=== PATIENT | female | born 1955 | race Caucasian/White ===

== ENCOUNTER 2021-11-14 16:40 | Outpatient (CLI) | payer MEDICARE, SELFPAY ==
[2021-11-14 11:46] LABS: Chloride* 104 mmol/L (96-114); Potassium* 4.2 mmol/L (3.6-5.1); Sodium* 141 mmol/L (135-149)
[2021-11-14 11:48] LABS: Creatinine* 0.9 mg/dL (0.5-1.5); Estimated Glomerular Filt Rate 70 ml/min
[2021-11-14 11:49] LABS: Blood Urea Nitrogen* 21 mg/dL (7-30); Calcium* 9.8 mg/dL (8.4-10.6); Carbon Dioxide* 29 mmol/L (20-32); Glucose* 97 mg/dL (60-115)
[2021-11-14 12:13] LABS: TSH With Reflex to FT4* 0.552 uIU/mL (0.270-4.200)
== END 2021-11-14 16:41 | disposition home or self-care (01) ==
PROVIDERS: PCP Internal Medicine; Visit Provider Internal Medicine
DX: Z01.419 Encounter for gynecological examination (general) (routine) without abnormal findings (principal); E03.9 Hypothyroidism, unspecified; I10 Essential (primary) hypertension
CPT/HCPCS: 80048; 84443

== ENCOUNTER 2021-12-07 14:09 | Emergency (ER) | payer MEDICARE, SELFPAY ==
[2021-12-07] VITALS (17 sets, daily range): BP systolic 118; BP diastolic 73; PULSE 78–97; RESP 18; TEMP 37.1; O2SAT 86–99; BMI 43.0
--- NOTE | 2021-12-07 15:13 | CRLHL7_ITS ---
For Patients: As a result of the Cures Act, medical imaging exams and procedure reports are released immediately into your electronic medical record. You may view this report before your referring provider. If you have questions, please contact your health care provider. Indication: Fever Comparison: None available. Technique: PA and lateral views of the chest Findings: There is hyperinflation and chronic interstitial change with basilar atelectasis versus scar. There is no dense consolidation, effusion or pneumothorax. The cardiomediastinal silhouette is within normal limits. The bony thorax is grossly intact. Impression: Hyperinflation and chronic interstitial change with basilar atelectasis versus scar. Dictated by Ziyad Yanes MD @ 12/07/2021 4:47:00 PM (Electronically Signed)
--- NOTE | 2021-12-07 15:21 | ED.SOB ---
HPI - SOB/Dyspnea General Chief Complaint: Shortness of Breath/Dyspnea Stated Complaint: Low oxygen Time Seen by Provider: 12/07/21 14:43 History of Present Illness HPI Narrative: 66-year-old woman presenting to the emergency department with concern of shortness of breath. Was seen in urgent care with oxygen saturations 82-84%, given DuoNeb and directed to the emergency department. She admits to feeling a little bit better with the DuoNeb. She arrives 87% on room air. Apparently has been having increasing shortness of breath over the last 2 weeks or so. Does smoke. She has underlying suspected diagnosis of COPD. Was directed for formal PFT testing but says has not received of phone call to schedule that appointment. She believes herself to be down in weight with poor appetite at this point. She is wondering if she may have a pneumonia as she is more short of breath and has increased cough when she lays down and this would be consistent with a prior diagnosis of pneumonia. She is also worried about RSV is that it has been going around. Has not had any fever. Does not have any chest pain. No abdominal pain. Cough is not productive. On the 20 of November was seen in primary care for wellness check and initiated on albuterol inhaler which she has been using every couple of hours she says admittedly too often she thinks. She had been using Primatene mist it sounds like prior to this albuterol inhaler. Reviewing records from her visit on the shows oxygen saturation had 93%. Active Problems?(Updated 11/20/21 @ 13:02 by Ciara Jon MD) Morbid obesity with body mass index (BMI) of 40.0 or higher (Acute) E66.01 Osteopenia (Acute) M85.80 by DEXA here 11/30Nicotine dependence (Acute 03/23/12) F17.200 Morbid obesity (Acute 03/23/12) E66.01 Hypothyroidism (Acute 03/23/12) E03.9 on levothyroxineEssential hypertension (Acute 03/23/12) I10 Dxed around 2009, on medication Surgical History?(Updated 11/19/21 @ 09:21 by Uma Galvan) History of tubal ligation (03/23/12) Related Data Previous Rx's Medication Instructions Recorded albuterol sulfate 90 mcg/actuation 2 inh inhalation Q6-8H PRN 11/20/21 aerosol inhaler (ProAir HFA) shortness of breath or wheezing #8.5 grams levothyroxine 150 mcg tablet 150 mcg PO DAILY #90 tabs 11/20/21 lisinopril 20 2 tab PO DAILY #180 tabs 11/20/21 mg-hydrochlorothiazide 25 mg tablet Allergies Allergy/AdvReac Type Severity Reaction Status Date / Time No Known Drug Allergies Allergy Verified 12/07/21 14:26 Review of Systems Status of ROS: Reports: 10 or more systems reviewed and unremarkable except as noted in History and below [facility] Surgical History (Updated 11/19/21 @ 09:21 by Uma Galvan) History of tubal ligation (03/23/12) Social History Smoking Status: Current every day smoker What tobacco products do you use: cigarettes Smoking packs per day: 1 Smoking cigarettes per day: 20.0 Do you use any of these nicotine containing products: None Second hand tobacco smoke exposure: No How often do you have a drink containing alcohol: never How often do you have six or more drinks on one occasion: Never AUDIT-C Alcohol total score: 0 Non-prescribed substance use: denies use Little interest or pleasure in doing things: not at all Feeling down, depressed, or hopeless: not at all Exam Narrative: Exam Narrative: Calm. Seated upright in bed appears to prefer not to lay down. Nasal cannula oxygen in place. At 2 L satting 94%. Cranial nerves 2-12 are intact. Oropharynx is moist with upper denture plate and lower retainer. No stridor. Neck is supple. There is no JVD appreciated. Lungs are with generally quite diminished air sounds. Trace end-expiratory wheezing. She is not particularly labored in breathing at this time. Not tachypneic. Abdomen is obese soft and nontender. Extremities are with mild dependent edema. Nonpitting. Well-perfused. Const: Vital Signs, click to edit/add: Vital Signs - 24 hr 12/07/21 14:21 12/07/21 14:36 12/07/21 15:01 Temperature 98.8 F Pulse Rate 96 84 Pulse Rate [Right Pulse Oximeter] 97 Respiratory Rate 18 Blood Pressure [Ri ght Upper Arm] 118/73 Pulse Oximetry 87 L 92 92 Oxygen Delivery Me thod Room Air Nasal Cannula Nasal Cannula Oxygen Flow Rate 2 2 12/07/21 15:30 12/07/21 15:36 12/07/21 16:06 Temperature Pulse Rate 80 83 96 Pulse Rate [Right Pulse Oximeter] Respiratory Rate Blood Pressure [Ri ght Upper Arm] Pulse Oximetry 93 93 90 Oxygen Delivery Me thod Nasal Cannula Nasal Cannula Nasal Cannula Oxygen Flow Rate 2 2 2 12/07/21 15:12 12/07/21 15:17 12/07/21 16:30 Temperature Pulse Rate 84 Pulse Rate [Right Pulse Oximeter] Respiratory Rate Blood Pressure [Ri ght Upper Arm] Pulse Oximetry 93 94 94 Oxygen Delivery Me thod Nasal Cannula Nasal Cannula Oxygen Flow Rate 2 2 12/07/21 17:00 12/07/21 17:30 12/07/21 18:00 Temperature Pulse Rate 87 82 84 Pulse Rate [Right Pulse Oximeter] Respiratory Rate Blood Pressure [Ri ght Upper Arm] Pulse Oximetry 91 92 90 Oxygen Delivery Me thod Nasal Cannula Nasal Cannula Oxygen Flow Rate 2 2 12/07/21 18:30 12/07/21 19:00 12/07/21 19:30 Temperature Pulse Rate 81 78 79 Pulse Rate [Right Pulse Oximeter] Respiratory Rate Blood Pressure [Ri ght Upper Arm] Pulse Oximetry 91 92 99 Oxygen Delivery Me thod Nasal Cannula Nasal Cannula Oxygen Flow Rate 2 2 12/07/21 19:45 12/07/21 20:00 Temperature Pulse Rate 92 95 Pulse Rate [Right Pulse Oximeter] Respiratory Rate Blood Pressure [Ri ght Upper Arm] Pulse Oximetry 86 L 87 L Oxygen Delivery Me thod Nasal Cannula Oxygen Flow Rate 2 Documenting provider has reviewed patient's vital signs: yes Course Course Hospital Course: We monitored on oximetry. Working to titrate oxygen given likely COPD status. Requested RT involvement. Labs and imaging pending. Albuterol neb at this time as well as Solu-Medrol Coughed more following albuterol nebulization she said. Later in course also received a DuoNeb. Kept for extended period of time in the emergency department looking for improvement and without beds for hospitalization here or elsewhere regionally. Re-evaluations over time continue to show rather low oxygen saturations but never otherwise in what appears to be respiratory distress, breathing easily and speaking in full sentences. Reauscultation does show improved movement of air still with trace end-expiratory wheezes. Still quite tight. She ultimately reports feeling better than she has felt in days Labs with mildly elevated white count and CRP. Venous blood gases with mild CO2 retention. Upon my review of two view chest x-ray I did have some concern of involving infiltrative process in the right lower lung though Radiology over-read suspects more atelectasis or scarring. While mildly elevated white count may be partially due to stress response, I think it prudent to initiate antibiotics in this case. Vital Signs Vital signs: Initial Vital Signs Temperature 98.8 F 12/07/21 14:21 Temperature Source Temporal Artery Scan 12/07/21 14:21 Pulse Rate 97 12/07/21 14:21 Respiratory Rate 18 12/07/21 14:21 Blood Pressure 118/73 12/07/21 14:21 Blood Pressure Mean 88 12/07/21 14:21 Blood Pressure Position Sitting 12/07/21 14:21 Pulse Oximetry 87 L 12/07/21 14:21 Oxygen Delivery Method 12/07/21 14:21 Vital Signs Temperature 98.8 F 12/07/21 14:21 Pulse Rate 97 12/07/21 14:21 Respiratory Rate 18 12/07/21 14:21 Blood Pressure 118/73 12/07/21 14:21 Pulse Oximetry 87 L 12/07/21 14:21 Oxygen Delivery Method 12/07/21 14:21 Temperature 98.8 F 12/07/21 14:21 Pulse Rate 95 12/07/21 20:00 Respiratory Rate 18 12/07/21 14:21 Blood Pressure 118/73 12/07/21 14:21 Pulse Oximetry 87 L 12/07/21 20:00 Oxygen Delivery Method 12/07/21 19:45 Oxygen Flow Rate 2 12/07/21 19:45 MDM - SOB/Dyspnea Medical Records Attestation: I reviewed the patient's medical records. Lab Data Attestation: I reviewed the patient's lab results. Labs: Lab Results 12/07/21 12/07/21 12/07/21 Range/Units 15:45 15:45 15:45 WBC (4.50-11.00) K/uL RBC (4.00-5.20) m/uL Hgb (12.0-16.0) gm/dL Hct (33.0-51.0) % MCV (80-100) fL MCH (26-34) pg MCHC (32-36) gm/dL RDW Coeff of Rick (11.5-15.5) % Plt Count (140-440) K/uL Neut % (Auto) (42.0-72.0) % Lymph % (Auto) (20-44) % Phillips % (Auto) (0.0-11.0) % Eos % (Auto) (0.0-7.0) % Baso % (Auto) (0.0-3.0) % Neut # (Auto) (1.7-7.0) K/uL Lymph # (Auto) (0.90-2.90) K/uL Phillips # (Auto) (0.00-0.90) K/UL Eos # (Auto) (0.00-0.50) K/uL Baso # (Auto) (0.00-0.30) K/uL Abs Immat Gran (auto) (0.00-0.30) K/uL D-Dimer Quant (PE/DVT) 0.48 (0.00-0.50) ug/ml VBG pH 7.392 (7.32-7.43) VBG pCO2 52 H (40-50) mmHG VBG pO2 47.4 H (25-47) mmHG VBG HCO3 32 H (21-28) mmol/L Sodium 139 (135-149) mmol/L Potassium 4.0 (3.6-5.1) mmol/L Chloride 99 (96-114) mmol/L Carbon Dioxide 30 (20-32) mmol/L BUN 24 (7-30) mg/dL Creatinine 1.1 (0.5-1.5) mg/dL Estimated Creat Clear 35.65 Estimated GFR 55 ml/min Glucose 106 (60-115) mg/dL Calcium 9.7 (8.4-10.6) mg/dL Magnesium 1.7 (1.5-2.6) mg/dL Troponin I < 0.01 L (0.01-0.04) ng/mL C-Reactive Protein 1.8 H (0.5-1.0) mg/dL NT-Pro-B Natriuret Pep 180 H (0-125) PG/mL SARS-CoV-2 (PCR) (Negative) Influenza Type A (PCR) (Negative) Influenza Type B (PCR) (Negative) RSV (PCR) (Negative) POC Troponin I (0.01-0.04) ng/ml 12/07/21 12/07/21 12/07/21 Range/Units 15:45 15:50 16:00 WBC 12.29 H (4.50-11.00) K/uL RBC 5.27 H (4.00-5.20) m/uL Hgb 15.3 (12.0-16.0) gm/dL Hct 48.0 (33.0-51.0) % MCV 91 (80-100) fL MCH 29 (26-34) pg MCHC 32 (32-36) gm/dL RDW Coeff of Rick 15.9 H (11.5-15.5) % Plt Count 308 (140-440) K/uL Neut % (Auto) 75.6 H (42.0-72.0) % Lymph % (Auto) 12.2 L (20-44) % Phillips % (Auto) 6.6 (0.0-11.0) % Eos % (Auto) 3.7 (0.0-7.0) % Baso % (Auto) 1.8 (0.0-3.0) % Neut # (Auto) 9.30 H (1.7-7.0) K/uL Lymph # (Auto) 1.50 (0.90-2.90) K/uL Phillips # (Auto) 0.80 (0.00-0.90) K/UL Eos # (Auto) 0.50 (0.00-0.50) K/uL Baso # (Auto) 0.20 (0.00-0.30) K/uL Abs Immat Gran (auto) 0.01 (0.00-0.30) K/uL D-Dimer Quant (PE/DVT) (0.00-0.50) ug/ml VBG pH (7.32-7.43) VBG pCO2 (40-50) mmHG VBG pO2 (25-47) mmHG VBG HCO3 (21-28) mmol/L Sodium (135-149) mmol/L Potassium (3.6-5.1) mmol/L Chloride (96-114) mmol/L Carbon Dioxide (20-32) mmol/L BUN (7-30) mg/dL Creatinine (0.5-1.5) mg/dL Estimated Creat Clear Estimated GFR ml/min Glucose (60-115) mg/dL Calcium (8.4-10.6) mg/dL Magnesium (1.5-2.6) mg/dL Troponin I (0.01-0.04) ng/mL C-Reactive Protein (0.5-1.0) mg/dL NT-Pro-B Natriuret Pep (0-125) PG/mL SARS-CoV-2 (PCR) Negative SARS-CoV-2 (Negative) Influenza Type A (PCR) Negative PCR FLU A (Negative) Influenza Type B (PCR) Negative PCR FLU B (Negative) RSV (PCR) Negative PCR RSV (Negative) POC Troponin I 0.00 L (0.01-0.04) ng/ml Discharge Plan Discharge Clinical Impression: COPD with exacerbation, Nicotine dependence, Hypoxia Patient Disposition: Home w/ Parent or Adult Condition: Stable Additional Instructions: Please do best to stop smoking. As you said you have not been able to smoke lately anyway. Might check with [employer] or [email or web address] for resources and/or follow-up with your doctor to discuss further. Do make appointment for follow-up in clinic in a week. Follow up also on that testing for your lung function. I suspect you will need other controller medication including different inhalers. Use your current inhaler (albuterol) with a spacer as demonstrated by [facility]piratory therapy [facility]aspreet. I would use your albuterol 4 times a day regardless of need for the next 4 days. Return for increasing and persistent shortness of breath, chest pain, lightheadedness, fever. Remember you have albuterol inhaler refills. Take the prednisone as 60 mg(3 tablets) tomorrow then 40 mg(2 tablets) daily for days 3 through 6, then 20 mg daily days 7 through 10. Start the doxycycline tonight. Prescriptions: No Action albuterol sulfate [ProAir HFA] 90 mcg/actuation HFA aerosol inhaler 2 inh inhalation Q6-8H PRN (Reason: shortness of breath or wheezing) Qty: 8.5 5RF levothyroxine 150 mcg tablet 150 mcg PO DAILY Qty: 90 3RF lisinopril-hydrochlorothiazide 20-25 mg tablet 2 tab PO DAILY Qty: 180 3RF Follow Up/Referrals: Ciara Jon MD [Primary Care Provider] - Stand Alone Forms: [employer] Info Instructions
[2021-12-07] MEDS: ALBUTEROL SULFATE 2.5 MG/3 ML VIAL.NEB NEB (15:37)
[2021-12-07 16:00] LABS: HCO3 VBG 32 mmol/L (21-28); PCO2 VBG 52 mmHG (40-50); PO2 VBG 47.4 mmHG (25-47); pH VBG 7.392 (7.32-7.43)
[2021-12-07 16:15] LABS: Chloride* 99 mmol/L (96-114); Sodium* 139 mmol/L (135-149)
[2021-12-07 16:18] LABS: Creatinine* 1.1 mg/dL (0.5-1.5); Est. Creatinine Clearance* 35.65; Estimated Glomerular Filt Rate 55 ml/min
[2021-12-07 16:19] LABS: Blood Urea Nitrogen* 24 mg/dL (7-30); Calcium* 9.7 mg/dL (8.4-10.6); Carbon Dioxide* 30 mmol/L (20-32); Glucose* 106 mg/dL (60-115); Magnesium* 1.7 mg/dL (1.5-2.6)
[2021-12-07 16:20] LABS: D Dimer Quantitative* 0.48 ug/ml (0.00-0.50)
[2021-12-07 16:22] LABS: C Reactive Protein* 1.8 mg/dL (0.5-1.0)
[2021-12-07 16:27] LABS: NT Pro B Type NatriureticPept* 180 PG/mL (0-125)
[2021-12-07 16:36] LABS: Basophils Percent Auto 1.8 % (0.0-3.0); Eosinophils Percent Auto 3.7 % (0.0-7.0); Hemoglobin* 15.3 gm/dL (12.0-16.0); Immature Granulocytes Abs Auto 0.01 K/uL (0.00-0.30); Lymphocytes Percent Auto 12.2 % (20-44); Mean Corpuscular HGB Conc 32 gm/dL (32-36); Mean Corpuscular Hemoglobin 29 pg (26-34); Mean Corpuscular Volume 91 fL (80-100); Monocytes Percent Auto 6.6 % (0.0-11.0); Neutrophils Percent Auto 75.6 % (42.0-72.0); Platelet Count* 308 K/uL (140-440); RDW Coefficient of Variation % 15.9 % (11.5-15.5); Red Blood Count 5.27 m/uL (4.00-5.20); Slide Review Reflex No; Troponin I* < 0.01 ng/mL (0.01-0.04); White Blood Count* 12.29 K/uL (4.50-11.00)
[2021-12-07] MEDS: METHYLPREDNISOLONE SOD SUCC 62.5 MG/ML (125) 93.75 MG IVP (16:37)
[2021-12-07 16:43] LABS: PCR FLU A Negative PCR FLU A (Negative); PCR FLU B Negative PCR FLU B (Negative); PCR RSV Negative PCR RSV (Negative)
[2021-12-07 16:51] LABS: SARS PCR* Negative SARS-CoV-2 (Negative)
--- NOTE | 2021-12-07 18:10 | ED.NURSE ---
took pt off O2 to trial sats. O2 dropped to 84% on RA. 2L O2 NC reapplied to pt.
--- NOTE | 2021-12-07 19:09 | ED.NURSE ---
Pt O2 weaned to 1L NC. Will continue to monitor.
[2021-12-07] MEDS: IPRAT-ALBUT 0.5-2.5 MG/3 ML NEB 1 NEB IH (19:20)
--- NOTE | 2021-12-07 19:42 | ED.NURSE ---
Pt weaned off O2 after Duoneb. Down to 84% on RA. 2L O2 NC reapplied to pt. notified.
== END 2021-12-07 20:35 | disposition home or self-care (01) ==
PROVIDERS: Emergency Provider Family Medicine; PCP Internal Medicine
DX: J44.1 Chronic obstructive pulmonary disease with (acute) exacerbation (principal); Z72.0 Tobacco use
CPT/HCPCS: 36415; 71046; 80048; 82803; 83735; 83880; 84484; 85025; 85379; 86140; 87502; 87634; 87635; 94640; 94761; 96374; 99284; 99285; J2930

== ENCOUNTER 2021-12-17 12:44 | Outpatient (CLI) | payer MEDICARE, SELFPAY ==
--- NOTE | 2021-12-17 13:00 | CRLHL7_ITS ---
For Patients: As a result of the Century Cures Act, medical imaging exams and procedure reports are released immediately into your electronic medical record. You may view this report before your referring provider. If you have questions, please contact your health care provider. DIGITAL SCREENING BILATERAL MAMMOGRAM USING TOMOSYNTHESIS AND COMPUTER-AIDED DETECTION INDICATION: 66-year-old asymptomatic female. Screening evaluation. TECHNIQUE: CC and MLO views were obtained. Digital breast tomosynthesis utilized. Computer-aided detection utilized. COMPARISON: 11/16/2020, 11/11/2019. FINDINGS: Breast Composition: The breasts are almost entirely fatty Within the upper outer RIGHT breast between the 9 and 10 o`clock position 11 cm from the nipple in the CC projection, image 27 of 78 of the CC imaging and image 33 of 82 of the MLO view is a 3-4 millimeter tiny slightly irregular nodules or densities which was not present previously. A spot compression view in the CC projection as well as a true ML view recommended as a first step. Breast ultrasound may be required. The LEFT breast is negative and unchanged. IMPRESSION: 1. New 3-4 millimeter nodule in the upper outer RIGHT breast between the 9 and 10 o`clock position approximately 11 cm from the RIGHT nipple. Additional imaging and ultrasound recommended. 2. Negative LEFT breast. BI-RADS Category 0: Incomplete: Need Additional Imaging Evaluation and/or Prior Mammograms for Comparison [facility] will contact the patient for follow-up. A lay language report of this examination will be provided to the patient. Dictated by: David Zamarripa MD @12/18/2021 8:26:12 AM j/Dictated by: David Zamarripa MD @ 12/18/2021 8:26:00 AM (Electronically Signed)
== END 2021-12-17 12:45 | disposition home or self-care (01) ==
LOC: MAMMO 12:44
PROVIDERS: PCP Internal Medicine; Visit Provider Internal Medicine
DX: Z12.31 Encounter for screening mammogram for malignant neoplasm of breast (principal); N63.10 Unspecified lump in the right breast, unspecified quadrant
CPT/HCPCS: 77063; 77067

== ENCOUNTER 2021-12-19 09:33 | Outpatient (CLI) | payer MEDICARE, SELFPAY ==
--- NOTE | 2021-12-19 09:45 | CRLHL7_ITS ---
For Patients: As a result of the Cures Act, medical imaging exams and procedure reports are released immediately into your electronic medical record. You may view this report before your referring provider. If you have questions, please contact your health care provider. RIGHT DIAGNOSTIC DIGITAL MAMMOGRAM WITH COMPUTER-AIDED DETECTION AND TOMOSYNTHESIS, 12/19/2021 INDICATION: Follow-up nodule in upper outer RIGHT breast. TECHNIQUE: Diagnostic RIGHT breast mammogram. A true mL view was performed. Spot compression views in the CC projection performed. Digital breast tomosynthesis and computer-aided detection utilized. COMPARISON: December 17, 2021. BREAST COMPOSITION: The breast is almost entirely fatty. FINDINGS: The previously suggested nodular density in the central outer upper outer RIGHT breast has dissipated on these additional views. Ultrasound is not recommended at this time. Annual mammography is recommended. These findings were discussed briefly with the patient. IMPRESSION: Negative additional views of the RIGHT breast. RECOMMENDATION: Annual mammography is recommended BI-RADS Category 1: Negative A lay language report of this examination will be provided to the patient. Dictated by: David Zamarripa MD @12/19/2021 10:50:36 AM [email or web address] RD/Dictated by: David Zamarripa MD @ 12/19/2021 10:50:00 AM (Electronically Signed)
== END 2021-12-19 09:34 | disposition home or self-care (01) ==
LOC: MAMMO 09:33
PROVIDERS: PCP Internal Medicine; Visit Provider Internal Medicine
DX: N63.10 Unspecified lump in the right breast, unspecified quadrant (principal); R92.8 Other abnormal and inconclusive findings on diagnostic imaging of breast
CPT/HCPCS: 77065; G0279

== ENCOUNTER 2021-12-29 11:36 | Emergency (ER) | payer MEDICARE, SELFPAY ==
[2021-12-29] VITALS (13 sets, daily range): BP systolic 92–130; BP diastolic 51–72; PULSE 81–107; TEMP 36.6; O2SAT 80–100; BMI 39.1
--- NOTE | 2021-12-29 12:07 | ED.NURSE ---
On arrival, pt at 80% on RA. Placed on 3L O2 NC, O2 up to ~92%.
--- NOTE | 2021-12-29 12:26 | ED.SOB ---
HPI - SOB/Dyspnea General Chief Complaint: Shortness of Breath/Dyspnea Stated Complaint: Trouble breathing Time Seen by Provider: 12/29/21 12:10 History of Present Illness HPI Narrative: This 66-year-old female comes in reporting shortness of breath. She was seen about 3 weeks ago for similar circumstances at which time she had x-ray and labs done. She received prescription for a steroid course along with a antibiotic. She has also been using an inhaler. She states that she has run out of her inhaler and called for refill on the pharmacy would not allow it for some reason. She states that she began to be more short of breath after finishing this steroid. She is not on any preventative inhaler medication. She is a smoker and is trying to quit but still is smoking a half pack a day. She does not report any fevers or signs of respiratory infection. She has an oximeter at home and noted that her oximetry at rest was at 80%. This was also seen upon arrival here. She was placed on 3 L nasal cannula and her oximetry normalized at around 92-95%. The patient states that while she was on albuterol and the steroid her oximetry was normal. Related Data Previous Rx's Medication Instructions Recorded albuterol sulfate 90 mcg/actuation 2 inh inhalation Q6-8H PRN 11/20/21 aerosol inhaler (ProAir HFA) shortness of breath or wheezing #8.5 grams levothyroxine 150 mcg tablet 150 mcg PO DAILY #90 tabs 11/20/21 lisinopril 20 2 tab PO DAILY #180 tabs 11/20/21 mg-hydrochlorothiazide 25 mg tablet albuterol sulfate 90 mcg/actuation 2 puff inhalation Q4-6H PRN 12/29/21 aerosol inhaler (Proventil HFA) shortness of breath or wheezing #8.5 grams fluticasone 100 mcg-salmeterol 50 1 inh inhalation BID #60 ea 12/29/21 mcg/dose blistr powdr for inhalation (Advair Diskus) methylprednisolone 4 mg tablets in See Rx Instructions PO .COMPLEX 12/29/21 a dose pack (Medrol (Renato)) #21 ea Allergies Allergy/AdvReac Type Severity Reaction Status Date / Time No Known Drug Allergies Allergy Verified 12/13/21 12:58 Review of Systems Status of ROS: Reports: 10 or more systems reviewed and unremarkable except as noted in History and below Narrative: Constitutional: No fevers, no weight gain or loss. Eyes: No discharge. No vision changes. HENT: No congestion, no sore throat, no ear pain. Cardiovascular: No chest pain, no palpitations. Respiratory: Shortness of breath as described above. Gastrointestinal: No abdominal pain, no vomiting, no diarrhea. Genitourinary: No dysuria, no hematuria. Musculoskeletal: Normal range of motion. Skin: No rashes, no pruritis. Neurological: No dizziness, weakness, sensory change, speech change. Endo/Heme/Allergies: No bruising or bleeding. No polydipsia. Pysch: no suicidality, no anxiety, no insomnia. All other systems reviewed and are negative. [facility] [place] [facility] History (Updated 11/19/21 @ 09:21 by Uma Galvan) History of tubal ligation (03/23/12) Social History Smoking Status: Current every day smoker What tobacco products do you use: cigarettes Smoking packs per day: 0.5 Smoking cigarettes per day: 10.0 Do you use any of these nicotine containing products: None Second hand tobacco smoke exposure: No How often do you have a drink containing alcohol: never How often do you have six or more drinks on one occasion: Never AUDIT-C Alcohol total score: 0 Non-prescribed substance use: denies use Little interest or pleasure in doing things: not at all Feeling down, depressed, or hopeless: not at all Exam Narrative: Exam Narrative: Constitutional: Well-developed, well-nourished, no acute distress. HEENT: Normocephalic, atraumatic. Neck: Normal range of motion. Nontender. Supple. Heart: Regular. No murmurs. Normal rate. Intact distal pulses. Lungs: Clear to auscultation. No chest discomfort. Decreased air movement but no use of accessory muscles. Oximetry is at 92% on 1.5 L nasal cannula oxygen. Abdomen: Normal bowel sounds. Nontender. No rebound tenderness. Genitalia: Deferred. Back: No midline tenderness. Normal range of motion. Extremities: Normal range of motion. No injury. Skin: Intact. No rash. Warm. No erythema or pallor. Neurologic: No altered sensation. No weakness. Alert and oriented. Psychiatric: No suicidality. No anxiety or depression. No insomnia. Nursing notes and vitals signs are reviewed. Const: Vital Signs, click to edit/add: Vital Signs - 24 hr 12/29/21 12:00 12/29/21 12:05 12/29/21 12:00 Temperature 97.8 F Pulse Rate 100 Pulse Rate [Left P ulse Oximeter] 107 H Blood Pressure Blood Pressure [Ri ght Upper Arm] 130/68 Pulse Oximetry 80 L 92 92 Oxygen Delivery Me thod Room Air Nasal Cannula Oxygen Flow Rate 3 12/29/21 12:02 12/29/21 12:08 12/29/21 12:03 Temperature Pulse Rate 100 103 H Pulse Rate [Left P ulse Oximeter] Blood Pressure 114/62 Blood Pressure [Ri ght Upper Arm] Pulse Oximetry 95 80 L 96 Oxygen Delivery Me thod Nasal Cannula Nasal Cannula Nasal Cannula Oxygen Flow Rate 3 2 3 12/29/21 12:30 12/29/21 12:32 12/29/21 13:00 Temperature Pulse Rate 93 95 87 Pulse Rate [Left P ulse Oximeter] Blood Pressure 97/51 L Blood Pressure [Ri ght Upper Arm] Pulse Oximetry 94 94 100 Oxygen Delivery Me thod Nasal Cannula Nasal Cannula Oxygen Flow Rate 1.5 1.5 4.5 12/29/21 13:02 12/29/21 13:03 12/29/21 13:18 Temperature Pulse Rate 86 81 Pulse Rate [Left P ulse Oximeter] Blood Pressure 92/53 L Blood Pressure [Ri ght Upper Arm] Pulse Oximetry 99 100 89 Oxygen Delivery Me thod Room Air Oxygen Flow Rate 4.5 4.5 Course Vital Signs Vital signs: Initial Vital Signs Temperature 97.8 F 12/29/21 12:00 Temperature Source Temporal Artery Scan 12/29/21 12:00 Pulse Rate 100 12/29/21 12:00 Blood Pressure 130/68 12/29/21 12:00 Blood Pressure Mean 88 12/29/21 12:00 Blood Pressure Position Sitting 12/29/21 12:00 Pulse Oximetry 80 L 12/29/21 12:00 Oxygen Delivery Method 12/29/21 12:00 Oxygen Flow Rate 3 12/29/21 12:00 Vital Signs Temperature 97.8 F 12/29/21 12:00 Pulse Rate 100 12/29/21 12:00 Blood Pressure 130/68 12/29/21 12:00 Pulse Oximetry 80 L 12/29/21 12:00 Oxygen Delivery Method 12/29/21 12:00 Oxygen Flow Rate 3 12/29/21 12:00 Temperature 97.8 F 12/29/21 12:00 Pulse Rate 81 12/29/21 13:03 Blood Pressure 92/53 L 12/29/21 13:02 Pulse Oximetry 89 12/29/21 13:18 Oxygen Delivery Method 12/29/21 13:18 Oxygen Flow Rate 4.5 12/29/21 13:03 MDM - SOB/Dyspnea MDM Narrative Medical decision making narrative: This patient comes in reporting shortness of breath. She has COPD and continues to smoke although she states that she has cut down in amount that she is smoking daily. She felt a lot better while on a steroid and now is not on any medications for breathing. She ran out of her albuterol and states that the pharmacy would not refill at because she used it quicker than was indicated in the prescription apparently. She arrives here with oximetry in the low 80s % on room air. She benefited from oxygen at 3 mL nasal cannula initially and this was weaned down to 1.5 mL. She was maintaining oximetry at 95-96% on this amount. She had a thorough workup a few weeks ago and in a process of shared decision making she declined any further studies this way today. She states that she is feeling normal other than shortness of breath. She did receive a DuoNeb and an oral dose of dexamethasone. She states that this helped her feel better. Her oxygen was removed and she had oximetry at 89% on room air. She wishes to return home. This is not far from her baseline oximetry. I strongly urged her to stop smoking as this is the most effective treatment of her current symptoms. She may need home oxygen if trans continue this way. Additionally she is not adequately treated with medications. She did receive an inhaler for albuterol through the [employer] machine here. I also prescribed an inhaler for albuterol from her pharmacy. Additionally she received prescription for Medrol Dosepak and Advair. I advised her to follow-up with her primary physician. She does have a pulmonology clinic appointment in a couple weeks. Lab Data Labs: Lab Results 12/29/21 Range/Units 11:43 SARS-CoV-2 (PCR) Negative SARS-CoV-2 (Negative) Influenza Type A (PCR) Negative PCR FLU A (Negative) Influenza Type B (PCR) Negative PCR FLU B (Negative) RSV (PCR) Negative PCR RSV (Negative) Discharge Plan Discharge Clinical Impression: Hypoxia, COPD (chronic obstructive pulmonary disease) Patient Disposition: Home, Self-Care Condition: Improved Additional Instructions: Take medications as prescribed. Follow up with MD or return if worsening symptoms happen. Smoking cessation is mandatory for improvement of symptoms. Prescriptions: New methylprednisolone [Medrol (Renato)] 4 mg tablets,dose pack See Rx Instructions .ROUTE .COMPLEX Qty: 21 0RF Rx Instructions: orally per package directions albuterol sulfate [Proventil HFA] 90 mcg/actuation HFA aerosol inhaler 2 puff inhalation Q4-6H PRN (Reason: shortness of breath or wheezing) Qty: 8.5 0RF fluticasone propion-salmeterol [Advair Diskus] 100-50 mcg/dose blister with device 1 inh inhalation BID Qty: 60 2RF No Action albuterol sulfate [ProAir HFA] 90 mcg/actuation HFA aerosol inhaler 2 inh inhalation Q6-8H PRN (Reason: shortness of breath or wheezing) Qty: 8.5 5RF levothyroxine 150 mcg tablet 150 mcg PO DAILY Qty: 90 3RF lisinopril-hydrochlorothiazide 20-25 mg tablet 2 tab PO DAILY Qty: 180 3RF Follow Up/Referrals: Ciara Jon MD [Primary Care Provider] - Stand Alone Forms: [facility] Info Instructions
[2021-12-29 12:39] LABS: PCR FLU A Negative PCR FLU A (Negative); PCR FLU B Negative PCR FLU B (Negative); PCR RSV Negative PCR RSV (Negative)
[2021-12-29 12:42] LABS: SARS PCR* Negative SARS-CoV-2 (Negative)
[2021-12-29] MEDS: dexAMETHasone 10 MG/ML inj PO (12:52)
[2021-12-29] MEDS: IPRAT-ALBUT 0.5-2.5 MG/3 ML NEB 1 NEB IH (12:52)
== END 2021-12-29 14:11 | disposition home or self-care (01) ==
PROVIDERS: Emergency Provider Emergency Medicine Emergency Medical Services; PCP Internal Medicine
DX: J44.9 Chronic obstructive pulmonary disease, unspecified (principal); R09.02 Hypoxemia
CPT/HCPCS: 87502; 87634; 87635; 94640; 94761; 99284; 99285; J1100

== ENCOUNTER 2022-02-19 11:12 | Observation (INO) | payer MEDICARE, SELFPAY ==
[2022-02-19] VITALS (30 sets, daily range): BP systolic 92–153; BP diastolic 58–87; PULSE 76–106; RESP 18–20; TEMP 36.2–36.9; O2SAT 84–100; BMI 39.1; BMI 43.4
--- NOTE | 2022-02-19 11:28 | ED.NURSE ---
Pt 84% on RA on arrival. Placed on 4L O2 NC, brought pt up to 90%. Titrated down to 2L O2, now satting at 94% on 2L.
--- NOTE | 2022-02-19 11:30 | ED.GENADULT ---
HPI - General Adult General Time Seen by Provider: 11:30 Date Seen: 02/19/22 Chief complaint: Shortness of Breath/Dyspnea Stated complaint: Shortness of breath Time Seen by Provider: 02/19/22 11:30 Source: patient and RN notes reviewed Mode of arrival: ambulatory Limitations: no limitations History of Present Illness HPI narrative: Patient coming in with shortness of breath. Has probable underlying copd, continues to use few cigarettes daily. Has not noted fevers, no evidence of upper respiratory infection that she is aware of. No stomach symptoms such as nausea/vomiting. No chest pain, no increased lower extremity edema. No travel, no ill contacts. She really started having increased symptoms since this weekend, probably Friday. She is checked her oxygen some this weekend, some today and has been in the 80s. She does not have home oxygen. She has been cutting down her smoking since this fall. She has not formally been to a rn clinical documentation, do not think she has had formal PFT testing done yet. She has been in the ER few times, did have a follow-up with Dr. Jon at the end of January. Related Data Home Medications Medication Instructions Recorded Confirmed lisinopril 20 2 tab PO HS 02/19/22 02/19/22 mg-hydrochlorothiazide 25 mg tablet Previous Rx's Medication Instructions Recorded levothyroxine 150 mcg tablet 150 mcg PO DAILY #90 tabs 11/20/21 albuterol sulfate 2.5 mg/3 mL 2.5 mg (3 mL) inhalation Q6H PRN 02/07/22 (0.083 %) solution for nebulization bronchospasm #75 mL albuterol sulfate 90 mcg/actuation 2 - 4 puff inhalation Q2-4H PRN 02/07/22 aerosol inhaler (Proventil HFA) shortness of breath or wheezing #8.5 grams fluticasone 250 mcg-salmeterol 50 1 inh inhalation BID #60 ea 02/07/22 mcg/dose blistr powdr for inhalation (Advair Diskus) Allergies Allergy/AdvReac Type Severity Reaction Status Date / Time No Known Drug Allergies Allergy Verified 02/07/22 10:27 Review of Systems Status of ROS: Reports: 10 or more systems reviewed and unremarkable except as noted in History and below [facility] Medical History (Updated 02/19/22 @ 16:25 by Wilda Cruz MD) Abnormal mini-mental status exam Essential hypertension (03/23/12) Hypothyroidism (03/23/12) Morbid obesity with body mass index (BMI) of 40.0 or higher Nicotine dependence (03/23/12) Osteopenia Surgical History History of tubal ligation (03/23/12) Family History (Updated 02/19/22 @ 16:07 by Genoveva Vargas MD) Son Healthy adult Daughter Healthy adult Social History (Updated 02/19/22 @ 16:08 by Genoveva Vargas MD) Narrative: Does not know family history because she was adopted. Living on the main level in a home with her daughter. Has been cutting down smoking over the past two months, now down to 1/2 ppd. Rarely drinks alcohol. Occassional use of marajuana gummies at night. No other recreational drugs. FULL CODE Smoking Status: Current every day smoker What tobacco products do you use: cigarettes Smoking packs per day: 0.5 Smoking cigarettes per day: 10.0 Do you use any of these nicotine containing products: None Second hand tobacco smoke exposure: No How often do you have a drink containing alcohol: never How often do you have six or more drinks on one occasion: Never AUDIT-C Alcohol total score: 0 Non-prescribed substance use: denies use Little interest or pleasure in doing things: not at all Feeling down, depressed, or hopeless: not at all Exam Const: Vital Signs, click to edit/add: Vital Signs - 24 hr 02/19/22 11:26 02/19/22 11:29 02/19/22 12:01 Temperature 97.1 F L Pulse Rate Pulse Rate [Pulse Oximeter] 106 H Respiratory Rate Blood Pressure Blood Pressure [Ri ght Upper Arm] 153/81 H Pulse Oximetry 84 L 94 92 Oxygen Delivery Me thod Room Air Nasal Cannula Oxygen Flow Rate 2 02/19/22 11:25 02/19/22 11:26 02/19/22 11:30 Temperature Pulse Rate 99 98 91 Pulse Rate [Pulse Oximeter] Respiratory Rate Blood Pressure 106/65 Blood Pressure [Ri ght Upper Arm] Pulse Oximetry 91 93 94 Oxygen Delivery Me thod Nasal Cannula Nasal Cannula Nasal Cannula Oxygen Flow Rate 2 2 2 02/19/22 11:31 02/19/22 11:45 02/19/22 12:00 Temperature Pulse Rate 96 88 87 Pulse Rate [Pulse Oximeter] Respiratory Rate Blood Pressure 94/66 Blood Pressure [Ri ght Upper Arm] Pulse Oximetry 94 91 91 Oxygen Delivery Me thod Nasal Cannula Nasal Cannula Nasal Cannula Oxygen Flow Rate 2 2 2 02/19/22 12:01 02/19/22 12:41 02/19/22 12:02 Temperature Pulse Rate 90 89 Pulse Rate [Pulse Oximeter] Respiratory Rate 20 Blood Pressure 105/66 Blood Pressure [Ri ght Upper Arm] Pulse Oximetry 92 94 92 Oxygen Delivery Me thod Nasal Cannula Nasal Cannula Nasal Cannula Oxygen Flow Rate 2 2 2 02/19/22 12:15 02/19/22 12:30 02/19/22 12:31 Temperature Pulse Rate 85 90 97 Pulse Rate [Pulse Oximeter] Respiratory Rate Blood Pressure 103/79 Blood Pressure [Ri ght Upper Arm] Pulse Oximetry 100 87 L 87 L Oxygen Delivery Me thod Aerosol Mask Nasal Cannula Nasal Cannula Oxygen Flow Rate 10 1 1 02/19/22 12:45 02/19/22 13:00 02/19/22 13:01 Temperature Pulse Rate 90 91 90 Pulse Rate [Pulse Oximeter] Respiratory Rate Blood Pressure 106/65 Blood Pressure [Ri ght Upper Arm] Pulse Oximetry 87 L 86 L 87 L Oxygen Delivery Me thod Nasal Cannula Nasal Cannula Nasal Cannula Oxygen Flow Rate 1 1 1 02/19/22 13:02 02/19/22 13:15 02/19/22 13:30 Temperature Pulse Rate 88 83 83 Pulse Rate [Pulse Oximeter] Respiratory Rate Blood Pressure Blood Pressure [Ri ght Upper Arm] Pulse Oximetry 87 L 91 86 L Oxygen Delivery Me thod Nasal Cannula Nasal Cannula Nasal Cannula Oxygen Flow Rate 1 2 2 02/19/22 13:31 02/19/22 13:45 02/19/22 14:00 Temperature Pulse Rate 82 89 82 Pulse Rate [Pulse Oximeter] Respiratory Rate Blood Pressure 92/58 L Blood Pressure [Ri ght Upper Arm] Pulse Oximetry 86 L 90 89 Oxygen Delivery Me thod Nasal Cannula Nasal Cannula Nasal Cannula Oxygen Flow Rate 2 2 2 02/19/22 14:01 02/19/22 14:15 Temperature Pulse Rate 80 87 Pulse Rate [Pulse Oximeter] Respiratory Rate Blood Pressure 92/61 Blood Pressure [Ri ght Upper Arm] Pulse Oximetry 89 89 Oxygen Delivery Me thod Nasal Cannula Nasal Cannula Oxygen Flow Rate 2 2 Documenting provider has reviewed patient's vital signs: yes Common normals: no apparent distress, oriented x3, no limitations, healthy appearing and alert Nutritional appearance: obese Other: Sitting up on the bed. HENMT: Common normals: normocephalic, head/scalp atraumatic, hearing grossly normal bilaterally and external nose normal Head and scalp: normocephalic and atraumatic Nose: external nose normal Eye: Common normals: PERRL, EOMs intact bilaterally, conjunctivae normal and no scleral icterus Conjunctiva: conjunctiva(e) normal Pupil: PERRL Neck & C-Spine: Common normals: full ROM (Neck is thick, difficult to assess any JVD), no lymphadenopathy, supple, no meningeal signs and thyroid normal Thyroid: thyroid normal Chest: Common normals: inspection of chest normal and palpation of chest normal Resp: Common normals: normal respiratory effort, no retractions and no use of accessory muscles Other: Has a squeak on the left side with diminished breath sounds. Has definite expiratory wheezing heard on the right but overall decreased airflow throughout. Cardio: Common normals: regular rate, regular rhythm, S1 normal heart sound, S2 normal heart sound, no gallops, no clicks, no murmurs and no rub Rate: regular rate Rhythm: regular rhythm Heart sounds: S1 normal and S2 normal GI: Common normals: Normal to inspection, nondistended, normoactive bowel sounds present, soft to palpation and non-tender Palpation: soft Extremity: Other: No lower extremity edema. Neuro: Common normals: oriented x3 Sensorium/orientation: alert Meningeal signs: no meningeal signs Course Course Hospital Course: Will have her on cardiac monitoring pulse oximetry and supplemental oxygen as she was hypoxic when she came in. She will get a portable chest x-ray, rule out any of the viruses on the triple swab. Will obtain a full complement of labs. This is certainly a COPD exacerbation, will start with a DuoNeb. Will give her oral steroids, rule out any need for antibiotics. Will consider cardiac causes for hypoxia as well as thromboembolic. Have reviewed with patient that it is very likely she will need hospitalization. Consultations Consultation #1: Spoke with hospitalist Dr. Vargas regarding patient. She agrees acceptance of this patient. Time: 13:50 Vital Signs Vital signs: Initial Vital Signs Pulse Rate 99 02/19/22 11:25 Blood Pressure 106/65 02/19/22 11:25 Blood Pressure Mean 78 02/19/22 11:25 Pulse Oximetry 91 02/19/22 11:25 Oxygen Delivery Method 02/19/22 11:25 Oxygen Flow Rate 2 02/19/22 11:25 Vital Signs Pulse Rate 99 02/19/22 11:25 Blood Pressure 106/65 02/19/22 11:25 Pulse Oximetry 91 02/19/22 11:25 Oxygen Delivery Method 02/19/22 11:25 Oxygen Flow Rate 2 02/19/22 11:25 Temperature 97.2 F L 02/19/22 14:52 Pulse Rate 80 02/19/22 14:52 Respiratory Rate 20 02/19/22 14:52 Blood Pressure 125/87 02/19/22 14:52 Pulse Oximetry 90 02/19/22 14:52 Oxygen Delivery Method 02/19/22 14:52 Oxygen Flow Rate 2 02/19/22 14:52 Medical Decision Making Lab Data Lab results reviewed: Yes I reviewed the patient's lab results Labs: Lab Results 02/19/22 02/19/22 02/19/22 Range/Units 11:20 12:02 12:20 WBC 10.23 (4.50-11.00) K/uL RBC 5.18 (4.00-5.20) m/uL Hgb 14.8 (12.0-16.0) gm/dL Hct 46.3 (33.0-51.0) % MCV 89 (80-100) fL MCH 29 (26-34) pg MCHC 32 (32-36) gm/dL RDW Coeff of Rick 16.0 H (11.5-15.5) % Plt Count 332 (140-440) K/uL Neut % (Auto) 69.9 (42.0-72.0) % Lymph % (Auto) 16.5 L (20-44) % King % (Auto) 6.1 (0.0-11.0) % Eos % (Auto) 6.9 (0.0-7.0) % Baso % (Auto) 0.5 (0.0-3.0) % Neut # (Auto) 7.15 H (1.7-7.0) K/uL Lymph # (Auto) 1.70 (0.90-2.90) K/uL King # (Auto) 0.60 (0.00-0.90) K/UL Eos # (Auto) 0.71 H (0.00-0.50) K/uL Baso # (Auto) 0.05 (0.00-0.30) K/uL D-Dimer Quant (PE/DVT) (0.00-0.50) ug/ml VBG pH (7.32-7.43) VBG pCO2 (40-50) mmHG VBG pO2 (25-47) mmHG VBG HCO3 (21-28) mmol/L Sodium (135-149) mmol/L Potassium (3.6-5.1) mmol/L Chloride (96-114) mmol/L Carbon Dioxide (20-32) mmol/L BUN (7-30) mg/dL Creatinine (0.5-1.5) mg/dL Estimated Creat Clear Estimated GFR ml/min Glucose (60-115) mg/dL Lactate (0.5-1.9) mmol/L Calcium (8.4-10.6) mg/dL Total Bilirubin (0.1-1.5) mg/dL AST (12-35) U/L ALT (4-35) U/L Alkaline Phosphatase (40-150) U/L C-Reactive Protein (0.5-1.0) mg/dL NT-Pro-B Natriuret Pep pg/mL Total Protein (6.0-8.3) g/dL Albumin (3.3-5.0) g/dL SARS-CoV-2 (PCR) Negative SARS-CoV-2 (Negative) Influenza Type A (PCR) Negative PCR FLU A (Negative) Influenza Type B (PCR) Negative PCR FLU B (Negative) RSV (PCR) Negative PCR RSV (Negative) POC Troponin I 0.00 L (0.01-0.04) ng/ml 02/19/22 02/19/22 02/19/22 Range/Units 12:20 12:20 12:20 WBC (4.50-11.00) K/uL RBC (4.00-5.20) m/uL Hgb (12.0-16.0) gm/dL Hct (33.0-51.0) % MCV (80-100) fL MCH (26-34) pg MCHC (32-36) gm/dL RDW Coeff of Rick (11.5-15.5) % Plt Count (140-440) K/uL Neut % (Auto) (42.0-72.0) % Lymph % (Auto) (20-44) % King % (Auto) (0.0-11.0) % Eos % (Auto) (0.0-7.0) % Baso % (Auto) (0.0-3.0) % Neut # (Auto) (1.7-7.0) K/uL Lymph # (Auto) (0.90-2.90) K/uL King # (Auto) (0.00-0.90) K/UL Eos # (Auto) (0.00-0.50) K/uL Baso # (Auto) (0.00-0.30) K/uL D-Dimer Quant (PE/DVT) 0.50 (0.00-0.50) ug/ml VBG pH (7.32-7.43) VBG pCO2 (40-50) mmHG VBG pO2 (25-47) mmHG VBG HCO3 (21-28) mmol/L Sodium 140 (135-149) mmol/L Potassium 4.5 (3.6-5.1) mmol/L Chloride 104 (96-114) mmol/L Carbon Dioxide 28 (20-32) mmol/L BUN 29 (7-30) mg/dL Creatinine 1.1 (0.5-1.5) mg/dL Estimated Creat Clear 35.65 Estimated GFR 55 ml/min Glucose 125 H (60-115) mg/dL Lactate (0.5-1.9) mmol/L Calcium 9.8 (8.4-10.6) mg/dL Total Bilirubin 0.5 (0.1-1.5) mg/dL AST 20 (12-35) U/L ALT 19 (4-35) U/L Alkaline Phosphatase 59 (40-150) U/L C-Reactive Protein 1.0 (0.5-1.0) mg/dL NT-Pro-B Natriuret Pep 263 pg/mL Total Protein 7.6 (6.0-8.3) g/dL Albumin 4.3 (3.3-5.0) g/dL SARS-CoV-2 (PCR) (Negative) Influenza Type A (PCR) (Negative) Influenza Type B (PCR) (Negative) RSV (PCR) (Negative) POC Troponin I (0.01-0.04) ng/ml 02/19/22 Range/Units 12:20 WBC (4.50-11.00) K/uL RBC (4.00-5.20) m/uL Hgb (12.0-16.0) gm/dL Hct (33.0-51.0) % MCV (80-100) fL MCH (26-34) pg MCHC (32-36) gm/dL RDW Coeff of Rick (11.5-15.5) % Plt Count (140-440) K/uL Neut % (Auto) (42.0-72.0) % Lymph % (Auto) (20-44) % King % (Auto) (0.0-11.0) % Eos % (Auto) (0.0-7.0) % Baso % (Auto) (0.0-3.0) % Neut # (Auto) (1.7-7.0) K/uL Lymph # (Auto) (0.90-2.90) K/uL King # (Auto) (0.00-0.90) K/UL Eos # (Auto) (0.00-0.50) K/uL Baso # (Auto) (0.00-0.30) K/uL D-Dimer Quant (PE/DVT) (0.00-0.50) ug/ml VBG pH 7.403 (7.32-7.43) VBG pCO2 48 (40-50) mmHG VBG pO2 41.6 (25-47) mmHG VBG HCO3 30 H (21-28) mmol/L Sodium (135-149) mmol/L Potassium (3.6-5.1) mmol/L Chloride (96-114) mmol/L Carbon Dioxide (20-32) mmol/L BUN (7-30) mg/dL Creatinine (0.5-1.5) mg/dL Estimated Creat Clear Estimated GFR ml/min Glucose (60-115) mg/dL Lactate 1.0 (0.5-1.9) mmol/L Calcium (8.4-10.6) mg/dL Total Bilirubin (0.1-1.5) mg/dL AST (12-35) U/L ALT (4-35) U/L Alkaline Phosphatase (40-150) U/L C-Reactive Protein (0.5-1.0) mg/dL NT-Pro-B Natriuret Pep pg/mL Total Protein (6.0-8.3) g/dL Albumin (3.3-5.0) g/dL SARS-CoV-2 (PCR) (Negative) Influenza Type A (PCR) (Negative) Influenza Type B (PCR) (Negative) RSV (PCR) (Negative) POC Troponin I (0.01-0.04) ng/ml Imaging Data Chest x-ray: Attestation: I have reviewed the pertinent imaging results. My impression: No acute cardiopulmonary pathology on my preliminary review. Radiologist's impression: Patient: KADE STRICKLAND Facility:?[facility] Patient ID:?[id number] Site Patient ID:?[id number]. Site :?[id number] Study:?XRay Chest PORTABLE-02/19/2022 12:50:05 PM Ordering Physician:?Nancy Astudillo Final Report: INDICATION: Shortness of breath, hypoxia TECHNIQUE: Chest radiograph 1 view COMPARISON: 12/07/2021 FINDINGS: The sensitivity and specificity of the exam are severely limited by the patient`s body habitus. Mediastinum: The mediastinum is normal in appearance. The heart silhouette is normal in size and morphology. Lung: Both lungs are unremarkable in appearance. No sign of pleural effusion seen. No pneumothorax is identified. Bone and Soft tissue: Unremarkable for age. IMPRESSION: 1. No acute cardiopulmonary disease is seen. Dictated by: Fito Borrego MD @ 02/19/2022 13:24:31 (Electronic Signature) ECG Data Attestation: I personally reviewed and interpreted this ECG as follows: (Sinus rhythm, 86 beats per minute. No acute ischemia. QT corrected 464 milliseconds.) Prior ECG tracings: not available for review Critical Care Time Critical Care Time Critical Care Time: No Discharge Plan Discharge Clinical Impression: Hypoxia, Acute exacerbation of chronic obstructive pulmonary disease Patient Disposition: Admitted As Inpatient
--- NOTE | 2022-02-19 12:01 | CRLHL7_ITS ---
For Patients: As a result of the Cures Act, medical imaging exams and procedure reports are released immediately into your electronic medical record. You may view this report before your referring provider. If you have questions, please contact your health care provider. INDICATION: Shortness of breath, hypoxia TECHNIQUE: Chest radiograph 1 view COMPARISON: 12/07/2021 FINDINGS: The sensitivity and specificity of the exam are severely limited by the patient`s body habitus. Mediastinum: The mediastinum is normal in appearance. The heart silhouette is normal in size and morphology. Lung: Both lungs are unremarkable in appearance. No sign of pleural effusion seen. No pneumothorax is identified. Bone and Soft tissue: Unremarkable for age. IMPRESSION: 1. No acute cardiopulmonary disease is seen. Dictated by: Fito Borrego MD @ 02/19/2022 13:24:31 (Electronically Signed)
[2022-02-19 12:04] LABS: PCR FLU A Negative PCR FLU A (Negative); PCR FLU B Negative PCR FLU B (Negative); PCR RSV Negative PCR RSV (Negative)
[2022-02-19 12:07] LABS: SARS PCR* Negative SARS-CoV-2 (Negative)
[2022-02-19] MEDS: IPRAT-ALBUT 0.5-2.5 MG/3 ML NEB 1 NEB IH ×3 (12:15→22:01)
--- NOTE | 2022-02-19 12:20 | ED.NURSE ---
O2 titrated down to 1L by RT.
[2022-02-19 12:27] LABS: HCO3 VBG 30 mmol/L (21-28); PCO2 VBG 48 mmHG (40-50); PO2 VBG 41.6 mmHG (25-47); pH VBG 7.403 (7.32-7.43)
[2022-02-19 12:30] LABS: Basophils Absolute Auto 0.05 K/uL (0.00-0.30); Basophils Percent Auto 0.5 % (0.0-3.0); Eosinophils Absolute Auto 0.71 K/uL (0.00-0.50); Eosinophils Percent Auto 6.9 % (0.0-7.0); Hematocrit 46.3 % (33.0-51.0); Hemoglobin* 14.8 gm/dL (12.0-16.0); Immature Granulocytes Abs Auto 0.01 K/uL (0.00-0.30); Immature Granulocytes Pct Auto 0.1 %; Lymphocytes Percent Auto 16.5 % (20-44); Mean Corpuscular HGB Conc 32 gm/dL (32-36); Mean Corpuscular Hemoglobin 29 pg (26-34); Mean Corpuscular Volume 89 fL (80-100); Monocytes Percent Auto 6.1 % (0.0-11.0); Neutrophils Absolute Auto 7.15 K/uL (1.7-7.0); Neutrophils Percent Auto 69.9 % (42.0-72.0); Platelet Count* 332 K/uL (140-440); Red Blood Count 5.18 m/uL (4.00-5.20); White Blood Count* 10.23 K/uL (4.50-11.00)
[2022-02-19 12:33] LABS: Slide Review Reflex No
--- NOTE | 2022-02-19 12:43 | RESP.RT ---
Patient arrived ED SOB, SaO2 84%, was placed on Nasal Cannula 2 Lpm, SaO2 94%. Respiratory rate 20/minute, breathing regular/shallow. Bilateral Breath sounds diminished with slight expiratory wheeze noted. DuoNeb given with small volume Nebulizer, mouthpiece, and Oxygen flow meter at 8 Lpm. Used well, post treatment, BBS increased, wheeze has increased with greater air movement. Patient able to take larger breathe. Nasal Cannula decreased to 1 Lpm, SaO2 91%.
[2022-02-19 12:44] LABS: Albumin* 4.3 g/dL (3.3-5.0); Chloride* 104 mmol/L (96-114); Sodium* 140 mmol/L (135-149)
[2022-02-19 12:45] LABS: Potassium* 4.5 mmol/L (3.6-5.1)
[2022-02-19 12:47] LABS: Carbon Dioxide* 28 mmol/L (20-32); Creatinine* 1.1 mg/dL (0.5-1.5); Est. Creatinine Clearance* 35.65; Estimated Glomerular Filt Rate 55 ml/min
[2022-02-19 12:48] LABS: Alanine Aminotransferase* 19 U/L (4-35); Alkaline Phosphatase* 59 U/L (40-150); Aspartate Amino Transferase* 20 U/L (12-35); Bilirubin Total* 0.5 mg/dL (0.1-1.5); Blood Urea Nitrogen* 29 mg/dL (7-30); Glucose* 125 mg/dL (60-115); Total Protein* 7.6 g/dL (6.0-8.3)
[2022-02-19 12:49] LABS: Calcium* 9.8 mg/dL (8.4-10.6)
[2022-02-19 12:59] LABS: NT Pro B Type NatriureticPept* 263 pg/mL
--- NOTE | 2022-02-19 13:08 | ED.NURSE ---
Titrated back up to 2L O2.
--- NOTE | 2022-02-19 14:20 | ED.NURSE ---
Report called to M/S RN.
--- NOTE | 2022-02-19 15:26 | PM.IMHP1 ---
Hospitalist- H&P: HPI History of Present Illness Time Seen by Provider: 15:20 Date Seen: 02/19/22 Chief complaint: Shortness of breath Narrative: Erika Mccoy is a 66 year old female who felt sudden onset of SOB 2-3 months ago. She saw her PCP who suspects COPD and has had her on inhalers and referred her to pulmonology, thinking she will also need home O2. Has had to cancel several appointments with [facility] due to weather, so hasn't seen that person. yet. She has been in and out of the ER in the last few months for these symptoms. She denies taking any oral steroids. In the last 4 days, she has been much more SOB and can't even walk to the bathroom 10 feet away without severe SOB. Home oxygen monitor has read low-mid 80's at rest. Review of Systems Status of ROS: Reports: 10 or more systems reviewed and unremarkable except as noted in History and below [facility] Medical History (Updated 02/19/22 @ 16:14 by Genoveva Vargas MD) Abnormal mini-mental status exam Essential hypertension (03/23/12) Hypothyroidism (03/23/12) Morbid obesity with body mass index (BMI) of 40.0 or higher Nicotine dependence (03/23/12) Osteopenia Surgical History History of tubal ligation (03/23/12) Family History (Updated 02/19/22 @ 16:07 by Genoveva Vargas MD) Son Healthy adult Daughter Healthy adult Social History (Updated 02/19/22 @ 16:08 by Genoveva Vargas MD) Narrative: Does not know family history because she was adopted. Living on the main level in a home with her daughter. Has been cutting down smoking over the past two months, now down to 1/2 ppd. Rarely drinks alcohol. Occassional use of marajuana gummies at night. No other recreational drugs. FULL CODE Smoking Status: Current every day smoker What tobacco products do you use: cigarettes Smoking packs per day: 0.5 Smoking cigarettes per day: 10.0 Do you use any of these nicotine containing products: None Second hand tobacco smoke exposure: No How often do you have a drink containing alcohol: never How often do you have six or more drinks on one occasion: Never AUDIT-C Alcohol total score: 0 Non-prescribed substance use: denies use Little interest or pleasure in doing things: not at all Feeling down, depressed, or hopeless: not at all Meds Home Medications and Allergies Home Medications Medication Instructions Recorded Confirmed Type lisinopril 20 2 tab PO HS 02/19/22 02/19/22 History mg-hydrochlorothiazide 25 mg tablet Allergies Allergy/AdvReac Type Severity Reaction Status Date / Time No Known Drug Allergies Allergy Verified 02/07/22 10:27 Exam Narrative: Exam Narrative: General: No acute distress. Awake alert oriented x3. Affect withdrawn and depressed. Fidgeting with wires during our conversation. Denies anxiety. Obese. HEENT: Normocephalic atraumatic, pupils equally round and reactive to light and accommodation. Oropharynx clear. Upper denture plate. Poor dentition on lower mouth. Mucous membranes are moist. No cervical lymphadenopathy, thyromegaly or carotid bruits. No JVD. Cardiovascular: Regular rate and rhythm. No murmurs, gallops, or rubs. Chest: No increased work of breathing. Tight, poor air movement, extra jaclyn wheezes throughout with a high-pitched musical wheeze on the right. Abdomen: Bowel sounds present. Soft, nondistended, nontender. No hepatosplenomegaly or masses. Extremities: No edema, no cyanosis or clubbing. Skin: No jaundice, no pallor, no rashes. Neuro: Grossly intact. No focal deficits. Const: Vital Signs, click to edit/add: Vital Signs - 24 hr 02/19/22 11:26 02/19/22 11:29 02/19/22 12:01 Temperature 97.1 F L Pulse Rate Pulse Rate [Left P ulse Oximeter] Pulse Rate [Pulse Oximeter] 106 H Respiratory Rate Blood Pressure Blood Pressure [Le ft Arm] Blood Pressure [Ri ght Upper Arm] 153/81 H Pulse Oximetry 84 L 94 92 Oxygen Delivery Me thod Room Air Nasal Cannula Oxygen Flow Rate 2 02/19/22 11:25 02/19/22 11:26 02/19/22 11:30 Temperature Pulse Rate 99 98 91 Pulse Rate [Left P ulse Oximeter] Pulse Rate [Pulse Oximeter] Respiratory Rate Blood Pressure 106/65 Blood Pressure [Le ft Arm] Blood Pressure [Ri ght Upper Arm] Pulse Oximetry 91 93 94 Oxygen Delivery Me thod Nasal Cannula Nasal Cannula Nasal Cannula Oxygen Flow Rate 2 2 2 02/19/22 11:31 02/19/22 11:45 02/19/22 12:00 Temperature Pulse Rate 96 88 87 Pulse Rate [Left P ulse Oximeter] Pulse Rate [Pulse Oximeter] Respiratory Rate Blood Pressure 94/66 Blood Pressure [Le ft Arm] Blood Pressure [Ri ght Upper Arm] Pulse Oximetry 94 91 91 Oxygen Delivery Me thod Nasal Cannula Nasal Cannula Nasal Cannula Oxygen Flow Rate 2 2 2 02/19/22 12:01 02/19/22 12:41 02/19/22 12:02 Temperature Pulse Rate 90 89 Pulse Rate [Left P ulse Oximeter] Pulse Rate [Pulse Oximeter] Respiratory Rate 20 Blood Pressure 105/66 Blood Pressure [Le ft Arm] Blood Pressure [Ri ght Upper Arm] Pulse Oximetry 92 94 92 Oxygen Delivery Me thod Nasal Cannula Nasal Cannula Nasal Cannula Oxygen Flow Rate 2 2 2 02/19/22 12:15 02/19/22 12:30 02/19/22 12:31 Temperature Pulse Rate 85 90 97 Pulse Rate [Left P ulse Oximeter] Pulse Rate [Pulse Oximeter] Respiratory Rate Blood Pressure 103/79 Blood Pressure [Le ft Arm] Blood Pressure [Ri ght Upper Arm] Pulse Oximetry 100 87 L 87 L Oxygen Delivery Me thod Aerosol Mask Nasal Cannula Nasal Cannula Oxygen Flow Rate 10 1 1 02/19/22 12:45 02/19/22 13:00 02/19/22 13:01 Temperature Pulse Rate 90 91 90 Pulse Rate [Left P ulse Oximeter] Pulse Rate [Pulse Oximeter] Respiratory Rate Blood Pressure 106/65 Blood Pressure [Le ft Arm] Blood Pressure [Ri ght Upper Arm] Pulse Oximetry 87 L 86 L 87 L Oxygen Delivery Me thod Nasal Cannula Nasal Cannula Nasal Cannula Oxygen Flow Rate 1 1 1 02/19/22 13:02 02/19/22 13:15 02/19/22 13:30 Temperature Pulse Rate 88 83 83 Pulse Rate [Left P ulse Oximeter] Pulse Rate [Pulse Oximeter] Respiratory Rate Blood Pressure Blood Pressure [Le ft Arm] Blood Pressure [Ri ght Upper Arm] Pulse Oximetry 87 L 91 86 L Oxygen Delivery Me thod Nasal Cannula Nasal Cannula Nasal Cannula Oxygen Flow Rate 1 2 2 02/19/22 13:31 02/19/22 13:45 02/19/22 14:00 Temperature Pulse Rate 82 89 82 Pulse Rate [Left P ulse Oximeter] Pulse Rate [Pulse Oximeter] Respiratory Rate Blood Pressure 92/58 L Blood Pressure [Le ft Arm] Blood Pressure [Ri ght Upper Arm] Pulse Oximetry 86 L 90 89 Oxygen Delivery Me thod Nasal Cannula Nasal Cannula Nasal Cannula Oxygen Flow Rate 2 2 2 02/19/22 14:01 02/19/22 14:15 02/19/22 14:30 Temperature Pulse Rate 80 87 83 Pulse Rate [Left P ulse Oximeter] Pulse Rate [Pulse Oximeter] Respiratory Rate Blood Pressure 92/61 Blood Pressure [Le ft Arm] Blood Pressure [Ri ght Upper Arm] Pulse Oximetry 89 89 90 Oxygen Delivery Me thod Nasal Cannula Nasal Cannula Nasal Cannula Oxygen Flow Rate 2 2 2 02/19/22 14:31 02/19/22 14:52 Temperature 97.2 F L Pulse Rate 85 Pulse Rate [Left P ulse Oximeter] 80 Pulse Rate [Pulse Oximeter] Respiratory Rate 20 Blood Pressure 100/70 Blood Pressure [Le ft Arm] 125/87 Blood Pressure [Ri ght Upper Arm] Pulse Oximetry 90 90 Oxygen Delivery Me thod Nasal Cannula Nasal Cannula Oxygen Flow Rate 2 2 Documenting provider has reviewed patient's vital signs: yes Hospitalist - H&P: Result Labs Labs: Short CBC 02/19/22 Range/Units 12:20 WBC 10.23 (4.50-11.00) K/uL Hgb 14.8 (12.0-16.0) gm/dL Hct 46.3 (33.0-51.0) % Plt Count 332 (140-440) K/uL BMP 02/19/22 12:20 Sodium 140 Potassium 4.5 Chloride 104 Carbon Dioxide 28 BUN 29 Creatinine 1.1 Glucose 125 H Calcium 9.8 Liver Function 02/19/22 Range/Units 12:20 Total Bilirubin 0.5 (0.1-1.5) mg/dL AST 20 (12-35) U/L ALT 19 (4-35) U/L Alkaline Phosphatase 59 (40-150) U/L Albumin 4.3 (3.3-5.0) g/dL Imaging Chest x-ray: Attestation: I have reviewed the pertinent imaging results. Radiologist's impression: Ordering Physician: Wilda Cruz M.D. Date of Service: 02/19/22 Procedure(s): XR chest 1V portable Accession Number(s): [id number] cc: Ciara Jon M.D.; Wilda Cruz M.D.~ For Patients: As a result of the Cures Act, medical imaging exams and procedure reports are released immediately into your electronic medical record. You may view this report before your referring provider. If you have questions, please contact your health care provider. INDICATION: Shortness of breath, hypoxia TECHNIQUE: Chest radiograph 1 view COMPARISON: 12/07/2021 FINDINGS: The sensitivity and specificity of the exam are severely limited by the patient`s body habitus. Mediastinum: The mediastinum is normal in appearance. The heart silhouette is normal in size and morphology. Lung: Both lungs are unremarkable in appearance. No sign of pleural effusion seen. No pneumothorax is identified. Bone and Soft tissue: Unremarkable for age. IMPRESSION: 1. No acute cardiopulmonary disease is seen. Dictated by: Fito Borrego MD @ 02/19/2022 13:24:31 (Electronically Signed) Assessment and Plan Assessment and plan (1) COPD (chronic obstructive pulmonary disease): Problem comment: not officially diagnosed, PFTs set up for 02/27/22 - 02/19/2022 acute on chronic COPD exacerbation Status: Acute Assessment and Plan: Start prednisone burst, DuoNebs scheduled, p.r.n. albuterol nebs, RT consult. I expect she will likely only need to be here 1 night. Will likely need chronic home oxygen, which we can assess tomorrow if she is doing better. (2) Essential hypertension: Problem comment: Dxed around 2009, on medication Status: Chronic Assessment and Plan: Continue home medication. (3) Hypothyroidism: Problem comment: on levothyroxine Status: Chronic Assessment and Plan: Continue home medication. (4) Nicotine dependence: Problem comment: Cutting down without nicotine replacement or other medication. I encouraged complete cessation. Status: Chronic
[2022-02-19] MEDS: predniSONE 20 MG TABLET 60 MG PO (17:12)
--- NOTE | 2022-02-19 18:26 | PC.NURSE ---
Shift [id number]- Patient is sitting in bed this afternoon. She denies pain or SOB. She remains on 2L O2 via NC.
[2022-02-19] MEDS: hydroCHLOROthiazide 25 MG TABLET 50 MG PO (20:13)
[2022-02-19] MEDS: lisinopriL 20 MG TABLET 40 MG PO (20:13)
[2022-02-19] MEDS: SODIUM CHLORIDE 0.9 % (FLUSH) 10 ML SYRINGE 5 ML IVF (20:15)
[2022-02-20 02:00] VITALS: RESP 18; O2SAT 92
[2022-02-20] MEDS: IPRAT-ALBUT 0.5-2.5 MG/3 ML NEB 1 NEB IH ×2 (03:47→10:39)
[2022-02-20 03:49] VITALS: BP 121/63; PULSE 73; RESP 20; TEMP 36.2; O2SAT 90
[2022-02-20] MEDS: LEVOTHYROXINE 75 MCG TABLET 150 MCG PO (05:37)
--- NOTE | 2022-02-20 07:38 | PC.NURSE ---
Status [id number] Pt alert and oriented. Denies pain. BP stable. Requiring 2L of supplemental oxygen overnight. Receiving scheduled duonebs. Up independently. Intermittent resting throughout night.
[2022-02-20 08:14] VITALS: BP 115/83; PULSE 80; RESP 16; TEMP 36.2; O2SAT 89
[2022-02-20] MEDS: predniSONE 20 MG TABLET 60 MG PO (09:10)
[2022-02-20] MEDS: SODIUM CHLORIDE 0.9 % (FLUSH) 10 ML SYRINGE 5 ML IVF (09:11)
[2022-02-20 10:03] VITALS: O2SAT 89
--- NOTE | 2022-02-20 10:32 | RESP.RT ---
COPD education provided. Pt not very motivated. Started aerobiks, needed a lot of encouragement. Oxygen qualification completed. Pt needs OP PFT's and follow up with pulmonology or PC. She reports she has a pulmonology appointment in [place]. She would be a candidate for pulmonary rehab.
[2022-02-20 10:35] VITALS: O2SAT 79; O2SAT 84; O2SAT 90
[2022-02-20 11:12] VITALS: BP 105/76; PULSE 93; RESP 16; TEMP 36.9; O2SAT 90
--- NOTE | 2022-02-20 11:58 | PM.DS1 ---
DS: Providers Provider Time Seen by Provider: 09:45 Date Seen: 02/20/22 Date of admission: 02/19/22 14:21 Primary care physician: Ciara Jon MD Admitting Clinician: Genoveva Vargas MD Consults: 02/19/22 15:59 Consult to Respiratory Therapy [CONS] Routine Comment: Reason(s) for RT Consult:: New COPD/Asthma Diag Attending Physician on discharge: Genoveva Vargas MD Date of Discharge: 02/20/22 DS: Diagnosis Discharge Diagnosis (1) Hypoxia: Status: Acute (2) Acute exacerbation of chronic obstructive pulmonary disease: Status: Acute (3) Essential hypertension: Status: Chronic Problem details: Dxed around 2009, on medication (4) Hypothyroidism: Status: Chronic Problem details: on levothyroxine (5) Nicotine dependence: Status: Chronic Problem details: Cutting down without nicotine replacement or other medication. I encouraged complete cessation. (6) COPD (chronic obstructive pulmonary disease): Status: Acute Problem details: PFTs set up for 02/27/22 - 02/19/2022 acute on chronic COPD exacerbation, treated with prednisone, nebs, oxygen DS: Summary Hospital Course Hospital Course: This is a 66-year-old female with history of COPD who has been getting more short of breath at rest and with exertion over the last few months. In the last few days she has become so short of breath that she cannot walk 10 ft get to the bathroom. She was hypoxic upon presentation. Chest x-ray was unremarkable. She was admitted for observation, started on steroids, oxygen, nebulizers. She did well overnight and has improved enough for discharge home today. I will keep her on a short burst of high-dose prednisone for home going, have done a home oxygen evaluation, and determined that she needs 3 L per minute via nasal cannula continuously and I will have her follow-up with her primary care provider as well as keep her scheduled appointment for PFTs on 02/27/2022. I have asked her to abstain from smoking while on oxygen and quit altogether if possible. I offered help with this and she wished to try nicotine patches. Time spent discussing smoking cessation with patient: 3 to 10 minutes Time Spent with Patient Time attestation: Total time spent providing and/or coordinating discharge services: Exam Narrative: Exam Narrative: General: No acute distress. Awake alert oriented x3. Cardiovascular: Regular rate and rhythm. No murmurs, gallops, or rubs. Chest: No increased work of breathing. Tight, air movement better than yesterday, expiratory wheezes have resolved on the left, improving on the right. Abdomen: Bowel sounds present. Soft, nondistended, nontender. No hepatosplenomegaly or masses. Const: Vital Signs, click to edit/add: Vital Signs - 24 hr 02/19/22 12:01 02/19/22 12:00 02/19/22 12:01 Temperature Pulse Rate 87 90 Pulse Rate [Left P ulse Oximeter] Respiratory Rate Blood Pressure 105/66 Blood Pressure [Le ft Arm] Blood Pressure [Ri ght Arm] Pulse Oximetry 92 91 92 Oxygen Delivery Me thod Nasal Cannula Nasal Cannula Oxygen Flow Rate 2 2 02/19/22 12:41 02/19/22 12:02 02/19/22 12:15 Temperature Pulse Rate 89 85 Pulse Rate [Left P ulse Oximeter] Respiratory Rate 20 Blood Pressure Blood Pressure [Le ft Arm] Blood Pressure [Ri ght Arm] Pulse Oximetry 94 92 100 Oxygen Delivery Me thod Nasal Cannula Nasal Cannula Aerosol Mask Oxygen Flow Rate 2 2 10 02/19/22 12:30 02/19/22 12:31 02/19/22 12:45 Temperature Pulse Rate 90 97 90 Pulse Rate [Left P ulse Oximeter] Respiratory Rate Blood Pressure 103/79 Blood Pressure [Le ft Arm] Blood Pressure [Ri ght Arm] Pulse Oximetry 87 L 87 L 87 L Oxygen Delivery Me thod Nasal Cannula Nasal Cannula Nasal Cannula Oxygen Flow Rate 1 1 1 02/19/22 13:00 02/19/22 13:01 02/19/22 13:02 Temperature Pulse Rate 91 90 88 Pulse Rate [Left P ulse Oximeter] Respiratory Rate Blood Pressure 106/65 Blood Pressure [Le ft Arm] Blood Pressure [Ri ght Arm] Pulse Oximetry 86 L 87 L 87 L Oxygen Delivery Me thod Nasal Cannula Nasal Cannula Nasal Cannula Oxygen Flow Rate 1 1 1 02/19/22 13:15 02/19/22 13:30 02/19/22 13:31 Temperature Pulse Rate 83 83 82 Pulse Rate [Left P ulse Oximeter] Respiratory Rate Blood Pressure 92/58 L Blood Pressure [Le ft Arm] Blood Pressure [Ri ght Arm] Pulse Oximetry 91 86 L 86 L Oxygen Delivery Me thod Nasal Cannula Nasal Cannula Nasal Cannula Oxygen Flow Rate 2 2 2 02/19/22 13:45 02/19/22 14:00 02/19/22 14:01 Temperature Pulse Rate 89 82 80 Pulse Rate [Left P ulse Oximeter] Respiratory Rate Blood Pressure 92/61 Blood Pressure [Le ft Arm] Blood Pressure [Ri ght Arm] Pulse Oximetry 90 89 89 Oxygen Delivery Me thod Nasal Cannula Nasal Cannula Nasal Cannula Oxygen Flow Rate 2 2 2 02/19/22 14:15 02/19/22 14:30 02/19/22 14:31 Temperature Pulse Rate 87 83 85 Pulse Rate [Left P ulse Oximeter] Respiratory Rate Blood Pressure 100/70 Blood Pressure [Le ft Arm] Blood Pressure [Ri ght Arm] Pulse Oximetry 89 90 90 Oxygen Delivery Me thod Nasal Cannula Nasal Cannula Nasal Cannula Oxygen Flow Rate 2 2 2 02/19/22 14:52 02/19/22 17:15 02/19/22 20:13 Temperature 97.2 F L 98.4 F Pulse Rate Pulse Rate [Left P ulse Oximeter] 80 76 Respiratory Rate 20 20 Blood Pressure Blood Pressure [Le ft Arm] 125/87 Blood Pressure [Ri ght Arm] 124/63 Pulse Oximetry 90 91 91 Oxygen Delivery Me thod Nasal Cannula Nasal Cannula Nasal Cannula Oxygen Flow Rate 2 2 2 02/20/22 02:00 02/19/22 23:00 02/19/22 23:00 Temperature Pulse Rate Pulse Rate [Left P ulse Oximeter] 76 Respiratory Rate 18 18 18 Blood Pressure Blood Pressure [Le ft Arm] Blood Pressure [Ri ght Arm] Pulse Oximetry 92 92 Oxygen Delivery Me thod Nasal Cannula Nasal Cannula Oxygen Flow Rate 2 2 02/20/22 03:49 02/20/22 08:14 02/20/22 10:03 Temperature 97.2 F L 97.2 F L Pulse Rate Pulse Rate [Left P ulse Oximeter] 73 80 Respiratory Rate 20 16 Blood Pressure Blood Pressure [Le ft Arm] Blood Pressure [Ri ght Arm] 121/63 115/83 Pulse Oximetry 90 89 89 Oxygen Delivery Me thod Nasal Cannula Nasal Cannula Nasal Cannula Oxygen Flow Rate 2 1 2 02/20/22 11:12 Temperature 98.4 F Pulse Rate Pulse Rate [Left P ulse Oximeter] 93 Respiratory Rate 16 Blood Pressure Blood Pressure [Le ft Arm] Blood Pressure [Ri ght Arm] 105/76 Pulse Oximetry 90 Oxygen Delivery Me thod Nasal Cannula Oxygen Flow Rate 3 Documenting provider has reviewed patient's vital signs: yes DS: Data Data Completed and Pending Completed studies during hospitalization: Ordering Physician: Wilda Cruz M.D. Date of Service: 02/19/22 Procedure(s): XR chest 1V portable Accession Number(s): [id number] cc: Ciara Jon M.D.; Wilda Cruz M.D.~ For Patients: As a result of the Century Cures Act, medical imaging exams and procedure reports are released immediately into your electronic medical record. You may view this report before your referring provider. If you have questions, please contact your health care provider. INDICATION: Shortness of breath, hypoxia TECHNIQUE: Chest radiograph 1 view COMPARISON: 12/07/2021 FINDINGS: The sensitivity and specificity of the exam are severely limited by the patient`s body habitus. Mediastinum: The mediastinum is normal in appearance. The heart silhouette is normal in size and morphology. Lung: Both lungs are unremarkable in appearance. No sign of pleural effusion seen. No pneumothorax is identified. Bone and Soft tissue: Unremarkable for age. IMPRESSION: 1. No acute cardiopulmonary disease is seen. Dictated by: Fito Borrego MD @ 02/19/2022 13:24:31 (Electronically Signed) Labs on day of discharge: Labs from last 24 hours 02/19/22 02/19/22 02/19/22 12:20 12:20 12:20 WBC RBC Hgb Hct MCV MCH MCHC RDW Coeff of Rick Plt Count Neut % (Auto) Lymph % (Auto) [place] % (Auto) Eos % (Auto) Baso % (Auto) Neut # (Auto) Lymph # (Auto) [place] # (Auto) Eos # (Auto) Baso # (Auto) D-Dimer Quant (PE/DVT) 0.50 VBG pH 7.403 VBG pCO2 48 VBG pO2 41.6 VBG HCO3 30 H Sodium Potassium Chloride Carbon Dioxide BUN Creatinine Estimated Creat Clear Estimated GFR Glucose Lactate 1.0 Calcium Total Bilirubin AST ALT Alkaline Phosphatase C-Reactive Protein NT-Pro-B Natriuret Pep 263 Total Protein Albumin SARS-CoV-2 (PCR) Influenza Type A (PCR) Influenza Type B (PCR) RSV (PCR) POC Troponin I 02/19/22 02/19/22 02/19/22 12:20 12:20 12:02 WBC 10.23 RBC 5.18 Hgb 14.8 Hct 46.3 MCV 89 MCH 29 MCHC 32 RDW Coeff of Rick 16.0 H Plt Count 332 Neut % (Auto) 69.9 Lymph % (Auto) 16.5 L [place] % (Auto) 6.1 Eos % (Auto) 6.9 Baso % (Auto) 0.5 Neut # (Auto) 7.15 H Lymph # (Auto) 1.70 [place] # (Auto) 0.60 Eos # (Auto) 0.71 H Baso # (Auto) 0.05 D-Dimer Quant (PE/DVT) VBG pH VBG pCO2 VBG pO2 VBG HCO3 Sodium 140 Potassium 4.5 Chloride 104 Carbon Dioxide 28 BUN 29 Creatinine 1.1 Estimated Creat Clear 35.65 Estimated GFR 55 Glucose 125 H Lactate Calcium 9.8 Total Bilirubin 0.5 AST 20 ALT 19 Alkaline Phosphatase 59 C-Reactive Protein 1.0 NT-Pro-B Natriuret Pep Total Protein 7.6 Albumin 4.3 SARS-CoV-2 (PCR) Influenza Type A (PCR) Influenza Type B (PCR) RSV (PCR) POC Troponin I 0.00 L 02/19/22 11:20 WBC RBC Hgb Hct MCV MCH MCHC RDW Coeff of Rick Plt Count Neut % (Auto) Lymph % (Auto) [place] % (Auto) Eos % (Auto) Baso % (Auto) Neut # (Auto) Lymph # (Auto) [place] # (Auto) Eos # (Auto) Baso # (Auto) D-Dimer Quant (PE/DVT) VBG pH VBG pCO2 VBG pO2 VBG HCO3 Sodium Potassium Chloride Carbon Dioxide BUN Creatinine Estimated Creat Clear Estimated GFR Glucose Lactate Calcium Total Bilirubin AST ALT Alkaline Phosphatase C-Reactive Protein NT-Pro-B Natriuret Pep Total Protein Albumin SARS-CoV-2 (PCR) Negative SARS-CoV-2 Influenza Type A (PCR) Negative PCR FLU A Influenza Type B (PCR) Negative PCR FLU B RSV (PCR) Negative PCR RSV POC Troponin I Discharge Plan Discharge Disposition: Home, Self-Care Date of Admission: 02/19/22 14:21 Attending Provider on Discharge: Genoveva Vargas Primary Care Provider: Ciara Jon Condition: Improved Anticipated Discharge Date/Time: 02/20/22 12:05 Discharge Medications: New ipratropium-albuterol 0.5 mg-3 mg(2.5 mg base)/3 mL Solution For Nebulization 3 ml inhalation QID PRNQty: 90 0RF prednisone 20 mg Tablet 60 mg PO DAILYWM 3 Days Qty: 9 0RF Continued albuterol sulfate [Proventil HFA] 90 mcg/actuation HFA aerosol inhaler 2 - 4 puff inhalation Q2-4H PRN (Reason: shortness of breath or wheezing) Qty: 8.5 11RF albuterol sulfate 2.5 mg /3 mL (0.083 %) solution for nebulization 2.5 mg inhalation Q6H PRN (Reason: bronchospasm) Qty: 75 5RF fluticasone propion-salmeterol [Advair Diskus] 250-50 mcg/dose blister with device 1 inh inhalation BID Qty: 60 11RF levothyroxine 150 mcg tablet 150 mcg PO DAILY Qty: 90 3RF lisinopril-hydrochlorothiazide 20-25 mg tablet 2 tab PO HS Discharge Orders: Discharge Order (Routine); Ordered 02/20/22 Ordered By: Genoveva Vargas Patient Education: COPD (Chronic Obstructive Pulmonary Disease) (DC) Additional Instructions: Home oxygen via NC 3LPM continuous. Activity Level: No Restrictions Discharge Diet: Regular Follow Up Appointments: Ciara Jon MD [Primary Care Provider] - (early next week) Forms: [employer] Info Instructions
--- NOTE | 2022-02-20 12:09 | W.PM.HOT ---
Acute Home Oxygen Therapy Acute Home Oxygen Therapy Diagnosis for Oxygen Therapy (1) COPD (chronic obstructive pulmonary disease): Comment: PFTs set up for 02/27/22 - 02/19/2022 acute on chronic COPD exacerbation, treated with prednisone, nebs, oxygen Code(s): J44.9 - Chronic obstructive pulmonary disease, unspecified Provider Note Provider Note: Patient was admitted on 02/19/22 at 14:21 and will be discharging on 02/20/2022 Patient is desaturating with SATs of 84% on room air at rest and 79% with activity due to COPD. Alternative therapies have been attempted and have not been successful in maintaining the patient's saturation level above 88%. Supplemental O2 is required. This patient is mobile within the home and requires portability.
--- NOTE | 2022-02-20 13:42 | PC.NURSE ---
Patient was discharged home with daughter. PIV taken out and catheter intact. Vital signs within normal limits. Oxygen saturation has been 90-92% on 3L. Home O2 was set up with respiratory. Was sent out on one of our home O2 concentrators. Has follow up appointment with Dr Jon on Friday and Pulmonology a week from today. Prescriptions were sent into pharmacy including nicotine patches to refrain from smoking especially since she has oxygen now. Tolerating a regular diet. Voiding without difficulty. Passing flatus. Denies pain. Ambulates independently in room. All questions answered and left via wheelchair escort.
== END 2022-02-20 14:00 | disposition home or self-care (01) ==
LOC: ED 12:29 → MEDSURG 14:21
PROVIDERS: Admitting Provider Family Medicine; Emergency Provider Family Medicine; PCP Internal Medicine; Visit Provider Family Medicine
DX: J44.9 Chronic obstructive pulmonary disease, unspecified (principal); R09.02 Hypoxemia; I10 Essential (primary) hypertension; I49.8 Other specified cardiac arrhythmias; E03.9 Hypothyroidism, unspecified; F17.210 Nicotine dependence, cigarettes, uncomplicated; R06.02 Shortness of breath; Z98.51 Tubal ligation status
CPT/HCPCS: 36415; 71045; 80053; 82803; 83605; 83880; 84484; 85025; 85379; 86140; 87502; 87634; 87635; 93005; 94640; 94664; 94761; 99284; 99285; A9270; G0378; G0379; J7512

== ENCOUNTER 2022-08-11 11:21 | Emergency (ER) | payer MEDICARE, SELFPAY ==
[2022-08-11 11:27] VITALS: BP 149/70; PULSE 105; RESP 20; O2SAT 92; BMI 43.0
--- NOTE | 2022-08-11 11:38 | CRLHL7_ITS ---
For Patients: As a result of the Century Cures Act, medical imaging exams and procedure reports are released immediately into your electronic medical record. You may view this report before your referring provider. If you have questions, please contact your health care provider. Indication: Injury Comparison: None available. Technique: AP, Lateral, and Oblique views left ankle were obtained Findings: There is an oblique lucency through the distal fibula seen best on the lateral projection which may represent sequela of prior trauma. The ankle mortise is symmetrical. The talar dome is smooth and intact. The joint spaces are otherwise grossly preserved. There is marked malleolar soft tissue swelling. Impression: Marked malleolar soft tissue swelling with demonstration of oblique lucency on the lateral projection to the fibula which may represent sequela of prior trauma. No evidence of acute appearing displaced fracture. Dictated by Ziyad Yanes MD @ 08/11/2022 1:29:01 PM (Electronically Signed)
--- NOTE | 2022-08-11 11:38 | CRLHL7_ITS ---
For Patients: As a result of the Cures Act, medical imaging exams and procedure reports are released immediately into your electronic medical record. You may view this report before your referring provider. If you have questions, please contact your health care provider. Indication: Injury and pain Technique: Left foot 3 views. Comparison: None Findings: Mild degenerative changes and bunion. No acute fracture or dislocation. Impression: No sign of acute injury. Dictated by Mark August MD @ 08/11/2022 1:24:43 PM (Electronically Signed)
--- NOTE | 2022-08-11 11:43 | ED_ITS ---
HPI - General Adult General Time Seen by Provider: 11:43 Date Seen: 08/11/22 Chief complaint: Extremity Pain/Injury, Lower Stated complaint: L foot injury Time Seen by Provider: 08/11/22 11:30 Source: patient Mode of arrival: wheelchair History of Present Illness HPI narrative: Patient is a 59 year white female tripped in her yd and sprained her ankle on the left yesterday. Has pain in her lateral ankle on the left. She reports she had some pain higher than her ankle laterally but that is improved somewhat. She has been able to walk with a gel cast on. Notices a little bit of swelling over the lateral aspect of the ankle. Patient denies any proximal leg tenderness, denies any open wounds. She has had a history of severe COPD and elevated BMI and osteopenia. Related Data Home Medications Medication Instructions Recorded Confirmed lisinopril 20 2 tab PO HS 02/19/22 03/07/22 mg-hydrochlorothiazide 25 mg tablet Previous Rx's Medication Instructions Recorded levothyroxine 150 mcg tablet 150 mcg PO DAILY #90 tabs 11/20/21 albuterol sulfate 2.5 mg/3 mL 2.5 mg (3 mL) inhalation Q6H PRN 02/07/22 (0.083 %) solution for nebulization bronchospasm #75 mL albuterol sulfate 90 mcg/actuation 2 - 4 puff inhalation Q2-4H PRN 02/07/22 aerosol inhaler (Proventil HFA) shortness of breath or wheezing #8.5 grams fluticasone 250 mcg-salmeterol 50 1 inh inhalation BID #60 ea 02/07/22 mcg/dose blistr powdr for inhalation (Advair Diskus) nicotine 14 mg/24 hr daily 1 patch transdermal DAILY #14 ea 02/20/22 transdermal patch prednisone 20 mg tablet 10 - 40 mg (0.5 - 2 x 20 mg) PO 03/07/22 DAILY #36 tabs ipratropium 0.5 mg-albuterol 3 mg 3 ml inhalation QID PRN for 07/31/22 (2.5 mg base)/3 mL nebulization dyspnea #360 mL soln Allergies Allergy/AdvReac Type Severity Reaction Status Date / Time No Known Drug Allergies Allergy Verified 03/07/22 14:36 Review of Systems Status of ROS: Reports: 6 or more systems reviewed and unremarkable except as noted in History and below [facility] Medical History COPD (chronic obstructive pulmonary disease) ?J44.9 - Chronic obstructive pulmonary disease, unspecified (ICD-10) Nicotine dependence (03/23/12) ?F17.200 - Nicotine dependence, unspecified, uncomplicated (ICD-10) Hypothyroidism (03/23/12) ?E03.9 - Hypothyroidism, unspecified (ICD-10) Essential hypertension (03/23/12) ?I10 - Essential (primary) hypertension (ICD-10) Surgical History History of tubal ligation (03/23/12) ?Z98.51 - Tubal ligation status (ICD-10) Family History Son Healthy adult Daughter Healthy adult Social History Narrative: Does not know family history because she was adopted. Living on the main level in a home with her daughter. Has been cutting down smoking over the past two months, now down to 1/2 ppd. Rarely drinks alcohol. Occassional use of marajuana gummies at night. No other recreational drugs. FULL CODE Smoking Status: Current every day smoker What tobacco products do you use: cigarettes Smoking packs per day: 0.5 Smoking cigarettes per day: 10.0 Years smoked: 50 Smoking pack-years: 25.00 Do you use any of these nicotine containing products: None Second hand tobacco smoke exposure: Yes How often do you have a drink containing alcohol: never How often do you have six or more drinks on one occasion: Never AUDIT-C Alcohol total score: 0 Non-prescribed substance use: marijuana (any form) Little interest or pleasure in doing things: not at all Feeling down, depressed, or hopeless: not at all service: No Exam Narrative: Exam Narrative: Objective: Patient is alert or x3, no marked distress Vital signs are unremarkable and slightly elevated systolic pressure and pulse Left lower extremity shows no proximal fibular tenderness no bruising or ecchymoses Achilles is intact with plantar flexion with calf compression Mild tenderness over her lateral leg no bruising or ecchymosis noted no proximal 5th meta tarsal tenderness She is tender over lateral anterior talofibular ligament area, no open wounds, no marked swelling or ecchymoses, distal CMS intact Const: Vital Signs, click to edit/add: Vital Signs - 24 hr 08/11/22 11:27 Pulse Rate [Pulse Oximeter] 105 H Respiratory Rate 20 Blood Pressure [Ri ght Forearm] 149/70 H Pulse Oximetry 92 Oxygen Delivery Me thod Room Air Course Vital Signs Vital signs: Initial Vital Signs Temperature Source Temporal Artery Scan 08/11/22 11:27 Pulse Rate 105 H 08/11/22 11:27 Pulse Rhythm Regular 08/11/22 11:27 Respiratory Rate 20 08/11/22 11:27 Blood Pressure 149/70 H 08/11/22 11:27 Blood Pressure Mean 96 08/11/22 11:27 Blood Pressure Position Sitting 08/11/22 11:27 Pulse Oximetry 92 08/11/22 11:27 Oxygen Delivery Method Room Air 08/11/22 11:27 Vital Signs Pulse Rate 105 H 08/11/22 11:27 Respiratory Rate 20 08/11/22 11:27 Blood Pressure 149/70 H 08/11/22 11:27 Pulse Oximetry 92 08/11/22 11:27 Oxygen Delivery Method Room Air 08/11/22 11:27 Pulse Rate 105 H 08/11/22 11:27 Respiratory Rate 20 08/11/22 11:27 Blood Pressure 149/70 H 08/11/22 11:27 Pulse Oximetry 92 08/11/22 11:27 Oxygen Delivery Method Room Air 08/11/22 11:27 Medical Decision Making MDM Narrative Medical decision making narrative: [age] year white female with history of left ankle sprain inversion type. Rule out fracture. Patient has been walking adequately with a gel splint. Will check a x-ray if this is negative then gel splint elevation limited weight- bearing icing anti-inflammatory as needed such as ibuprofen. Recommend follow- up with primary care in 2-3 days certainly sooner change concerns worsening return to ED. again would limit weight-bearing Addendum: 12 noon: The patient has no evidence on x-ray by my read of significant fracture in the foot or ankle. Will review radiology read when returns, recommend gel splint, limited weight-bearing, ibuprofen as needed Tylenol as needed, icing on aggressive basis preps 5-10 minutes 5 times a day for the next several days. Follow up with primary care in the next 2-3 days : return to ED sooner problems or concerns. Discharge Plan Discharge Clinical Impression: Left ankle sprain Patient Disposition: Home w/ Parent or Adult Condition: Stable Additional Instructions: Limit weight-bearing, recheck with primary care in 2-3 days. air splint. Ice 5-10 minutes to the ankle area 5 times a day for the next 3 days. May use some ibuprofen as needed for swelling and discomfort. May also use Tylenol. Return if problems or concerns Activity Level: Light activity Discharge Diet: Heart Healthy (2 gm sodium, low fat) Prescriptions: No Action albuterol sulfate [Proventil HFA] 90 mcg/actuation HFA aerosol inhaler 2 - 4 puff inhalation Q2-4H PRN (Reason: shortness of breath or wheezing) Qty: 8.5 11RF albuterol sulfate 2.5 mg /3 mL (0.083 %) solution for nebulization 2.5 mg inhalation Q6H PRN (Reason: bronchospasm) Qty: 75 5RF fluticasone propion-salmeterol [Advair Diskus] 250-50 mcg/dose blister with device 1 inh inhalation BID Qty: 60 11RF prednisone 20 mg tablet 10 - 40 mg PO DAILY Qty: 36 4RF Rx Instructions: 40 MG PO DAILY FOR 5 DAYS, THEN 20 MG PO DAILY FOR 5 DAYS, THEN 10 MG PO DAILY FOR 5 DAYS. levothyroxine 150 mcg tablet 150 mcg PO DAILY Qty: 90 3RF lisinopril-hydrochlorothiazide 20-25 mg tablet 2 tab PO HS nicotine 14 mg/24 hr patch 24 hour 1 patch transdermal DAILY Qty: 14 0RF ipratropium-albuterol 0.5 mg-3 mg(2.5 mg base)/3 mL solution for nebulization 3 ml inhalation QID PRN (Reason: for dyspnea) Qty: 360 5RF Rx Instructions: 3 mL inhaled four times daily PRN Follow Up/Referrals: Ciara Jon MD [Primary Care Provider] - Stand Alone Forms: [facility] Info Instructions
== END 2022-08-11 12:37 | disposition home or self-care (01) ==
LOC: ED 12:00
PROVIDERS: Emergency Provider Family Medicine; PCP Internal Medicine
DX: S93.402A Sprain of unspecified ligament of left ankle, initial encounter (principal); W01.0XXA Fall on same level from slipping, tripping and stumbling without subsequent striking against object, initial encounter
CPT/HCPCS: 29515; 73610; 73630; 99283; 99284

== ENCOUNTER 2022-12-15 14:05 | Inpatient (IN) | payer MEDICARE, SELFPAY ==
[2022-12-15] VITALS (44 sets, daily range): BP systolic 67–141; BP diastolic 34–108; PULSE 90–125; RESP 20–24; TEMP 35.8–37.3; O2SAT 87–98; BMI 39.1; BMI 46.7
--- NOTE | 2022-12-15 14:34 | CRLHL7_ITS ---
For Patients: As a result of the Century Cures Act, medical imaging exams and procedure reports are released immediately into your electronic medical record. You may view this report before your referring provider. If you have questions, please contact your health care provider. INDICATION: TROUBLE BREATHING HISTORY: Difficulty in breathing. COMPARISON: 02/19/2022. TECHNIQUE: Chest, 2 views. FINDINGS: Extensive right upper lobe pulmonary opacities, new from 02/19/2022. Heart size and pulmonary vasculature are within normal limits. Subtle interstitial type opacities in the left lung are also new. No sizable pleural effusion. Central airway is normal. Degenerative disc disease throughout the thoracic spine. IMPRESSION: 1. Asymmetric, mixed interstitial/alveolar opacities, most confluent in the right upper lobe. 2. Pneumonia is suspected. Imaging followup is advised to document resolution. Dictated by Wu Mcguire MD @ 12/15/2022 3:06:47 PM Dictated by: Wu Mcguire MD @ 12/15/2022 15:06:55 (Electronically Signed)
[2022-12-15 14:46] LABS: Basophils Percent Auto 0.1 % (0.0-3.0); Hematocrit 40.3 % (33.0-51.0); Immature Granulocytes Pct Auto 0.9 %; Lymphocytes Percent Auto 4.8 % (20-44); Mean Corpuscular HGB Conc 32 gm/dL (32-36); Mean Corpuscular Hemoglobin 28 pg (26-34); Mean Corpuscular Volume 87 fL (80-100); Monocytes Percent Auto 4.9 % (0.0-11.0); Neutrophils Percent Auto 89.3 % (42.0-72.0); Platelet Count* 435 K/uL (140-440); RDW Coefficient of Variation % 15.2 % (11.5-15.5); Red Blood Count 4.64 m/uL (4.00-5.20)
[2022-12-15 15:01] LABS: Albumin* 3.3 g/dL (3.3-5.0); Chloride* 99 mmol/L (96-114); Potassium* 3.7 mmol/L (3.6-5.1); Slide Review Reflex Yes; Sodium* 133 mmol/L (135-149); White Blood Count* 28.38 K/uL (4.50-11.00)
[2022-12-15 15:03] LABS: Bilirubin Total* 0.8 mg/dL (0.1-1.5); Creatinine* 1.5 mg/dL (0.5-1.5); Est. Creatinine Clearance* 25.78; Estimated Glomerular Filt Rate 38 ml/min
[2022-12-15 15:04] LABS: Alanine Aminotransferase* 45 U/L (4-35); Alkaline Phosphatase* 96 U/L (40-150); Anion Gap 8 mEq/L (7-15); Aspartate Amino Transferase* 47 U/L (12-35); Blood Urea Nitrogen* 39 mg/dL (7-30); Calcium* 9.4 mg/dL (8.4-10.6); Carbon Dioxide* 26 mmol/L (20-32); Glucose* 136 mg/dL (60-115); Magnesium* 1.7 mg/dL (1.5-2.6); Total Protein* 6.9 g/dL (6.0-8.3)
[2022-12-15] MEDS: ALBUTEROL SULFATE 2.5 MG/3 ML VIAL.NEB 5 MG NEB (15:10)
[2022-12-15 15:16] LABS: Troponin I* 0.02 ng/mL (0.01-0.04)
[2022-12-15 15:17] LABS: NT Pro B Type NatriureticPept* 2280 pg/mL
[2022-12-15 15:23] LABS: PCR FLU A Negative PCR FLU A (Negative); PCR FLU B Negative PCR FLU B (Negative)
[2022-12-15 15:25] LABS: SARS PCR* Negative SARS-CoV-2 (Negative)
[2022-12-15 15:35] LABS: D Dimer Quantitative* 5.55 ug/ml (0.00-0.50)
[2022-12-15] MEDS: cefTRIAXone 1 GM in 0.9 % SODIUM CHLORIDE Mini-bag 100 ML IVPB (15:36)
[2022-12-15] MEDS: AZITHROMYCIN 500 MG in 0.9 % SODIUM CHLORIDE 250 ml 250 ML 255 MG IVPB (15:37)
[2022-12-15 15:50] LABS: Slide Review Acceptable Review (Acceptable)
--- NOTE | 2022-12-15 16:11 | CRLHL7_ITS ---
For Patients: As a result of the Century Cures Act, medical imaging exams and procedure reports are released immediately into your electronic medical record. You may view this report before your referring provider. If you have questions, please contact your health care provider. INDICATION: Shortness of breath TECHNIQUE: CT chest pulmonary angiogram acquired with IV contrast. 95 mL Isovue 370 COMPARISON: None FINDINGS: Cardiovascular structures/mediastinum: Normal caliber thoracic aorta. Main pulmonary artery appears enlarged which be seen with pulmonary arterial hypertension. Heart size normal. Pulmonary emboli in the distal left main pulmonary artery ,left lower lobe lobar pulmonary arteries. Left upper lobe and right lower lobe lobar pulmonary arteries. No findings for right heart strain. Lungs: Right upper lobe bulla. There is patchy dense consolidation in the right upper lobe. There is fullness in the right hilum which may represent mass or adenopathy. 1.3 x 1.7 centimeter bilobed nodule left upper lobe 5/65. 7 millimeter nodule left lower lobe on 06/10 25. Pleura and pericardium: No effusions. Chest wall and axilla: No mass or adenopathy. Bones: Left lateral subacute or older rib fracture. Upper abdomen: Unremarkable. IMPRESSION: 1. Pulmonary emboli in the left distal main pulmonary artery, left upper left lower lobe right lower lobe lobar pulmonary arteries. No findings for right heart strain. 2. Right upper lobe patchy consolidation. Right hilar soft tissue fullness may be related to adenopathy or possible mass. Irregular left upper lobe 1.3 x 1.7 centimeter bilobed nodule. 7 millimeter left lower lobe nodules. Findings could represent infectious etiologies however findings are worrisome for malignancy. Pulmonary consultation recommended. Results called to Dr. Alfaro on 12/15/22 at 5:50pm. Please note that all CT scans at this facility use dose modulation, iterative reconstruction, and/or weight-based dosing when appropriate to reduce radiation dose to as low as reasonably achievable. Dictated by Alysia Hartmann MD @ 12/15/2022 5:53:44 PM (Electronically Signed)
[2022-12-15 16:25] LABS: Appearance Urine Clear (Clear); Bilirubin Urine 2+ (Negative); Blood Urine Trace-intact (Negative); Color Urine Dark yellow (Yellow); Glucose Urine Negative (Negative); Ketones Urine 1+ (Negative); Leukocyte Esterase Urine Negative (Negative); Nitrite Urine Positive (Negative); Protein Urine 3+ (Negative); Specific Gravity Urine >= 1.030 (1.000-1.030); pH Urine 5.5 (5.0-8.5)
[2022-12-15 16:55] LABS: Bacteria Urine Moderate; Squamous Epithelial Cell Urine Few (None-Few)
--- NOTE | 2022-12-15 18:07 | ED.SOB ---
HPI - SOB/Dyspnea General Date Seen: 12/15/22 Chief Complaint: Shortness of Breath/Dyspnea Stated Complaint: Trouble breathing Time Seen by Provider: 12/15/22 14:25 Source: patient and family Mode of arrival: ambulatory Limitations: no limitations History of Present Illness HPI Narrative: Patient is a 67-year-old female presenting to the emergency department for shortness of breath. She does have been a chronic issue but they have been green worth of the past few days. She is here with her daughter. She states now after a few steps she gets very short of breath and has a normal for her. She has been using her inhalers at home without improvement in her symptoms. Denies fevers, chills, weakness, numbness, headache, vision changes. Related Data Previous Rx's Medication Instructions Recorded levothyroxine 150 mcg tablet 150 mcg PO DAILY #90 tabs 11/20/21 albuterol sulfate 2.5 mg/3 mL 2.5 mg (3 mL) inhalation Q6H PRN 02/07/22 (0.083 %) solution for nebulization bronchospasm #75 mL albuterol sulfate 90 mcg/actuation 2 - 4 puff inhalation Q2-4H PRN 02/07/22 aerosol inhaler (Proventil HFA) shortness of breath or wheezing #8.5 grams ipratropium 0.5 mg-albuterol 3 mg 3 ml inhalation QID PRN for 07/31/22 (2.5 mg base)/3 mL nebulization dyspnea #360 mL soln fluticasone 250 mcg-salmeterol 50 1 inh inhalation BID #60 ea 11/21/22 mcg/dose blistr powdr for inhalation (Advair Diskus) lisinopril 20 2 tab PO HS #180 tabs 11/21/22 mg-hydrochlorothiazide 25 mg tablet prednisone 20 mg tablet 40 mg (2 x 20 mg) PO DIRECTED 11/21/22 #36 tabs tiotropium bromide 18 mcg capsule 1 cap inhalation QDAY #90 11/21/22 with inhalation device (Spiriva inhalations with HandiHaler) Allergies Allergy/AdvReac Type Severity Reaction Status Date / Time No Known Drug Allergies Allergy Verified 12/15/22 17:13 PFSH PFS Surgical History History of tubal ligation (03/23/12) ?Z98.51 - Tubal ligation status (ICD-10) Family History Son Healthy adult Daughter Healthy adult Social History (Updated 11/21/22 @ 15:50 by Eloise Foy ~ [facility]) Narrative: Does not know family history because she was adopted. Living on the main level in a home with her daughter. Has been cutting down smoking over the past two months, now down to 1/2 ppd. Rarely drinks alcohol. Occassional use of marajuana gummies at night. No other recreational drugs. FULL CODE What is your current living situation?: I presently have a place to live Problems where you live: no known problems In the past 12 months, utilities in danger of being shut off: no In past 12 months, lack of transportation kept you from medical appts, meetings, work, or getting things needed for daily living: no In the past 12 mos, have been you worried that your food would run out before you had money to buy more?: never true In the past 12 mos, the food you bought just didn't last and you didn't have money to buy more?: never true Smoking Status: Current every day smoker What tobacco products do you use: cigarettes Smoking packs per day: 0.5 Smoking cigarettes per day: 10.0 Years smoked: 50 Smoking pack-years: 25.00 Do you use any of these nicotine containing products: None Second hand tobacco smoke exposure: Yes How often do you have a drink containing alcohol: never How often do you have six or more drinks on one occasion: Never AUDIT-C Alcohol total score: 0 Non-prescribed substance use: marijuana (any form) How often does anyone, including family, friends and others, physically hurt you: never How often does anyone, including family, friends and others, insult or talk down to you: never How often does anyone, including family, friends and others, threaten you with harm: never How often does anyone, including family, friends and others, scream or curse at you: never Little interest or pleasure in doing things: not at all Feeling down, depressed, or hopeless: not at all service: No Exam Const: Vital Signs, click to edit/add: Vital Signs - 24 hr 12/15/22 14:19 12/15/22 14:26 12/15/22 14:29 Temperature 97.3 F L Pulse Rate 119 H Pulse Rate [Pulse Oximeter] 125 H Respiratory Rate 22 Blood Pressure Blood Pressure [Ri ght Upper Arm] 141/108 H Pulse Oximetry 87 L 87 L 92 Oxygen Delivery Me thod Room Air Room Air Nasal Cannula Oxygen Flow Rate 2 12/15/22 14:30 12/15/22 14:31 12/15/22 14:32 Temperature Pulse Rate 110 H 119 H 110 H Pulse Rate [Pulse Oximeter] Respiratory Rate Blood Pressure 98/60 Blood Pressure [Ri ght Upper Arm] Pulse Oximetry 94 94 93 Oxygen Delivery Me thod Nasal Cannula Nasal Cannula Nasal Cannula Oxygen Flow Rate 2 2 2 12/15/22 14:57 12/15/22 15:00 12/15/22 15:01 Temperature Pulse Rate 115 H 113 H 114 H Pulse Rate [Pulse Oximeter] Respiratory Rate Blood Pressure 89/65 L Blood Pressure [Ri ght Upper Arm] Pulse Oximetry 93 93 93 Oxygen Delivery Me thod Nasal Cannula Nasal Cannula Nasal Cannula Oxygen Flow Rate 2 2 2 12/15/22 15:05 12/15/22 15:06 12/15/22 15:07 Temperature Pulse Rate 112 H 113 H 112 H Pulse Rate [Pulse Oximeter] Respiratory Rate Blood Pressure 106/53 L 87/62 L Blood Pressure [Ri ght Upper Arm] Pulse Oximetry 94 95 94 Oxygen Delivery Me thod Nasal Cannula Nasal Cannula Nasal Cannula Oxygen Flow Rate 2 2 2 12/15/22 15:16 12/15/22 15:30 12/15/22 15:33 Temperature Pulse Rate 114 H 113 H 113 H Pulse Rate [Pulse Oximeter] Respiratory Rate Blood Pressure 98/58 L Blood Pressure [Ri ght Upper Arm] Pulse Oximetry 93 92 91 Oxygen Delivery Me thod Nasal Cannula Nasal Cannula Nasal Cannula Oxygen Flow Rate 2 2 2 12/15/22 15:45 12/15/22 16:00 12/15/22 16:01 Temperature Pulse Rate 111 H 111 H 111 H Pulse Rate [Pulse Oximeter] Respiratory Rate Blood Pressure 107/66 Blood Pressure [Ri ght Upper Arm] Pulse Oximetry 93 94 95 Oxygen Delivery Me thod Nasal Cannula Nasal Cannula Nasal Cannula Oxygen Flow Rate 2 2 2 12/15/22 16:19 12/15/22 16:30 12/15/22 16:32 Temperature Pulse Rate 115 H 110 H 108 H Pulse Rate [Pulse Oximeter] Respiratory Rate Blood Pressure 98/50 L Blood Pressure [Ri ght Upper Arm] Pulse Oximetry 91 96 94 Oxygen Delivery Me thod Nasal Cannula Nasal Cannula Nasal Cannula Oxygen Flow Rate 2 2 2 12/15/22 16:45 Temperature Pulse Rate 104 H Pulse Rate [Pulse Oximeter] Respiratory Rate Blood Pressure Blood Pressure [Ri ght Upper Arm] Pulse Oximetry 95 Oxygen Delivery Me thod Nasal Cannula Oxygen Flow Rate 2 Course Vital Signs Vital signs: Initial Vital Signs Temperature 97.3 F L 12/15/22 14:19 Temperature Source Temporal Artery Scan 12/15/22 14:19 Pulse Rate 125 H 12/15/22 14:19 Pulse Rhythm Regular 12/15/22 14:19 Respiratory Rate 22 12/15/22 14:19 Blood Pressure 141/108 H 12/15/22 14:19 Blood Pressure Mean 119 H 12/15/22 14:19 Blood Pressure Position Sitting 12/15/22 14:19 Pulse Oximetry 87 L 12/15/22 14:19 Oxygen Delivery Method Room Air 12/15/22 14:19 Vital Signs Temperature 97.3 F L 12/15/22 14:19 Pulse Rate 125 H 12/15/22 14:19 Respiratory Rate 22 12/15/22 14:19 Blood Pressure 141/108 H 12/15/22 14:19 Pulse Oximetry 87 L 12/15/22 14:19 Oxygen Delivery Method Room Air 12/15/22 14:19 Temperature 97.3 F L 12/15/22 14:19 Pulse Rate 104 H 12/15/22 16:45 Respiratory Rate 22 12/15/22 14:19 Blood Pressure 98/50 L 12/15/22 16:32 Pulse Oximetry 95 12/15/22 16:45 Oxygen Delivery Method Nasal Cannula 12/15/22 16:45 Oxygen Flow Rate 2 12/15/22 16:45 MDM - SOB/Dyspnea MDM Narrative Medical decision making narrative: Patient is a 61 year female presents emergency department for shortness of breath. She is mildly tachypneic and tachycardic at this time. She had decreased lung sounds throughout but not hear any obvious wheezing. We will try a an albuterol breathing treatment. With a history will order a COVID/flu, be [employer] PILOT, urinalysis, D-dimer, CMP, magnesium, EKG. EKG shows sinus tachycardia. Lab work returned with a weight: 28.38. She currently meets SIRS criteria lactic was ordered. She was given fluids per sepsis protocol. This was at the 30 milliliters/kilogram. She is given a total 2800 mL of fluid. Chest x-ray showed signs of pneumonia. Those results came back at 15:06. Lactate was ordered and came back with a mildly elevated 2.0. Considering everything was expecting this to be higher. BNP is elevated at 2200. I still 514 to give her fluids at this time considering she is also hypotensive. After she received the fluids her blood pressure improved along with her heart rate. Maps are currently stable above 65. D-dimer was elevated so a CTA was ordered. A returned showing multiple pulmonary emboli but no right heart strain. Pelvis again shows pneumonia in area of the could be a cancerous. Cannot do family safe this lung cancer at this time. Since she is stable on 2 L nasal cannula and says she is feeling well as never had by has a dizziness I spoke to the hospitalist in accepted her to for admission in [place]. Heparin was ordered for the blood clots. Rocephin and azithromycin was given for pneumonia Lab Data Labs: Lab Results 12/15/22 12/15/22 12/15/22 Range/Units 14:30 14:40 15:16 WBC 28.38 H* (4.50-11.00) K/uL RBC 4.64 (4.00-5.20) m/uL Hgb 13.0 (12.0-16.0) gm/dL Hct 40.3 (33.0-51.0) % MCV 87 (80-100) fL MCH 28 (26-34) pg MCHC 32 (32-36) gm/dL RDW Coeff of Rick 15.2 (11.5-15.5) % Plt Count 435 (140-440) K/uL Neut % (Auto) 89.3 H (42.0-72.0) % Lymph % (Auto) 4.8 L (20-44) % [place] % (Auto) 4.9 (0.0-11.0) % Eos % (Auto) 0.0 (0.0-7.0) % Baso % (Auto) 0.1 (0.0-3.0) % Neut # (Auto) 25.30 H (1.7-7.0) K/uL Lymph # (Auto) 1.40 (0.90-2.90) K/uL [place] # (Auto) 1.40 H (0.00-0.90) K/UL Eos # (Auto) 0.00 (0.00-0.50) K/uL Baso # (Auto) 0.00 (0.00-0.30) K/uL Abs Immat Gran (auto) 0.30 (0.00-0.30) K/uL Imm/Tot Granulo (auto) 0.9 % Diff Slide Review Acceptable Review (Acceptable) D-Dimer Quant (PE/DVT) 5.55 H (0.00-0.50) ug/ml Sodium 133 L (135-149) mmol/L Potassium 3.7 (3.6-5.1) mmol/L Chloride 99 (96-114) mmol/L Carbon Dioxide 26 (20-32) mmol/L Anion Gap 8 (7-15) mEq/L BUN 39 H (7-30) mg/dL Creatinine 1.5 (0.5-1.5) mg/dL Estimated Creat Clear 25.78 Estimated GFR 38 ml/min Glucose 136 H (60-115) mg/dL Lactate 2.0 H (0.5-1.9) mmol/L Calcium 9.4 (8.4-10.6) mg/dL Magnesium 1.7 (1.5-2.6) mg/dL Total Bilirubin 0.8 (0.1-1.5) mg/dL AST 47 H (12-35) U/L ALT 45 H (4-35) U/L Alkaline Phosphatase 96 (40-150) U/L Troponin I 0.02 (0.01-0.04) ng/mL NT-Pro-B Natriuret Pep 2280 pg/mL Total Protein 6.9 (6.0-8.3) g/dL Albumin 3.3 (3.3-5.0) g/dL Urine Color (Yellow) Urine Appearance (Clear) Urine pH (5.0-8.5) Ur Specific [place] (1.000-1.030) Urine Protein (Negative) Urine Glucose (UA) (Negative) Urine Ketones (Negative) Urine Blood (Negative) Urine Nitrite (Negative) Urine Bilirubin (Negative) Urine Urobilinogen (0.2-1.0) Ur Leukocyte Esterase (Negative) Urine RBC (0-2) Urine WBC (0-5) Ur Squamous Epith Cells (None-Few) Urine Bacteria (None) SARS-CoV-2 (PCR) Negative SARS-CoV-2 (Negative) Influenza Type A (PCR) Negative PCR FLU A (Negative) Influenza Type B (PCR) Negative PCR FLU B (Negative) Lab Acknowledgement Test Added 12/15/22 Range/Units 16:05 WBC (4.50-11.00) K/uL RBC (4.00-5.20) m/uL Hgb (12.0-16.0) gm/dL Hct (33.0-51.0) % MCV (80-100) fL MCH (26-34) pg MCHC (32-36) gm/dL RDW Coeff of Rick (11.5-15.5) % Plt Count (140-440) K/uL Neut % (Auto) (42.0-72.0) % Lymph % (Auto) (20-44) % [place] % (Auto) (0.0-11.0) % Eos % (Auto) (0.0-7.0) % Baso % (Auto) (0.0-3.0) % Neut # (Auto) (1.7-7.0) K/uL Lymph # (Auto) (0.90-2.90) K/uL [place] # (Auto) (0.00-0.90) K/UL Eos # (Auto) (0.00-0.50) K/uL Baso # (Auto) (0.00-0.30) K/uL Abs Immat Gran (auto) (0.00-0.30) K/uL Imm/Tot Granulo (auto) % Diff Slide Review (Acceptable) D-Dimer Quant (PE/DVT) (0.00-0.50) ug/ml Sodium (135-149) mmol/L Potassium (3.6-5.1) mmol/L Chloride (96-114) mmol/L Carbon Dioxide (20-32) mmol/L Anion Gap (7-15) mEq/L BUN (7-30) mg/dL Creatinine (0.5-1.5) mg/dL Estimated Creat Clear Estimated GFR ml/min Glucose (60-115) mg/dL Lactate (0.5-1.9) mmol/L Calcium (8.4-10.6) mg/dL Magnesium (1.5-2.6) mg/dL Total Bilirubin (0.1-1.5) mg/dL AST (12-35) U/L ALT (4-35) U/L Alkaline Phosphatase (40-150) U/L Troponin I (0.01-0.04) ng/mL NT-Pro-B Natriuret Pep pg/mL Total Protein (6.0-8.3) g/dL Albumin (3.3-5.0) g/dL Urine Color Dark yellow (Yellow) Urine Appearance Clear (Clear) Urine pH 5.5 (5.0-8.5) Ur Specific [place] >= 1.030 (1.000-1.030) Urine Protein 3+ A (Negative) Urine Glucose (UA) Negative (Negative) Urine Ketones 1+ A (Negative) Urine Blood Trace-intact A (Negative) Urine Nitrite Positive A (Negative) Urine Bilirubin 2+ A (Negative) Urine Urobilinogen 1.0 (0.2-1.0) Ur Leukocyte Esterase Negative (Negative) Urine RBC 2-5 A (0-2) Urine WBC 10-25 A (0-5) Ur Squamous Epith Cells Few (None-Few) Urine Bacteria Moderate A (None) SARS-CoV-2 (PCR) (Negative) Influenza Type A (PCR) (Negative) Influenza Type B (PCR) (Negative) Lab Acknowledgement Imaging Data Chest x-ray: Radiologist's impression: 1. Asymmetric, mixed interstitial/alveolar opacities, most confluent in the right upper lobe. 2. Pneumonia is suspected. Imaging followup is advised to document resolution. Dictated by Wu Mcguire MD @ 12/15/2022 3:06:47 PM CTA chest: Radiologist's impression: 1. Pulmonary emboli in the left distal main pulmonary artery, left upper left lower lobe right lower lobe lobar pulmonary arteries. No findings for right heart strain. 2. Right upper lobe patchy consolidation. Right hilar soft tissue fullness may be related to adenopathy or possible mass. Irregular left upper lobe 1.3 x 1.7 centimeter bilobed nodule. 7 millimeter left lower lobe nodules. Findings could represent infectious etiologies however findings are worrisome for malignancy. Pulmonary consultation recommended. Results called to Dr. Alfaro on 12/15/22 at 5:50pm. Please note that all CT scans at this facility use dose modulation, iterative reconstruction, and/or weight-based dosing when appropriate to reduce radiation dose to as low as reasonably achievable. Dictated by Alysia Hartmann MD @ 12/15/2022 5:53:44 PM ECG Data Attestation: I personally reviewed and interpreted this ECG as follows: Prior ECG tracings: available for review Interpretation: EKG shows sinus tachycardia rate of 121 beats per minute, normal intervals, left axis, no ST or T-wave abnormalities. Appears he may previous EKG on file Critical Care Time Critical Care Time Critical Care Time: Yes Attestation: The patient required my highest level preparedness to intervene emergently and I personally spent this critical care time directly and personally managing the patient. This critical care time included: Obtaining a history; Examining the patient; Pulse oximetry; Ordering and reviewing of studies; Arranging urgent treatment with development of a management plan; Evaluation of patients response to treatment; Frequent reassessment discussions with other providers. This critical care time was performed to assess and manage the high probability of imminent life-threatening deterioration that could result in multiorgan failure. It was exclusive of separate billable procedures and treating other patients and teaching time. Total Critical Care Time in Minutes: 65 Discharge Plan Discharge Clinical Impression: Pulmonary embolism Qualifiers: Pulmonary embolism type: unspecified Chronicity: acute Acute cor pulmonale presence: unspecified Qualified Code(s): I26.99 - Other pulmonary embolism without acute cor pulmonale Pneumonia Qualifiers: Pneumonia type: due to unspecified organism Laterality: bilateral Lung location: unspecified part of lung Qualified Code(s): J18.9 - Pneumonia, unspecified organism Patient Disposition: Admitted As Observation Discharge Location: [facility] Condition: Improved
[2022-12-15] MEDS: HEPARIN 5,000 UNIT/0.5 ML INJ 7300 UNIT IVP (18:46)
[2022-12-15] MEDS: HEPARIN 25,000 UNIT/500 ML BAG 30 UNIT IV (18:49)
[2022-12-15 18:50] LABS: Hematocrit 38.6 % (33.0-51.0); Hemoglobin* 12.5 gm/dL (12.0-16.0); Mean Corpuscular HGB Conc 32 gm/dL (32-36); Mean Corpuscular Hemoglobin 29 pg (26-34); Mean Corpuscular Volume 88 fL (80-100); Platelet Count* 368 K/uL (140-440); Red Blood Count 4.38 m/uL (4.00-5.20)
[2022-12-15 18:52] LABS: Slide Review Reflex Yes; White Blood Count* 25.04 K/uL (4.50-11.00)
[2022-12-15 19:04] LABS: INR 1.21 (0.91-1.10); Prothrombin Time 16.1 Seconds
[2022-12-15 19:05] LABS: Partial Thromboplastin Time* 31 Seconds (23-33)
[2022-12-15 19:14] LABS: Slide Review Acceptable Review (Acceptable)
--- NOTE | 2022-12-15 20:46 | PM.IMHP1 ---
Hospitalist- H&P: HPI History of Present Illness Date Seen: 12/15/22 Chief complaint: Shortness of breath Narrative: Erika Mccoy is a 67 year old woman presents with increasing shortness of breath for the last few days. Has tried her bronchodilators at home with minimal help. Her daughter finally convinced her to come in for assessment today. Describes dyspnea at rest that worsens with talking, eating, any exertion. Has a chronic cough which is worse now than it has been previously. Cough intermittently productive of clear sputum. Denies hemoptysis. Denies chest pain, pressure, tightness, or aching. Has not had syncope or near-syncope. Has not had nausea or vomiting. Denies fevers, rigors, diaphoresis. Denies night sweats or weight loss. Has not had exposure to anyone sick that she is aware of. Has not had COVID-19 or influenza in the recent past that she is aware of. For the most part has quit smoking. Historically has smoked most of her life. Over the last couple weeks she has only been sneaking a cigarette in here in there. States has little interest in smoking at this time. Review of Systems Status of ROS: Reports: 10 or more systems reviewed and unremarkable except as noted in History and below Narrative: Patient requests DNR DNI resuscitation status in the event of cardiopulmonary demise. She designates her daughter 1st and her son 2nd as points of contact should the patient be unable to speak on her own behalf and/or not be able to make her own medical decisions. [facility] Surgical History History of tubal ligation (03/23/12) ?Z98.51 - Tubal ligation status (ICD-10) Family History Son Healthy adult Daughter Healthy adult Social History (Updated 11/21/22 @ 15:50 by Eloise Foy ~ PAULINO) Narrative: Does not know family history because she was adopted. Living on the main level in a home with her daughter. Has been cutting down smoking over the past two months, now down to 1/2 ppd. Rarely drinks alcohol. Occassional use of marajuana gummies at night. No other recreational drugs. FULL CODE What is your current living situation?: I presently have a place to live Problems where you live: no known problems Problems where you live details: none In the past 12 months, utilities in danger of being shut off: no In past 12 months, lack of transportation kept you from medical appts, meetings, work, or getting things needed for daily living: no In the past 12 mos, have been you worried that your food would run out before you had money to buy more?: never true In the past 12 mos, the food you bought just didn't last and you didn't have money to buy more?: never true Smoking Status: Former smoker What tobacco products do you use: cigarettes Smoking packs per day: 0.5 Smoking cigarettes per day: 10.0 Years smoked: 50 Smoking pack-years: 25.00 Smoking quit date/years: <= 15 years ago Do you use any of these nicotine containing products: None Second hand tobacco smoke exposure: Yes How often do you have a drink containing alcohol: monthly or less Alcohol type: hard liquor Alcohol type details: will have the occasional drink with dinner sometimes How often do you have six or more drinks on one occasion: Never AUDIT-C Alcohol total score: 1 Non-prescribed substance use: denies use Caffeine: Yes (coffee, soda, energy drinks) How often does anyone, including family, friends and others, physically hurt you: never How often does anyone, including family, friends and others, insult or talk down to you: never How often does anyone, including family, friends and others, threaten you with harm: never How often does anyone, including family, friends and others, scream or curse at you: never Little interest or pleasure in doing things: not at all Feeling down, depressed, or hopeless: not at all service: No Meds Home Medications and Allergies Home Medication Comments: 1. Levothyroxine 150 mcg once daily 2. Albuterol 2.5 mg nebulized q.6 hours p.r.n. 3. albuterol inhaler 2-4 inhalations Q 2-4 hours p.r.n. 4. Ipratropium with albuterol DuoNeb q.i.d. p.r.n. 5. Fluticasone 250 mcg with some meter all 50 mcg (Advair Diskus) 1 inhalation twice daily 6. Lisinopril with hydrochlorothiazide 20/252 tabs p.o. at bedtime 7. Takes prednisone fairly regularly at least half the month. Completed a course of prednisone a few days ago. 8. Tiotropium bromide 18 mcg inhaled once daily (Spiriva HandiHaler) Allergies Allergy/AdvReac Type Severity Reaction Status Date / Time No Known Drug Allergies Allergy Verified 12/15/22 17:13 Exam Narrative: Exam Narrative: Examined the patient emergency department. Appears tired but not toxic. Obese. Vision and hearing are grossly normal. Alert and oriented to self, place, time, situation. Articulate and cooperative. Oxygen administered via nasal cannula. External auditory canals are clear. Nasal septum is deviated. Dry buccal mucosa. No oropharyngeal lesions. Midline trachea. Neck supple. No JVD or hepatojugular reflux. Lungs with scattered wheezing and rhonchi bilaterally with rales on the right side. Chest wall excursions are full. Abdomen with active bowel sounds, soft, nontender. Extremities without edema. No focal motor neurologic deficits. No icterus, conjunctival injection, rashes, petechiae, jaundice, or cyanosis. Const: Vital Signs, click to edit/add: Vital Signs - 24 hr 12/15/22 14:19 12/15/22 14:26 12/15/22 14:29 Temperature 97.3 F L Pulse Rate 119 H Pulse Rate [Pulse Oximeter] 125 H Respiratory Rate 22 Blood Pressure Blood Pressure [Le ft Arm] Blood Pressure [Ri ght Upper Arm] 141/108 H Pulse Oximetry 87 L 87 L 92 Oxygen Delivery Me thod Room Air Room Air Nasal Cannula Oxygen Flow Rate 2 12/15/22 14:30 12/15/22 14:31 12/15/22 14:32 Temperature Pulse Rate 110 H 119 H 110 H Pulse Rate [Pulse Oximeter] Respiratory Rate Blood Pressure 98/60 Blood Pressure [Le ft Arm] Blood Pressure [Ri ght Upper Arm] Pulse Oximetry 94 94 93 Oxygen Delivery Me thod Nasal Cannula Nasal Cannula Nasal Cannula Oxygen Flow Rate 2 2 2 12/15/22 14:57 12/15/22 15:00 12/15/22 15:01 Temperature Pulse Rate 115 H 113 H 114 H Pulse Rate [Pulse Oximeter] Respiratory Rate Blood Pressure 89/65 L Blood Pressure [Le ft Arm] Blood Pressure [Ri ght Upper Arm] Pulse Oximetry 93 93 93 Oxygen Delivery Me thod Nasal Cannula Nasal Cannula Nasal Cannula Oxygen Flow Rate 2 2 2 12/15/22 15:05 12/15/22 15:06 12/15/22 15:07 Temperature Pulse Rate 112 H 113 H 112 H Pulse Rate [Pulse Oximeter] Respiratory Rate Blood Pressure 106/53 L 87/62 L Blood Pressure [Le ft Arm] Blood Pressure [Ri ght Upper Arm] Pulse Oximetry 94 95 94 Oxygen Delivery Me thod Nasal Cannula Nasal Cannula Nasal Cannula Oxygen Flow Rate 2 2 2 12/15/22 15:16 12/15/22 15:30 12/15/22 15:33 Temperature Pulse Rate 114 H 113 H 113 H Pulse Rate [Pulse Oximeter] Respiratory Rate Blood Pressure 98/58 L Blood Pressure [Le ft Arm] Blood Pressure [Ri ght Upper Arm] Pulse Oximetry 93 92 91 Oxygen Delivery Me thod Nasal Cannula Nasal Cannula Nasal Cannula Oxygen Flow Rate 2 2 2 12/15/22 15:45 12/15/22 16:00 12/15/22 16:01 Temperature Pulse Rate 111 H 111 H 111 H Pulse Rate [Pulse Oximeter] Respiratory Rate Blood Pressure 107/66 Blood Pressure [Le ft Arm] Blood Pressure [Ri ght Upper Arm] Pulse Oximetry 93 94 95 Oxygen Delivery Me thod Nasal Cannula Nasal Cannula Nasal Cannula Oxygen Flow Rate 2 2 2 12/15/22 16:19 12/15/22 16:30 12/15/22 16:32 Temperature Pulse Rate 115 H 110 H 108 H Pulse Rate [Pulse Oximeter] Respiratory Rate Blood Pressure 98/50 L Blood Pressure [Le ft Arm] Blood Pressure [Ri ght Upper Arm] Pulse Oximetry 91 96 94 Oxygen Delivery Me thod Nasal Cannula Nasal Cannula Nasal Cannula Oxygen Flow Rate 2 2 2 12/15/22 16:45 12/15/22 17:06 12/15/22 17:10 Temperature Pulse Rate 104 H 104 H 103 H Pulse Rate [Pulse Oximeter] Respiratory Rate Blood Pressure 67/34 L Blood Pressure [Le ft Arm] Blood Pressure [Ri ght Upper Arm] Pulse Oximetry 95 94 94 Oxygen Delivery Me thod Nasal Cannula Nasal Cannula Nasal Cannula Oxygen Flow Rate 2 2 2 12/15/22 17:15 12/15/22 17:18 12/15/22 17:27 Temperature Pulse Rate 104 H 103 H 101 H Pulse Rate [Pulse Oximeter] Respiratory Rate Blood Pressure 83/49 L 96/43 L Blood Pressure [Le ft Arm] Blood Pressure [Ri ght Upper Arm] Pulse Oximetry 94 95 95 Oxygen Delivery Me thod Nasal Cannula Nasal Cannula Nasal Cannula Oxygen Flow Rate 2 2 2 12/15/22 17:30 12/15/22 17:32 12/15/22 17:45 Temperature Pulse Rate 98 100 98 Pulse Rate [Pulse Oximeter] Respiratory Rate Blood Pressure 101/52 L Blood Pressure [Le ft Arm] Blood Pressure [Ri ght Upper Arm] Pulse Oximetry 95 96 97 Oxygen Delivery Me thod Nasal Cannula Nasal Cannula Nasal Cannula Oxygen Flow Rate 2 2 2 12/15/22 17:46 12/15/22 18:00 12/15/22 18:01 Temperature Pulse Rate 98 98 98 Pulse Rate [Pulse Oximeter] Respiratory Rate Blood Pressure 84/51 L 102/77 Blood Pressure [Le ft Arm] Blood Pressure [Ri ght Upper Arm] Pulse Oximetry 97 95 96 Oxygen Delivery Me thod Nasal Cannula Nasal Cannula Nasal Cannula Oxygen Flow Rate 2 2 2 12/15/22 18:15 12/15/22 18:16 12/15/22 18:30 Temperature Pulse Rate 97 99 99 Pulse Rate [Pulse Oximeter] Respiratory Rate Blood Pressure 103/44 L Blood Pressure [Le ft Arm] Blood Pressure [Ri ght Upper Arm] Pulse Oximetry 98 96 95 Oxygen Delivery Me thod Nasal Cannula Nasal Cannula Nasal Cannula Oxygen Flow Rate 2 2 2 12/15/22 18:31 12/15/22 18:45 12/15/22 18:46 Temperature Pulse Rate 100 101 H 102 H Pulse Rate [Pulse Oximeter] Respiratory Rate Blood Pressure 103/52 L 116/59 L Blood Pressure [Le ft Arm] Blood Pressure [Ri ght Upper Arm] Pulse Oximetry 94 95 95 Oxygen Delivery Me thod Nasal Cannula Nasal Cannula Nasal Cannula Oxygen Flow Rate 2 2 2 12/15/22 19:00 12/15/22 19:20 12/15/22 19:20 Temperature 99.2 F Pulse Rate 100 Pulse Rate [Pulse Oximeter] 97 Respiratory Rate 24 24 Blood Pressure Blood Pressure [Le ft Arm] 116/48 L Blood Pressure [Ri ght Upper Arm] Pulse Oximetry 95 93 92 Oxygen Delivery Me thod Nasal Cannula Nasal Cannula Nasal Cannula Oxygen Flow Rate 2 2 2 Hospitalist - H&P: Result Labs Labs: Short CBC 12/15/22 12/15/22 Range/Units 14:30 18:35 WBC 28.38 H* 25.04 H* (4.50-11.00) K/uL Hgb 13.0 12.5 (12.0-16.0) gm/dL Hct 40.3 38.6 (33.0-51.0) % Plt Count 435 368 (140-440) K/uL BMP 12/15/22 14:30 Sodium 133 L Potassium 3.7 Chloride 99 Carbon Dioxide 26 BUN 39 H Creatinine 1.5 Glucose 136 H Calcium 9.4 Cardiac Enzymes 12/15/22 Range/Units 14:30 Troponin I 0.02 (0.01-0.04) ng/mL Liver Function 12/15/22 Range/Units 14:30 Total Bilirubin 0.8 (0.1-1.5) mg/dL AST 47 H (12-35) U/L ALT 45 H (4-35) U/L Alkaline Phosphatase 96 (40-150) U/L Albumin 3.3 (3.3-5.0) g/dL Urine 12/15/22 Range/Units 16:05 Urine Color Dark yellow (Yellow) Urine Appearance Clear (Clear) Urine pH 5.5 (5.0-8.5) Ur Specific [place] >= 1.030 (1.000-1.030) Urine Protein 3+ A (Negative) Urine Glucose (UA) Negative (Negative) Imaging Chest x-ray: Attestation: I have reviewed the pertinent imaging results. Radiologist's impression: 12/15/2022 IMPRESSION: 1. Asymmetric, mixed interstitial/alveolar opacities, most confluent in the right upper lobe. 2. Pneumonia is suspected. Imaging followup is advised to document resolution. CT angiogram of chest: Attestation: I have reviewed the pertinent imaging results. Radiologist's impression: 12/15/2022 IMPRESSION: 1. Pulmonary emboli in the left distal main pulmonary artery, left upper left lower lobe right lower lobe lobar pulmonary arteries. No findings for right heart strain. 2. Right upper lobe patchy consolidation. Right hilar soft tissue fullness may be related to adenopathy or possible mass. Irregular left upper lobe 1.3 x 1.7 centimeter bilobed nodule. 7 millimeter left lower lobe nodules. Findings could represent infectious etiologies however findings are worrisome for malignancy. Pulmonary consultation recommended. Assessment and Plan Assessment and plan (1) Community acquired pneumonia: Problem comment: - CT angiogram 12/15/2022: Right upper lobe patchy consolidation. Right hilar soft tissue fullness may be related to adenopathy or possible mass. Irregular left upper lobe 1.3 x 1.7 centimeter bilobed nodule. 7 millimeter left lower lobe nodules. Findings could represent infectious etiologies however findings are worrisome for malignancy. Pulmonary consultation recommended. - emergency department was given IV ceftriaxone 1 g and IV azithromycin 500 mg. - on admission started on IV ceftriaxone 1 g Q 24 hours and change to p.o. azithromycin 500 mg once daily. Status: Acute (2) Acute on chronic respiratory failure with hypoxemia: Problem comment: - room air oxygen saturation at rest on admission was 70%. - oxygen at 2 liters/minute via nasal cannula maintaining saturations around 90% on admission to the hospital. Status: Acute (3) Pulmonary embolism: Problem comment: - CT angiogram 12/15/2022: Pulmonary emboli in the left distal main pulmonary artery, left upper left lower lobe right lower lobe lobar pulmonary arteries. No findings for right heart strain. - initially started on heparin drip in the emergency department. - on admission to the floor I stopped the heparin drip and switch to enoxaparin 110 mg once daily based on weight and decreased renal function. - consider switching to apixaban prior to discharge home. Status: Acute (4) Severe chronic obstructive pulmonary disease: Problem comment: - Dxed officially with moderate to severe COPD by PFTs at [facility] 02/27/22, with multiple exacerbations through Winter 2021-2023, Spiriva started 12/02. - uses prednisone roughly 1 week every month. Completed a course prior to admission to the hospital. Will start methylprednisolone in the hospital IV and will need to switch to oral prior to discharge. Status: Acute (5) Pulmonary nodules: Problem comment: - CT angiogram, 12/15/2022: Right upper lobe patchy consolidation. Right hilar soft tissue fullness may be related to adenopathy or possible mass. Irregular left upper lobe 1.3 x 1.7 centimeter bilobed nodule. 7 millimeter left lower lobe nodules. Findings could represent infectious etiologies however findings are worrisome for malignancy. Pulmonary consultation recommended. - recommend pulmonary consultation be set up after discharge from the hospital. Status: Acute (6) Morbid obesity with body mass index (BMI) of 40.0 or higher: Status: Acute (7) Essential hypertension: Problem comment: - Dxed around 2009, on medication lisinopril 20 mg with hydrochlorothiazide 25 mg, 2 tabs at at bedtime. - hold her medications due to relative hypotension on presentation to the hospital. Status: Acute (8) Hypothyroidism: Problem comment: - on levothyroxine Status: Acute (9) Hypovolemia due to dehydration: Problem comment: - relative hypotension in the emergency department resolved with IV fluid administration - normal saline 125 mL/hour IV times 1 L then saline lock Status: Acute (10) Acute kidney injury superimposed on chronic kidney disease: Problem comment: - baseline creatinine 1.1. Creatinine on admission 1.5. - IV fluids and monitor creatinine. Status: Acute (11) Tobacco dependence with current use: Problem comment: - lifelong smoker. - discussed importance of eliminating further exposure to tobacco for multiple reasons including exacerbation of her COPD. - declines any nicotine replacement in the hospital at this time. Status: Acute Plan 1. Reviewed impression and plans with patient. 2. Answered patient's questions are satisfaction. 3. Patient agreeable with above stated plans and recommendations.
[2022-12-15] MEDS: IPRAT-ALBUT 0.5-2.5 MG/3 ML NEB 1 NEB IH (20:48)
[2022-12-15] MEDS: ENOXAPARIN 120 MG/0.8 ML INJ 110 MG SUBCUT (20:48)
[2022-12-15] MEDS: METHYLPREDNISOLONE SOD SUCC 62.5 MG/ML (125) 125 MG IVP (20:48)
[2022-12-15] MEDS: SODIUM CHLORIDE 0.9 % (FLUSH) 10 ML SYRINGE 5 ML IVF (20:49)
[2022-12-15] MEDS: 0.9 % SODIUM CHLORIDE 500 ML 500 ML IV (22:03)
[2022-12-15] MEDS: 0.9 % SODIUM CHLORIDE 1000 ml 1,000 ML 125 ML IV (23:48)
[2022-12-16] VITALS (7 sets, daily range): BP systolic 112–121; BP diastolic 47–76; PULSE 73–90; RESP 16–22; TEMP 36.4–36.8; O2SAT 91–94
[2022-12-16] MEDS: IPRAT-ALBUT 0.5-2.5 MG/3 ML NEB 1 NEB IH ×3 (05:29→18:57)
[2022-12-16] MEDS: LEVOTHYROXINE 75 MCG TABLET 150 MCG PO (05:48)
[2022-12-16 06:20] LABS: HCO3 VBG 23 mmol/L (21-28); Lactate* 1.5 mmol/L (0.5-1.9); PCO2 VBG 35 mmHG (40-50); PO2 VBG 51.2 mmHG (25-47); pH VBG 7.418 (7.32-7.43)
[2022-12-16 06:28] LABS: Hematocrit 36.5 % (33.0-51.0); Hemoglobin* 11.7 gm/dL (12.0-16.0); Immature Granulocytes Pct Auto 0.9 %; Lymphocytes Percent Auto 2.1 % (20-44); Mean Corpuscular HGB Conc 32 gm/dL (32-36); Mean Corpuscular Hemoglobin 28 pg (26-34); Mean Corpuscular Volume 88 fL (80-100); Monocytes Percent Auto 1.4 % (0.0-11.0); Neutrophils Percent Auto 95.6 % (42.0-72.0); Platelet Count* 384 K/uL (140-440); RDW Coefficient of Variation % 15.1 % (11.5-15.5); Red Blood Count 4.13 m/uL (4.00-5.20); White Blood Count* 24.01 K/uL (4.50-11.00)
[2022-12-16 06:31] LABS: Slide Review Reflex No
[2022-12-16 06:39] LABS: Chloride* 108 mmol/L (96-114); Potassium* 4.1 mmol/L (3.6-5.1); Sodium* 137 mmol/L (135-149)
[2022-12-16 06:42] LABS: Creatinine* 1.2 mg/dL (0.5-1.5); Est. Creatinine Clearance* 32.23; Estimated Glomerular Filt Rate 49 ml/min
[2022-12-16 06:43] LABS: Anion Gap 7 mEq/L (7-15); Blood Urea Nitrogen* 37 mg/dL (7-30); Calcium* 8.4 mg/dL (8.4-10.6); Carbon Dioxide* 22 mmol/L (20-32); Glucose* 174 mg/dL (60-115); Phosphorus* 4.3 mg/dL (2.5-4.5)
[2022-12-16 06:53] LABS: INR 1.25 (0.91-1.10); Prothrombin Time 16.5 Seconds; Troponin I* 0.01 ng/mL (0.01-0.04)
--- NOTE | 2022-12-16 07:11 | PC.NURSE ---
end of shift [id number]- Pt oriented and cooperative. Appeared to be fatigued, with pt stating she ?hadn?t gotten much sleep? in the last 24 hours. Pt denies pain, nausea, dizziness at rest and with exertion. Tolerating O2 via nasal cannula at 1.5L and maintaining O2 saturation between 90-93%. Pt reports experiencing weakness and informed nurse that she ?wouldn?t be able get to the bathroom on her own?. Pt able to ambulate to bathroom with standby assist, but did report feeling increased weakness and SOB. Continent of bowel and bladder. Pt had 2 voids during shift, urine observed to have red coloration and strong odor. Redness noted under bilateral breasts, MD notified. Observed to sleep and appeared to be resting comfortably at end of shift.
[2022-12-16 07:39] LABS: C Reactive Protein* 39.4 mg/dL (0.5-1.0)
[2022-12-16] MEDS: SODIUM CHLORIDE 0.9 % (FLUSH) 10 ML SYRINGE 5 ML IVF ×2 (08:54→20:39)
--- NOTE | 2022-12-16 09:31 | PM.IMPN1 ---
Progress Note: A&P Assessment and plan (1) Acute on chronic respiratory failure with hypoxemia: Problem details: - in setting of acute CAP, COPD, PE, possible lung mass versus adenopathy, query heart failure - room air oxygen saturation at rest on admission was 70%. VBG pH 7.41, pCO2 35 - oxygen dependent at home, normally 2 L at bedtime, now using as needed throughout the day, typically exertional - currently requiring 1-1.5 L, continue to wean as able, maintaining saturations 88-92% - previous echocardiogram 2007 shows overall systolic function normal, EF 60% - echocardiogram ordered. BNP 2280 Status: Acute (2) Community acquired pneumonia: Problem details: - CT angiogram 12/15/2022: Right upper lobe patchy consolidation. Right hilar soft tissue fullness may be related to adenopathy or possible mass. Irregular left upper lobe 1.3 x 1.7 centimeter bilobed nodule. 7 millimeter left lower lobe nodules. Findings could represent infectious etiologies however findings are worrisome for malignancy. Pulmonary consultation recommended. - significant leukocytosis, continue to trend, procalcitonin 1.7, lactate trended down, BC x2 pending - emergency department was given IV ceftriaxone 1 g and IV azithromycin 500 mg. - on admission started on IV ceftriaxone 1 g Q 24 hours and changed to p.o. azithromycin 500 mg once daily. - Mucinex b.i.d., nebulizers, incentive spirometry - strep pneumo, Legionella, sputum culture, MRSA ordered Status: Acute (3) Pulmonary embolism: Problem details: - CT angiogram 12/15/2022: Pulmonary emboli in the left distal main pulmonary artery, left upper left lower lobe right lower lobe lobar pulmonary arteries. No findings for right heart strain. - initially started on heparin drip in the emergency department. - on admission to the floor switched from heparin drip to enoxaparin - enoxaparin 1.5 milligrams/kilogram, creatinine clearance 32, = 150 mg Q 24 hours - will transition to apixaban prior to discharge home Status: Acute (4) Severe chronic obstructive pulmonary disease: Problem details: - Dxed officially with moderate to severe COPD by PFTs at [facility] 02/27/22, with multiple exacerbations through Winter 2021-2023, Spiriva started 12/02. No formal Pulmonology consult - uses prednisone roughly 1 week every month. Completed a course prior to admission to the hospital. Will start methylprednisolone in the hospital IV and will need to switch to oral prior to discharge to complete 5 day course. 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 - DuoNebs q.i.d., albuterol nebs p.r.n., incentive spirometry - RT for pulmonary support Status: Acute (5) Pulmonary nodules: Problem details: - CT angiogram, 12/15/2022: Right upper lobe patchy consolidation. Right hilar soft tissue fullness may be related to adenopathy or possible mass. Irregular left upper lobe 1.3 x 1.7 centimeter bilobed nodule. 7 millimeter left lower lobe nodules. Findings could represent infectious etiologies however findings are worrisome for malignancy. Pulmonary consultation recommended. - assist in scheduling outpatient follow-up with [facility] Status: Acute (6) Acute kidney injury superimposed on chronic kidney disease: Problem details: - baseline creatinine 1.1. Creatinine on admission 1.5. Improved to 1.2 - IV fluids -completed- and monitor creatinine. Status: Acute (7) Hypovolemia due to dehydration: Problem details: - relative hypotension in the emergency department resolved with IV fluid administration - normal saline 125 mL/hour IV times 1 L then saline lock -completed Status: Acute (8) Essential hypertension: Problem details: - Dxed around 2009, on medication lisinopril 20 mg with hydrochlorothiazide 25 mg, 2 tabs at at bedtime. - hold her medications due to relative hypotension on presentation to the hospital - some improvement with blood pressure but will continue to monitor prior to resuming home doses Status: Acute (9) Hypothyroidism: Problem details: - on levothyroxine Status: Acute (10) Abnormal urinalysis: Problem details: - UC pending, continue ceftriaxone Status: Acute Time Spent With Patient Total time spent: Total time spent caring for the patient today was 45 minutes. This includes time spent for the visit reviewing the chart, time spent during the visit, time spent after the visit and documentation and planning in coordination of care. Subjective Date Seen: 12/16/22 Interval history: Patient is feeling a little better but nowhere near baseline. Remains afebrile. Continues to require oxygen at rest, currently 1-1.5 L per N/C. Tolerating orals. Tells me she uses 2 L oxygen at bedtime and more frequently now throughout the day. Become short of breath with minimal exertion. When she checks her saturations at home, if she is 90 or below will use oxygen intermittently. Continues to smoke casually when out with friends. Had her routine physical just recently and was told by her PCP she would likely need to see Pulmonology for her poorly controlled COPD. Exam Narrative: Exam Narrative: PHYSICAL EXAM General: Sitting up in bed, appropriately conversant, NAD HEENT: Normocephalic, atraumatic, sclera white, EOMI, oral mucosa moist Cardiovascular: RRR, S1S2. Mild swelling without pitting edema Pulmonary: Diffusely diminished without rhonchi or expiratory wheezes. Mild dyspnea Neurological: Alert, answering questions appropriately, cranial nerves intact, no focal findings Extremities: No gross joint deformity or swelling. AROMI. Neurovascularly intact Skin: Warm, dry. Const: Vital Signs, click to edit/add: Vital Signs - 24 hr 12/15/22 14:19 12/15/22 14:26 12/15/22 14:29 Temperature 97.3 F L Pulse Rate 119 H Pulse Rate [Pulse Oximeter] 125 H Respiratory Rate 22 Blood Pressure Blood Pressure [Le ft Arm] Blood Pressure [Ri ght Upper Arm] 141/108 H Pulse Oximetry 87 L 87 L 92 Oxygen Delivery Me thod Room Air Room Air Nasal Cannula Oxygen Flow Rate 2 12/15/22 14:30 12/15/22 14:31 12/15/22 14:32 Temperature Pulse Rate 110 H 119 H 110 H Pulse Rate [Pulse Oximeter] Respiratory Rate Blood Pressure 98/60 Blood Pressure [Le ft Arm] Blood Pressure [Ri ght Upper Arm] Pulse Oximetry 94 94 93 Oxygen Delivery Me thod Nasal Cannula Nasal Cannula Nasal Cannula Oxygen Flow Rate 2 2 2 12/15/22 14:57 12/15/22 15:00 12/15/22 15:01 Temperature Pulse Rate 115 H 113 H 114 H Pulse Rate [Pulse Oximeter] Respiratory Rate Blood Pressure 89/65 L Blood Pressure [Le ft Arm] Blood Pressure [Ri ght Upper Arm] Pulse Oximetry 93 93 93 Oxygen Delivery Me thod Nasal Cannula Nasal Cannula Nasal Cannula Oxygen Flow Rate 2 2 2 12/15/22 15:05 12/15/22 15:06 12/15/22 15:07 Temperature Pulse Rate 112 H 113 H 112 H Pulse Rate [Pulse Oximeter] Respiratory Rate Blood Pressure 106/53 L 87/62 L Blood Pressure [Le ft Arm] Blood Pressure [Ri ght Upper Arm] Pulse Oximetry 94 95 94 Oxygen Delivery Me thod Nasal Cannula Nasal Cannula Nasal Cannula Oxygen Flow Rate 2 2 2 12/15/22 15:16 12/15/22 15:30 12/15/22 15:33 Temperature Pulse Rate 114 H 113 H 113 H Pulse Rate [Pulse Oximeter] Respiratory Rate Blood Pressure 98/58 L Blood Pressure [Le ft Arm] Blood Pressure [Ri ght Upper Arm] Pulse Oximetry 93 92 91 Oxygen Delivery Me thod Nasal Cannula Nasal Cannula Nasal Cannula Oxygen Flow Rate 2 2 2 12/15/22 15:45 12/15/22 16:00 12/15/22 16:01 Temperature Pulse Rate 111 H 111 H 111 H Pulse Rate [Pulse Oximeter] Respiratory Rate Blood Pressure 107/66 Blood Pressure [Le ft Arm] Blood Pressure [Ri ght Upper Arm] Pulse Oximetry 93 94 95 Oxygen Delivery Me thod Nasal Cannula Nasal Cannula Nasal Cannula Oxygen Flow Rate 2 2 2 12/15/22 16:19 12/15/22 16:30 12/15/22 16:32 Temperature Pulse Rate 115 H 110 H 108 H Pulse Rate [Pulse Oximeter] Respiratory Rate Blood Pressure 98/50 L Blood Pressure [Le ft Arm] Blood Pressure [Ri ght Upper Arm] Pulse Oximetry 91 96 94 Oxygen Delivery Me thod Nasal Cannula Nasal Cannula Nasal Cannula Oxygen Flow Rate 2 2 2 12/15/22 16:45 12/15/22 17:06 12/15/22 17:10 Temperature Pulse Rate 104 H 104 H 103 H Pulse Rate [Pulse Oximeter] Respiratory Rate Blood Pressure 67/34 L Blood Pressure [Le ft Arm] Blood Pressure [Ri ght Upper Arm] Pulse Oximetry 95 94 94 Oxygen Delivery Me thod Nasal Cannula Nasal Cannula Nasal Cannula Oxygen Flow Rate 2 2 2 12/15/22 17:15 12/15/22 17:18 12/15/22 17:27 Temperature Pulse Rate 104 H 103 H 101 H Pulse Rate [Pulse Oximeter] Respiratory Rate Blood Pressure 83/49 L 96/43 L Blood Pressure [Le ft Arm] Blood Pressure [Ri ght Upper Arm] Pulse Oximetry 94 95 95 Oxygen Delivery Me thod Nasal Cannula Nasal Cannula Nasal Cannula Oxygen Flow Rate 2 2 2 12/15/22 17:30 12/15/22 17:32 12/15/22 17:45 Temperature Pulse Rate 98 100 98 Pulse Rate [Pulse Oximeter] Respiratory Rate Blood Pressure 101/52 L Blood Pressure [Le ft Arm] Blood Pressure [Ri ght Upper Arm] Pulse Oximetry 95 96 97 Oxygen Delivery Me thod Nasal Cannula Nasal Cannula Nasal Cannula Oxygen Flow Rate 2 2 2 12/15/22 17:46 12/15/22 18:00 12/15/22 18:01 Temperature Pulse Rate 98 98 98 Pulse Rate [Pulse Oximeter] Respiratory Rate Blood Pressure 84/51 L 102/77 Blood Pressure [Le ft Arm] Blood Pressure [Ri ght Upper Arm] Pulse Oximetry 97 95 96 Oxygen Delivery Me thod Nasal Cannula Nasal Cannula Nasal Cannula Oxygen Flow Rate 2 2 2 12/15/22 18:15 12/15/22 18:16 12/15/22 18:30 Temperature Pulse Rate 97 99 99 Pulse Rate [Pulse Oximeter] Respiratory Rate Blood Pressure 103/44 L Blood Pressure [Le ft Arm] Blood Pressure [Ri ght Upper Arm] Pulse Oximetry 98 96 95 Oxygen Delivery Me thod Nasal Cannula Nasal Cannula Nasal Cannula Oxygen Flow Rate 2 2 2 12/15/22 18:31 12/15/22 18:45 12/15/22 18:46 Temperature Pulse Rate 100 101 H 102 H Pulse Rate [Pulse Oximeter] Respiratory Rate Blood Pressure 103/52 L 116/59 L Blood Pressure [Le ft Arm] Blood Pressure [Ri ght Upper Arm] Pulse Oximetry 94 95 95 Oxygen Delivery Me thod Nasal Cannula Nasal Cannula Nasal Cannula Oxygen Flow Rate 2 2 2 12/15/22 19:00 12/15/22 19:20 12/15/22 19:20 Temperature 99.2 F Pulse Rate 100 Pulse Rate [Pulse Oximeter] 97 Respiratory Rate 24 24 Blood Pressure Blood Pressure [Le ft Arm] 116/48 L Blood Pressure [Ri ght Upper Arm] Pulse Oximetry 95 93 92 Oxygen Delivery Me thod Nasal Cannula Nasal Cannula Nasal Cannula Oxygen Flow Rate 2 2 2 12/15/22 20:22 12/15/22 23:00 12/15/22 23:00 Temperature 96.4 F L Pulse Rate 96 Pulse Rate [Pulse Oximeter] 90 Respiratory Rate 20 20 Blood Pressure Blood Pressure [Le ft Arm] 120/48 L Blood Pressure [Ri ght Upper Arm] Pulse Oximetry 93 93 Oxygen Delivery Me thod Nasal Cannula Nasal Cannula Oxygen Flow Rate 3 3 12/15/22 23:21 12/16/22 02:17 Temperature 97.9 F Pulse Rate 91 Pulse Rate [Pulse Oximeter] 78 Respiratory Rate 20 Blood Pressure Blood Pressure [Le ft Arm] 116/47 L Blood Pressure [Ri ght Upper Arm] Pulse Oximetry 92 Oxygen Delivery Me thod Nasal Cannula Oxygen Flow Rate 1.5 Labs Labs: Laboratory Results - last 24 hr 12/15/22 12/15/22 12/15/22 14:30 14:40 15:16 WBC 28.38 H* RBC 4.64 Hgb 13.0 Hct 40.3 MCV 87 MCH 28 MCHC 32 RDW Coeff of Rick 15.2 Plt Count 435 Neut % (Auto) 89.3 H Lymph % (Auto) 4.8 L [place] % (Auto) 4.9 Eos % (Auto) 0.0 Baso % (Auto) 0.1 Neut # (Auto) 25.30 H Lymph # (Auto) 1.40 [place] # (Auto) 1.40 H Eos # (Auto) 0.00 Baso # (Auto) 0.00 Abs Immat Gran (auto) 0.30 Imm/Tot Granulo (auto) 0.9 Diff Slide Review Acceptable Review INR APTT D-Dimer Quant (PE/DVT) 5.55 H VBG pH VBG pCO2 VBG pO2 VBG HCO3 Sodium 133 L Potassium 3.7 Chloride 99 Carbon Dioxide 26 Anion Gap 8 BUN 39 H Creatinine 1.5 Estimated Creat Clear 25.78 Estimated GFR 38 Glucose 136 H Lactate 2.0 H Calcium 9.4 Phosphorus Magnesium 1.7 Total Bilirubin 0.8 AST 47 H ALT 45 H Alkaline Phosphatase 96 Troponin I 0.02 C-Reactive Protein NT-Pro-B Natriuret Pep 2280 Total Protein 6.9 Albumin 3.3 Procalcitonin Urine Color Urine Appearance Urine pH Ur Specific [place] Urine Protein Urine Glucose (UA) Urine Ketones Urine Blood Urine Nitrite Urine Bilirubin Urine Urobilinogen Ur Leukocyte Esterase Urine RBC Urine WBC Ur Squamous Epith Cells Urine Bacteria SARS-CoV-2 (PCR) Negative SARS-CoV-2 Influenza Type A (PCR) Negative PCR FLU A Influenza Type B (PCR) Negative PCR FLU B Lab Acknowledgement Test Added 12/15/22 12/15/22 12/15/22 16:05 18:35 18:42 WBC 25.04 H* RBC 4.38 Hgb 12.5 Hct 38.6 MCV 88 MCH 29 MCHC 32 RDW Coeff of Rick Plt Count 368 Neut % (Auto) Lymph % (Auto) [place] % (Auto) Eos % (Auto) Baso % (Auto) Neut # (Auto) Lymph # (Auto) [place] # (Auto) Eos # (Auto) Baso # (Auto) Abs Immat Gran (auto) Imm/Tot Granulo (auto) Diff Slide Review Acceptable Review INR 1.21 H APTT 31 D-Dimer Quant (PE/DVT) VBG pH VBG pCO2 VBG pO2 VBG HCO3 Sodium Potassium Chloride Carbon Dioxide Anion Gap BUN Creatinine Estimated Creat Clear Estimated GFR Glucose Lactate Calcium Phosphorus Magnesium Total Bilirubin AST ALT Alkaline Phosphatase Troponin I C-Reactive Protein NT-Pro-B Natriuret Pep Total Protein Albumin Procalcitonin Urine Color Dark yellow Urine Appearance Clear Urine pH 5.5 Ur Specific [place] >= 1.030 Urine Protein 3+ A Urine Glucose (UA) Negative Urine Ketones 1+ A Urine Blood Trace-intact A Urine Nitrite Positive A Urine Bilirubin 2+ A Urine Urobilinogen 1.0 Ur Leukocyte Esterase Negative Urine RBC 2-5 A Urine WBC 10-25 A Ur Squamous Epith Cells Few Urine Bacteria Moderate A SARS-CoV-2 (PCR) Influenza Type A (PCR) Influenza Type B (PCR) Lab Acknowledgement 12/16/22 06:05 WBC 24.01 H RBC 4.13 Hgb 11.7 L Hct 36.5 MCV 88 MCH 28 MCHC 32 RDW Coeff of Rick 15.1 Plt Count 384 Neut % (Auto) 95.6 H Lymph % (Auto) 2.1 L [place] % (Auto) 1.4 Eos % (Auto) 0.0 Baso % (Auto) 0.0 Neut # (Auto) 23.00 H Lymph # (Auto) 0.50 L [place] # (Auto) 0.30 Eos # (Auto) 0.00 Baso # (Auto) 0.00 Abs Immat Gran (auto) 0.20 Imm/Tot Granulo (auto) 0.9 Diff Slide Review INR 1.25 H APTT D-Dimer Quant (PE/DVT) VBG pH 7.418 VBG pCO2 35 L VBG pO2 51.2 H VBG HCO3 23 Sodium 137 Potassium 4.1 Chloride 108 Carbon Dioxide 22 Anion Gap 7 BUN 37 H Creatinine 1.2 Estimated Creat Clear 32.23 Estimated GFR 49 Glucose 174 H Lactate 1.5 Calcium 8.4 Phosphorus 4.3 Magnesium 2.0 Total Bilirubin AST ALT Alkaline Phosphatase Troponin I 0.01 C-Reactive Protein 39.4 H NT-Pro-B Natriuret Pep Total Protein Albumin Procalcitonin 1.70 H Urine Color Urine Appearance Urine pH Ur Specific [place] Urine Protein Urine Glucose (UA) Urine Ketones Urine Blood Urine Nitrite Urine Bilirubin Urine Urobilinogen Ur Leukocyte Esterase Urine RBC Urine WBC Ur Squamous Epith Cells Urine Bacteria SARS-CoV-2 (PCR) Influenza Type A (PCR) Influenza Type B (PCR) Lab Acknowledgement
[2022-12-16] MEDS: METHYLPREDNISOLONE SOD SUCC 40 MG/ML IVP (10:01)
[2022-12-16] MEDS: NYSTATIN POWDER 1 APPLIC TOPICAL ×2 (10:03→20:38)
[2022-12-16] MEDS: ENOXAPARIN 80 MG/0.8 ML INJ 150 MG SUBCUT (10:04)
[2022-12-16] MEDS: guaiFENesin 600 MG TAB.ER.12H PO ×2 (12:01→20:38)
--- NOTE | 2022-12-16 12:52 | RESP.RT ---
Patient sitting up in bed on Nasal Cannula 1 Lpm, SaO2 93%, breathing slightly SOB. Patient Home Oxygen at 2 Lpm. IS with good effort, 1500 with float in good area, PEP with Aerobika, good effort, fair chest shake, nonproductive cough promoted with both IS and Aerobika. Patient has Aerobika at home and stated continues to use it.
[2022-12-16 14:59] LABS: S pneumo Ag Urine S. pneumo Negative (Negative)
[2022-12-16 15:00] LABS: Legionella pneumo Ag Urine L. pneumo Negative (Negative)
--- NOTE | 2022-12-16 15:07 | PC.NURSE ---
Pt sitting up at bed entire day. Pt down from 15L O2 to 0.5L
--- NOTE | 2022-12-16 15:08 | PC.NURSE ---
Pt sitting up at bed entire day. Pt down from 1.5L O2 to 0.5L O2 via nasal cannula to maintain sats per MD order. Prefers Neb treatment with mask. Denies pain. Up independently in room. Daughter to bring in pt's home inhalers. Instructed to give to RN to be verified by Pharmacy team.
[2022-12-16] MEDS: AZITHROMYCIN 250 MG TABLET 500 MG PO (16:02)
[2022-12-16] MEDS: cefTRIAXone 1 GM in 0.9 % SODIUM CHLORIDE Mini-bag 100 ML IVPB (16:04)
[2022-12-16] MEDS: Fluticasone Propion-Salmeterol [Advair Diskus] 250-50 mcg/dose 1 EACH IH (20:38)
--- NOTE | 2022-12-16 21:14 | PC.NURSE ---
Sats high 80s, low 90s on 0.5 L NC, pt did not want me to wean her from O2. Discomfort in right groin area- reddened, irritated- cleaned/dried. Otherwise denies pain. SOB on exertion. LS coarse, intermittent productive cough. Tolerating regular diet, drinking a lot of fluids. 100 cc yellow urine w/ mucus. Last BM today, 12/16. Skin dusky. Up independently in room. PIV in right AC- redressed, SL'd, intermittent abx. Echo done, results pending. Will continue to monitor, follow POC, and keep pt and family updated. Dottie Longoria RN
[2022-12-17] VITALS (10 sets, daily range): BP systolic 122–163; BP diastolic 58–82; PULSE 77–90; RESP 16–22; TEMP 36.1–36.7; O2SAT 90–94
[2022-12-17] MEDS: IPRAT-ALBUT 0.5-2.5 MG/3 ML NEB 1 NEB IH ×4 (00:54→20:06)
[2022-12-17] MEDS: LEVOTHYROXINE 75 MCG TABLET 150 MCG PO (05:51)
[2022-12-17 06:04] LABS: Hematocrit 34.3 % (33.0-51.0); Mean Corpuscular HGB Conc 32 gm/dL (32-36); Mean Corpuscular Hemoglobin 28 pg (26-34); Mean Corpuscular Volume 87 fL (80-100); Platelet Count* 424 K/uL (140-440); Red Blood Count 3.93 m/uL (4.00-5.20); White Blood Count* 24.47 K/uL (4.50-11.00)
[2022-12-17 06:06] LABS: Slide Review Reflex No
[2022-12-17 06:13] LABS: Chloride* 109 mmol/L (96-114)
[2022-12-17 06:14] LABS: Potassium* 3.6 mmol/L (3.6-5.1); Sodium* 140 mmol/L (135-149)
[2022-12-17 06:16] LABS: Anion Gap 8 mEq/L (7-15); Aspartate Amino Transferase* 51 U/L (12-35); Bilirubin Total* 0.3 mg/dL (0.1-1.5); Carbon Dioxide* 23 mmol/L (20-32); Creatinine* 1.1 mg/dL (0.5-1.5); Est. Creatinine Clearance* 35.16; Estimated Glomerular Filt Rate 55 ml/min; Total Protein* 6.3 g/dL (6.0-8.3)
[2022-12-17 06:17] LABS: Alanine Aminotransferase* 44 U/L (4-35); Alkaline Phosphatase* 90 U/L (40-150); Blood Urea Nitrogen* 45 mg/dL (7-30); Calcium* 9.1 mg/dL (8.4-10.6); Glucose* 213 mg/dL (60-115)
[2022-12-17 06:36] LABS: C Reactive Protein* 22.9 mg/dL (0.5-1.0)
[2022-12-17] MEDS: SODIUM CHLORIDE 0.9 % (FLUSH) 10 ML SYRINGE 5 ML IVF ×2 (08:50→21:25)
[2022-12-17] MEDS: guaiFENesin 600 MG TAB.ER.12H PO ×2 (08:50→21:25)
[2022-12-17] MEDS: METHYLPREDNISOLONE SOD SUCC 40 MG/ML IVP (08:50)
[2022-12-17] MEDS: NYSTATIN POWDER 1 APPLIC TOPICAL ×2 (08:51→21:25)
[2022-12-17] MEDS: Fluticasone Propion-Salmeterol [Advair Diskus] 250-50 mcg/dose 1 EACH IH ×2 (09:01→21:25)
--- NOTE | 2022-12-17 09:36 | RESP.RT ---
Patient sitting on edge of bed, SaO2 91-92% on 0.5 Lpm Oxygen. Patient states with activity she needs to have more oxygen. Asked to have it turn up to go to the bathroom. SaO2 96% on 2 Lpm oxygen. Discussed with patient need to use lowest settings for Oxygen as needed to maintain not being SOB. Patient states she does take it off for short periods but then finds her need greater for it after a few minutes. Patient is able to ambulate well for short distances. Then needs Oxygen to assist in recovery.
[2022-12-17] MEDS: APIXABAN 5 MG TABLET 10 MG PO ×2 (10:34→21:25)
[2022-12-17] MEDS: 0.9 % SODIUM CHLORIDE 1000 ml 1,000 ML 125 ML IV (10:34)
--- NOTE | 2022-12-17 11:21 | PM.IMPN1 ---
Progress Note: A&P Assessment and plan (1) Acute on chronic respiratory failure with hypoxemia: Problem details: - in setting of acute CAP, COPD, PE, possible lung mass versus adenopathy, query heart failure - room air oxygen saturation at rest on admission was 70%. VBG pH 7.41, pCO2 35 - oxygen dependent at home, normally 2 L at bedtime, now using as needed throughout the day, typically exertional and when feeling anxious as reported by patient - currently requiring 1-1.5 L, continue to wean as able, maintaining saturations 88-92%. 12/17: Saturates 92-94% on room air - previous echocardiogram 2007 shows overall systolic function normal, EF 60% - BNP 2280. Echocardiogram (12/15) shows normal global systolic function without hemodynamically significant valvular disease, EF 65-70% Status: Acute (2) Community acquired pneumonia: Problem details: - CT angiogram 12/15/2022: Right upper lobe patchy consolidation. Right hilar soft tissue fullness may be related to adenopathy or possible mass. Irregular left upper lobe 1.3 x 1.7 centimeter bilobed nodule. 7 millimeter left lower lobe nodules. Findings could represent infectious etiologies however findings are worrisome for malignancy. Pulmonary consultation recommended. - significant leukocytosis sustained- suspect given steroid therapy, continue to trend; procalcitonin 1.7, lactate trended down, BC x2 NGTD. Hyperglycemia noted while on steroids, continue to monitor. No known history of diabetes - emergency department was given IV ceftriaxone 1 g and IV azithromycin 500 mg. - on admission started on IV ceftriaxone 1 g Q 24 hours and changed to p.o. azithromycin 500 mg once daily. - Mucinex b.i.d., nebulizers, incentive spirometry - strep pneumo negative, Legionella negative, sputum culture pending, MRSA negative Status: Acute (3) Pulmonary embolism: Problem details: - CT angiogram 12/15/2022: Pulmonary emboli in the left distal main pulmonary artery, left upper left lower lobe right lower lobe lobar pulmonary arteries. No findings for right heart strain. - initially started on heparin drip in the emergency department. - on admission to the floor switched from heparin drip to enoxaparin - enoxaparin 1.5 milligrams/kilogram, creatinine clearance 32, = 150 mg Q 24 hours - 11/7: Transition to apixaban 10 mg b.i.d. x7 days, then 5 mg b.i.d.. Outpatient follow-up with PCP for ongoing medication management Status: Acute (4) Severe chronic obstructive pulmonary disease: Problem details: - Dxed officially with moderate to severe COPD by PFTs at [facility] 02/27/22, with multiple exacerbations through Winter 2021-2023, Spiriva started 12/02. No formal Pulmonology consult - uses prednisone roughly 1 week every month. Completed a course prior to admission to the hospital. Will start methylprednisolone in the hospital IV and will need to switch to oral prior to discharge to complete 5 day course. 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 - DuoNebs q.i.d., albuterol nebs p.r.n., incentive spirometry - RT for pulmonary support - 12/17: Discussed with patient appropriate oxygen supplementation with oxygen saturation 88-92%, oxygen/CO2 exchange, risk for hypercapnia, appropriate medication management, need for further testing and recommendations with outpatient pulmonology Status: Acute (5) Pulmonary nodules: Problem details: - CT angiogram, 12/15/2022: Right upper lobe patchy consolidation. Right hilar soft tissue fullness may be related to adenopathy or possible mass. Irregular left upper lobe 1.3 x 1.7 centimeter bilobed nodule. 7 millimeter left lower lobe nodules. Findings could represent infectious etiologies however findings are worrisome for malignancy. Pulmonary consultation recommended. - assist in scheduling outpatient follow-up with [place] [facility] Status: Acute (6) Acute kidney injury superimposed on chronic kidney disease: Problem details: - baseline creatinine 1.1. Creatinine on admission 1.5. Improved to 1.1. - 12/17: BUN increased to 45, will re-initiate hydration for total of 1 L at 125 mL/hour. Encouraged increased oral intake. Status: Acute (7) Hypovolemia due to dehydration: Problem details: - relative hypotension in the emergency department resolved with IV fluid administration - normal saline 125 mL/hour IV times 1 L then saline lock -completed - re-initiated 12/17 for 1 liter. Encouraged increased oral intake Status: Acute (8) Essential hypertension: Problem details: - Dxed around 2009, on medication lisinopril 20 mg with hydrochlorothiazide 25 mg, 2 tabs at at bedtime. - hold her medications due to relative hypotension on presentation to the hospital - some improvement with blood pressure but will continue to monitor prior to resuming home doses Status: Acute (9) Hypothyroidism: Problem details: - on levothyroxine Status: Acute (10) Abnormal urinalysis: Problem details: - UC still pending, continue ceftriaxone Status: Acute Plan Likely discharge 12/18/2022 with recommendation for outpatient pulmonology follow-up Time Spent With Patient Total time spent: Total time spent caring for the patient today was 45 minutes. This includes time spent for the visit reviewing the chart, time spent during the visit, time spent after the visit and documentation and planning in coordination of care. Subjective Date Seen: 12/17/22 Interval history: Patient reports feeling better this morning. Breathing, shortness of breath returning to baseline. Remains afebrile. Denies chest pain. Tolerating orals however does not have much of an appetite. Per nursing and respiratory therapy, patient very anxious about weaning oxygen need. In discussing this with her, patient admits she will check her saturations at home after ambulation and if they are below 93-94%, she will use oxygen. She also tells me that she uses her albuterol inhaler every night and in the middle of the night after getting up to go to the bathroom. She has 1 in her purse, 1 at bedside, and 1 near her chair, having become dependent on these. Exam Narrative: Exam Narrative: PHYSICAL EXAM General: Sitting up in bed, appears brighter this morning, NAD HEENT: Normocephalic, atraumatic, sclera white, EOMI, oral mucosa moist Cardiovascular: RRR, S1S2. Mild swelling without pitting edema Pulmonary: Diffusely diminished without rhonchi or expiratory wheezes. Less dyspnea. Easily conversant. Neurological: Alert, answering questions appropriately, cranial nerves intact, no focal findings Extremities: No gross joint deformity or swelling. AROMI. Neurovascularly intact Skin: Warm, dry. Const: Vital Signs, click to edit/add: Vital Signs - 24 hr 12/16/22 11:45 12/16/22 12:41 12/16/22 15:00 Temperature 98.3 F Pulse Rate 85 Pulse Rate [Pulse Oximeter] 85 Respiratory Rate 22 22 Blood Pressure [Le ft Arm] Blood Pressure [Ri ght Arm] 112/58 L Pulse Oximetry 93 94 Oxygen Delivery Me thod Nasal Cannula Nasal Cannula Oxygen Flow Rate 0.5 1 12/16/22 15:00 12/16/22 15:00 12/16/22 15:00 Temperature 97.5 F L Pulse Rate Pulse Rate [Pulse Oximeter] 85 85 Respiratory Rate 16 16 16 Blood Pressure [Le ft Arm] 113/61 Blood Pressure [Ri ght Arm] Pulse Oximetry 92 92 Oxygen Delivery Me thod Nasal Cannula Nasal Cannula Oxygen Flow Rate 0.5 0.5 12/16/22 18:43 12/17/22 00:50 12/17/22 00:50 Temperature 97.7 F Pulse Rate 85 Pulse Rate [Pulse Oximeter] 90 85 Respiratory Rate 22 20 Blood Pressure [Le ft Arm] Blood Pressure [Ri ght Arm] 118/76 Pulse Oximetry 91 Oxygen Delivery Me thod Nasal Cannula Oxygen Flow Rate 0.5 12/17/22 00:50 12/17/22 00:50 12/17/22 05:50 Temperature 97.7 F 97.2 F L Pulse Rate Pulse Rate [Pulse Oximeter] 90 78 Respiratory Rate 20 20 20 Blood Pressure [Le ft Arm] Blood Pressure [Ri ght Arm] 133/73 126/68 Pulse Oximetry 94 94 90 Oxygen Delivery Me thod Nasal Cannula Nasal Cannula Nasal Cannula Oxygen Flow Rate 0.5 0.5 0.5 12/17/22 07:00 12/17/22 07:00 12/17/22 09:35 Temperature 97.0 F L Pulse Rate Pulse Rate [Pulse Oximeter] 77 Respiratory Rate 20 20 22 Blood Pressure [Le ft Arm] Blood Pressure [Ri ght Arm] 122/63 Pulse Oximetry 93 94 91 Oxygen Delivery Me thod Nasal Cannula Nasal Cannula Nasal Cannula Oxygen Flow Rate 2 0.5 Labs Labs: Laboratory Results - last 24 hr 12/16/22 12/17/22 14:30 05:49 WBC 24.47 H RBC 3.93 L Hgb 11.0 L Hct 34.3 MCV 87 MCH 28 MCHC 32 Plt Count 424 Sodium 140 Potassium 3.6 Chloride 109 Carbon Dioxide 23 Anion Gap 8 BUN 45 H Creatinine 1.1 Estimated Creat Clear 35.16 Estimated GFR 55 Glucose 213 H Calcium 9.1 Total Bilirubin 0.3 Direct Bilirubin 0.0 AST 51 H ALT 44 H Alkaline Phosphatase 90 C-Reactive Protein 22.9 H Total Protein 6.3 Albumin 3.0 L Urine L. pneumophilia Ag L. pneumo Negative Urine Strep pneumoniae Ag S. pneumo Negative
[2022-12-17] MEDS: Tiotropium Bromide [Spiriva With Handihaler] 18 mcg capsule 1 EACH IH (12:43)
[2022-12-17] MEDS: cefTRIAXone 1 GM in 0.9 % SODIUM CHLORIDE Mini-bag 100 ML IVPB (16:19)
[2022-12-17] MEDS: AZITHROMYCIN 250 MG TABLET 500 MG PO (16:19)
--- NOTE | 2022-12-17 19:41 | PC.NURSE ---
End of shift-- Pt has been pleasant and cooperative. VSS and pt is afebrile. SPO2 maintained >89% on 0-0.5L per n.c. She does become SOB with exertion, but is able to recover quickly independently. LS diminished. She continues to have a productive cough with occasional blood tinged sputum. Telemetry shows NSR. She denied pain. She was up to the chair and BR independent to SBA and tolerated it well aside from SOB. Report to oncoming shift and all questions answered.
[2022-12-18 03:00] VITALS: BP 129/71; PULSE 88; RESP 22; TEMP 36.3; O2SAT 93
--- NOTE | 2022-12-18 05:37 | PC.NURSE ---
End of shift [id number]: Patient pleasant and cooperative with cares. Denies any pain this shift. Lung sounds diminished in bilateral bases, clear throughout rest of lung [place]. Patient denies SOB at rest, reports SOB with exertion. Patient able to remain on room air throughout the shift and maintained sats >88%. Redness to right groin appears light pink in color, patient reports that it no longer causes her discomfort. Appetite fair, ate 50% of foods offered. Independent with ambulation. Patient declined 0145 nebulizer, patient states that she will request a nebulizer if she feels like she needs one.
[2022-12-18] MEDS: LEVOTHYROXINE 75 MCG TABLET 150 MCG PO (06:24)
[2022-12-18] MEDS: IPRAT-ALBUT 0.5-2.5 MG/3 ML NEB 1 NEB IH (06:27)
[2022-12-18 06:32] LABS: Hematocrit 31.8 % (33.0-51.0); Hemoglobin* 10.4 gm/dL (12.0-16.0); Mean Corpuscular HGB Conc 33 gm/dL (32-36); Mean Corpuscular Hemoglobin 29 pg (26-34); Mean Corpuscular Volume 88 fL (80-100); Platelet Count* 377 K/uL (140-440); Red Blood Count 3.62 m/uL (4.00-5.20); White Blood Count* 21.49 K/uL (4.50-11.00)
[2022-12-18 06:49] LABS: Chloride* 112 mmol/L (96-114); Potassium* 3.7 mmol/L (3.6-5.1); Sodium* 140 mmol/L (135-149)
[2022-12-18 06:51] LABS: Creatinine* 0.9 mg/dL (0.5-1.5); Est. Creatinine Clearance* 38.68; Estimated Glomerular Filt Rate 70 ml/min
[2022-12-18 06:52] LABS: Anion Gap 4 mEq/L (7-15); Blood Urea Nitrogen* 42 mg/dL (7-30); Carbon Dioxide* 24 mmol/L (20-32); Glucose* 107 mg/dL (60-115)
[2022-12-18 06:58] LABS: Slide Review Reflex No
[2022-12-18 08:00] VITALS: RESP 18; O2SAT 90
[2022-12-18 08:11] VITALS: BP 131/108; PULSE 95; RESP 18; TEMP 37.1; O2SAT 90
[2022-12-18] MEDS: predniSONE 20 MG TABLET 40 MG PO (08:13)
[2022-12-18] MEDS: guaiFENesin 600 MG TAB.ER.12H PO (08:14)
[2022-12-18] MEDS: APIXABAN 5 MG TABLET 10 MG PO (08:14)
[2022-12-18] MEDS: Fluticasone Propion-Salmeterol [Advair Diskus] 250-50 mcg/dose 1 EACH IH (08:15)
[2022-12-18] MEDS: SODIUM CHLORIDE 0.9 % (FLUSH) 10 ML SYRINGE 5 ML IVF (08:15)
[2022-12-18] MEDS: Tiotropium Bromide [Spiriva With Handihaler] 18 mcg capsule 1 EACH IH (08:15)
[2022-12-18] MEDS: ACETAMINOPHEN 325 MG TABLET 650 MG PO (08:29)
[2022-12-18 09:30] VITALS: PULSE 106
[2022-12-18 10:03] VITALS: RESP 20; O2SAT 92
--- NOTE | 2022-12-18 10:04 | RESP.RT ---
Patient lying in bed on Room Air SaO2 92%, breathing regular/easy rate 20/minute. Patient using IS and Aerobika hourly. Stated they do help, has Aerobika at home she states she continues to use. Patient has good clear voice this AM. Discussed with patient using Oxygen at night for desaturations when sleeping, to continue using it during the day sparsely, as needed. Encouraged patient if SOB to rest for a few minutes not to just put the Oxygen on, use IS and Aerobika to help increase lung recruitment increased SaO2 to baseline of >88%.
--- NOTE | 2022-12-18 10:24 | PM.DS1 ---
DS: Providers Provider Date Seen: 12/18/22 Date of admission: 12/15/22 19:34 Primary care physician: Ciara Jon MD Admitting Clinician: Emory Alfaro DO Consults: 12/15/22 19:34 Consult to Respiratory Therapy [CONS] Routine Comment: Reason(s) for RT Consult:: Consult Attending Physician on discharge: IRASEMA Beckham, [facility] Date of Discharge: 12/18/22 DS: Diagnosis Discharge Diagnosis (1) Acute on chronic respiratory failure with hypoxemia: Status: Acute Problem details: - acute episode resolved prior to discharge, workup as below. - in setting of acute CAP, COPD, PE, possible lung mass versus adenopathy, query heart failure - room air oxygen saturation at rest on admission was 70%. VBG pH 7.41, pCO2 35 - oxygen dependent at home, normally 2 L at bedtime, now using as needed throughout the day, typically exertional and when feeling anxious as reported by patient - currently requiring 1-1.5 L, continue to wean as able, maintaining saturations 88-92%. 12/17: Saturates 92-94% on room air which was maintained on day of discharge. - previous echocardiogram 2007 shows overall systolic function normal, EF 60% - BNP 2280. Echocardiogram (12/15) shows normal global systolic function without hemodynamically significant valvular disease, EF 65-70% (2) Community acquired pneumonia: Status: Acute Problem details: - CT angiogram 12/15/2022: Right upper lobe patchy consolidation. Right hilar soft tissue fullness may be related to adenopathy or possible mass. Irregular left upper lobe 1.3 x 1.7 centimeter bilobed nodule. 7 millimeter left lower lobe nodules. Findings could represent infectious etiologies however findings are worrisome for malignancy. Pulmonary consultation recommended. - significant leukocytosis sustained- suspect given steroid therapy, continue to trend; procalcitonin 1.7, lactate trended down, BC x2 NGTD. Hyperglycemia noted while on steroids, continue to monitor. No known history of diabetes - emergency department was given IV ceftriaxone 1 g and IV azithromycin 500 mg. - on admission started on IV ceftriaxone 1 g Q 24 hours and changed to p.o. azithromycin 500 mg once daily. - Mucinex b.i.d., nebulizers, incentive spirometry. Encourage continue with these at home. - strep pneumo negative, Legionella negative, sputum culture remained pending on day of discharge, MRSA negative - discharged with oral doxycycline to complete 7 day course of antibiotics and 5 day course of prednisone. Encouraged to continue with incentive spirometry, Aerobika. (3) Severe chronic obstructive pulmonary disease: Status: Acute Problem details: - Dxed officially with moderate to severe COPD by PFTs at [facility] 02/27/22, with multiple exacerbations through Winter 2021-2023, Spiriva started 12/02. No formal Pulmonology consult - uses prednisone roughly 1 week every month. Completed a course prior to admission to the hospital. Will start methylprednisolone in the hospital IV and will need to switch to oral prior to discharge to complete 5 day course. 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 - DuoNebs q.i.d., albuterol nebs p.r.n., incentive spirometry - RT for pulmonary support - 12/17: Discussed with patient appropriate oxygen supplementation with oxygen saturation 88-92%, oxygen/CO2 exchange, risk for hypercapnia, appropriate medication management, smoking cessation, need for further testing and recommendations with outpatient pulmonology. Continue medication management with PCP following recommendations. (4) Pulmonary embolism: Status: Acute Problem details: - CT angiogram 12/15/2022: Pulmonary emboli in the left distal main pulmonary artery, left upper left lower lobe right lower lobe lobar pulmonary arteries. No findings for right heart strain. - initially started on heparin drip in the emergency department. - on admission to the floor switched from heparin drip to enoxaparin - enoxaparin 1.5 milligrams/kilogram, creatinine clearance 32, = 150 mg Q 24 hours - 12/17: Transition to apixaban 10 mg b.i.d. x7 days, then 5 mg b.i.d.. Outpatient follow-up with PCP for ongoing medication management following discharge. (5) Pulmonary nodules: Status: Acute Problem details: - CT angiogram, 12/15/2022: Right upper lobe patchy consolidation. Right hilar soft tissue fullness may be related to adenopathy or possible mass. Irregular left upper lobe 1.3 x 1.7 centimeter bilobed nodule. 7 millimeter left lower lobe nodules. Findings could represent infectious etiologies however findings are worrisome for malignancy. Pulmonary consultation recommended. -patient to follow with [place] [facility] for further workup and recommendations. (6) Acute kidney injury superimposed on chronic kidney disease: Status: Acute Problem details: - resolved prior to discharge. Continue to monitor with PCP - baseline creatinine 1.1. Creatinine on admission 1.5. Improved to 1.1. - 12/17: BUN increased to 45, will re-initiate hydration for total of 1 L at 125 mL/hour. Encouraged increased oral intake. (7) Hypovolemia due to dehydration: Status: Acute Problem details: - relative hypotension in the emergency department resolved with IV fluid administration - normal saline 125 mL/hour IV times 1 L then saline lock -completed - re-initiated 12/17 for 1 liter. Encouraged increased oral intake, BUN down trending and creatinine at baseline prior to discharge. (8) Essential hypertension: Status: Acute Problem details: - Dxed around 2009, on medication lisinopril 20 mg with hydrochlorothiazide 25 mg, 2 tabs at at bedtime. - hold her medications due to relative hypotension on presentation to the hospital - some improvement with blood pressure but will continue to monitor prior to resuming home doses - discharge to home with usual home doses. Continue management with PCP. DS: Summary Hospital Course Hospital Course: [age] year old female past medical history significant for COPD, oxygen dependent, chronic respiratory failure, active smoker, osteopenia, morbid obesity, hypothyroidism, hypertension was admitted to the medical floor for further management acute on chronic respiratory failure with hypoxemia in setting of acute community-acquired pneumonia, acute pulmonary embolism, poorly managed COPD. Course of care and details as noted above Remainder of chronic medical comorbidities were monitored and managed with home medications. Status at Discharge Overall status at discharge: patient is progressing back to baseline Time Spent with Patient Time attestation: Total time spent providing and/or coordinating discharge services: Time spent: Greater than 30 minutes Exam Narrative: Exam Narrative: PHYSICAL EXAM General: Sitting up in bed, tired this morning, NAD Cardiovascular: RRR Pulmonary: Very mild dyspnea on room air, conversant without difficulty Neurological: Alert, answering questions appropriately Skin: Warm, dry. Const: Vital Signs, click to edit/add: Vital Signs - 24 hr 12/17/22 11:00 12/17/22 11:50 12/17/22 15:00 Temperature 97.3 F L 97.4 F L Pulse Rate 85 Pulse Rate [Pulse Oximeter] 83 90 Respiratory Rate 18 16 Blood Pressure [Le ft Arm] 129/58 L 138/60 Blood Pressure [Ri ght Arm] Pulse Oximetry 91 90 Oxygen Delivery Me thod Room Air Room Air 12/17/22 15:00 12/17/22 15:00 12/17/22 15:45 Temperature Pulse Rate 88 Pulse Rate [Pulse Oximeter] 90 Respiratory Rate 16 16 Blood Pressure [Le ft Arm] Blood Pressure [Ri ght Arm] Pulse Oximetry 90 Oxygen Delivery Me thod Room Air 12/17/22 19:00 12/17/22 23:00 12/17/22 23:00 Temperature 97.8 F 98.1 F Pulse Rate Pulse Rate [Pulse Oximeter] 89 88 Respiratory Rate 18 16 18 Blood Pressure [Le ft Arm] Blood Pressure [Ri ght Arm] 141/73 H 163/82 H Pulse Oximetry 92 93 93 Oxygen Delivery Or thod Room Air Room Air Room Air 12/17/22 23:00 12/18/22 03:00 12/18/22 08:00 Temperature 97.3 F L Pulse Rate 83 Pulse Rate [Pulse Oximeter] 88 Respiratory Rate 22 18 Blood Pressure [Le ft Arm] Blood Pressure [Ri ght Arm] 129/71 Pulse Oximetry 93 90 Oxygen Delivery Or thod Room Air Room Air 12/18/22 08:11 12/18/22 10:03 Temperature 98.8 F Pulse Rate Pulse Rate [Pulse Oximeter] 95 Respiratory Rate 18 20 Blood Pressure [Le ft Arm] 131/108 H Blood Pressure [Ri ght Arm] Pulse Oximetry 90 92 Oxygen Delivery Or thod Room Air Room Air DS: Data Data Completed and Pending Completed studies during hospitalization: Procedures Introduction of Other Gas into Respiratory Tract, Via Natural or Artificial Opening (02/19/22) Labs on day of discharge: Labs from last 24 hours 12/18/22 05:57 WBC 21.49 H RBC 3.62 L Hgb 10.4 L Hct 31.8 L MCV 88 MCH 29 MCHC 33 Plt Count 377 Sodium 140 Potassium 3.7 Chloride 112 Carbon Dioxide 24 Anion Gap 4 L BUN 42 H Creatinine 0.9 Estimated Creat Clear 38.68 Estimated GFR 70 Glucose 107 Calcium 9.0 Preliminary micro results at discharge 12/15/22 18:35 Blood Culture - Preliminary Blood NO GROWTH AFTER 48 HOURS 12/15/22 18:35 Blood Culture - Preliminary Blood NO GROWTH AFTER 48 HOURS 12/16/22 12:02 Sputum Culture - Preliminary Sputum - Expectorated Sputum Discharge Plan Discharge Disposition: Home, Self-Care Date of Admission: 12/15/22 19:34 Attending Provider on Discharge: Loli Leal Primary Care Provider: Ciara Jon Condition: Improved Anticipated Discharge Date/Time: 12/18/22 10:09 Discharge Medications: New doxycycline hyclate 100 mg capsule 100 mg PO BID Qty: 6 0RF prednisone 20 mg Tablet 40 mg PO DAILYWM Qty: 1 0RF Eliquis 5 mg Tablet 10 mg PO BID Qty: 90 1RF Rx Instructions: Take 10mg twice daily through 12/23/22. On 12/24/22, start 5mg twice daily Continued albuterol sulfate [Proventil HFA] 90 mcg/actuation HFA aerosol inhaler 2 - 4 puff inhalation Q2-4H PRN (Reason: shortness of breath or wheezing) Qty: 8.5 11RF albuterol sulfate 2.5 mg /3 mL (0.083 %) solution for nebulization 2.5 mg inhalation Q6H PRN (Reason: bronchospasm) Qty: 75 5RF prednisone 20 mg tablet 40 mg PO DIRECTED Qty: 36 8RF Rx Instructions: Take 2 tabs daily by mouth for 5 days, then take 1 tab daily for 5 days, then take 0.5 tab daily for 5 days. lisinopril-hydrochlorothiazide 20-25 mg tablet 2 tab PO HS Qty: 180 3RF fluticasone propion-salmeterol [Advair Diskus] 250-50 mcg/dose blister with device 1 inh inhalation BID Qty: 60 11RF levothyroxine 150 mcg tablet 150 mcg PO DAILY Qty: 90 3RF ipratropium-albuterol 0.5 mg-3 mg(2.5 mg base)/3 mL solution for nebulization 3 ml inhalation QID PRN (Reason: for dyspnea) tiotropium bromide [Spiriva with HandiHaler] 18 mcg capsule, w/inhalation device 1 cap inhalation DAILY Rx Instructions: puncture 1 cap using device; one dose = 2 inhalations Discharge Orders: Discharge Order (Routine); Ordered 12/18/22 Ordered By: Loli Leal Patient Education: Doxycycline (By mouth), Prednisone (By mouth), Apixaban (By mouth), Pulmonary Embolism (GEN), Bacterial Pneumonia (GEN), Pulmonary Nodules (GEN) Additional Instructions: Finish antibiotic and prednisone for pneumonia in setting of poorly controlled COPD. Continue anticoagulation for pulmonary embolism. Ongoing medication management will be completed with your PCP. It is important to follow-up with Pulmonary Medicine after discharge for further evaluation of pulmonary nodules as well as further testing and medication recommendations for your COPD. For now continue to use your oxygen at nighttime. We discussed minimizing use of oxygen during daytime hours as able, with oxygen saturation expectation 88-92%. Your PCP may decide if he would benefit from a formal sleep study. Activity Level: Activity as Tolerated Discharge Diet: Regular Follow Up Appointments: Ciara Jon MD [Primary Care Provider] - 12/30/22 8:30 am (Post hospital follow up visit. ) Tomasz Anderson MD [Referring] - 12/27/22 (Pulmonary nodules, RUL mass concerning for malignancy with increasing SOB, poorly managed COPD) Forms: [employer] Info Instructions
--- NOTE | 2022-12-18 13:17 | PC.NURSE ---
Discharge note: The patient discharged home @ 1528... Her daughter came and picked her up. Belinda RN provided discharge paperwork and instruction to the patient. He also removed her IV. The patient was in good condition.. Follow up appointments were scheduled Cynthia MURILLO
== END 2022-12-18 12:44 | disposition home or self-care (01) | DRG 175 ==
LOC: ED 18:43 → MEDSURG 19:01
PROVIDERS: Physician Assistant; Admitting Provider Internal Medicine; Emergency Provider Student in an Organized Health Care Education/Training Program; PCP Internal Medicine; Visit Provider Internal Medicine
DX: I26.99 Other pulmonary embolism without acute cor pulmonale (principal); J18.9 Pneumonia, unspecified organism; J96.21 Acute and chronic respiratory failure with hypoxia; Z68.41 Body mass index [BMI] 40.0-44.9, adult; J44.0 Chronic obstructive pulmonary disease with (acute) lower respiratory infection; N17.9 Acute kidney failure, unspecified; J44.9 Chronic obstructive pulmonary disease, unspecified; R91.8 Other nonspecific abnormal finding of lung field; I12.9 Hypertensive chronic kidney disease with stage 1 through stage 4 chronic kidney disease, or unspecified chronic kidney disease; N18.31 Chronic kidney disease, stage 3a; E86.1 Hypovolemia; E03.9 Hypothyroidism, unspecified; E66.01 Morbid (severe) obesity due to excess calories; Z99.81 Dependence on supplemental oxygen; R00.0 Tachycardia, unspecified; I95.9 Hypotension, unspecified; F17.210 Nicotine dependence, cigarettes, uncomplicated
CPT/HCPCS: 36415; 71046; 71275; 80048; 80053; 80076; 81001; 82803; 83605; 83735; 83880; 84100; 84145; 84484; 85025; 85027; 85379; 85610; 85730; 86140; 87040; 87070; 87081; 87086; 87449; 87631; 87899; 93005; 93306; 94640; 94664; 94761; 99284; 99291; A9270; J0456; J0696; J1644; J1650; J2920; J2930; J7030; J7050; J7120; J7512; Q9967

== ENCOUNTER 2022-12-30 09:19 | Outpatient (CLI) | payer MEDICARE, SELFPAY | END 2022-12-30 09:20 | disposition home or self-care (01) | LOC: NFLDREF 09:20 | PROVIDERS: PCP Internal Medicine; Visit Provider Internal Medicine | DX: E03.9 Hypothyroidism, unspecified (principal) | CPT/HCPCS: 84443 ==

== ENCOUNTER 2023-02-14 08:40 | Outpatient (CLI) | payer MEDICARE, SELFPAY | END 2023-02-14 08:41 | disposition home or self-care (01) | LOC: RAD 08:41 | PROVIDERS: PCP Internal Medicine; Visit Provider Internal Medicine | DX: R06.02 Shortness of breath (principal); I26.99 Other pulmonary embolism without acute cor pulmonale | CPT/HCPCS: 93306 ==

== ENCOUNTER 2023-05-14 10:15 | Outpatient (CLI) | payer MEDICARE, SELFPAY ==
--- OUTSIDE RECORDS SUMMARY | 2023-05-17 08:45 | XMS_ITS | Clinical Summary ---
Author Name Unknown Organization [employer] [facility] Address [place], [place] [address] Care Team Providers Care Program Evaluation Consultant Name Role Phone Ciara Jon MD Primary Care Provider [phone] Allergies No known active allergies Medications Medication Sig Dispensed Refills Start Date End Date Status albuterol HFA (PRO-AIR; VENTOLIN; PROVENTIL) 90 mcg/actuation inhaler Inhale 2 Puffs by mouth every 4 hours if needed. Suspended fluticasone propion-salmeteroL (Advair Diskus) 250-50 mcg/Dose diskus inhaler Inhale 1 Puff by mouth two times daily. Suspended LISINOPRIL-HYDROCH LOROTHIAZIDE ORAL Take by mouth. 05/15/19 2 4 Discontinued(Ph armacist change per medication history (E-cancel not sent)) levothyroxine (SYNTHROID) 50 mcg tablet Take 150 mcg by mouth before breakfast. 4 Discontinued(Ph armacist change per medication history (E-cancel not sent)) levothyroxine (Synthroid) 150 mcg tablet Take 150 mcg by mouth at bedtime. Suspended apixaban (Eliquis) 5 mg tablet Take 5 mg by mouth two times daily. Suspended albuterol-ipratrop ium (DUONEB) (2.5-0.5 mg) in 3 mL NEBULIZATION solution Inhale 1 Neb via a nebulizer 4 times daily if needed. NEBULIZE CONTENTS OF 1 VIAL FOUR TIMES A DAY NEEDED FOR DYSPNEA Suspended tiotropium (SPIRIVA HANDIHALER) 18 mcg inhalation capsule Inhale 18 mcg by mouth once daily in the afternoon. Using a SPRIVA HANDIHALER schulz the capsule, then by mouth breathe in the powder. Inhale twice from the same capsule for full dose. Suspended lisinopril-hydroch lorothiazide, 20-25 mg, (PRINZIDE, ZESTORETIC) 20-25 mg per tablet Take 2 Tablets by mouth at bedtime. Suspended azithromycin (Zithromax) 250 mg tablet Take 250 mg by mouth every Friday, Friday and Friday. TAKE ONE TABLET BY MOUTH THREE TIMES WEEKLY (takes at HS) Suspended Active Problems Problem Noted Date Diagnosed Date COPD with exacerbation 05/15/2023 Severe chronic obstructive pulmonary disease 05/2023 Morbid obesity with body mass index (BMI) of 40. 0 or higher 05/15/2023 Osteopenia 05/15/2023 Primary spontaneous pneumothorax 05/15/2023 Essential hypertension 03/23/2012 Hypothyroidism 03/23/2012 Nicotine dependence 03/23/2012 Encounters Date Type Department Care Team Description 05/15/2023 6:20 PM CDT - Present Hospital Encounter [facility] [address] [place] [address] [facility], [facility], MD Emily Lan, MD Les Wang, Santiago Park MD from Last 3 Months Social History Tobacco Use Types Packs/Day Years Used Date Smoking Tobacco: Never Assessed PHQ-2 Answer Date Recorded PHQ-2 TOTAL SCORE 0 10/03/2022 Social Connections Answer Date Recorded Frequency of Communication with Friends and Fami ly Not on file 05/15/2023 Sex and Gender Information Value Date Recorded Sex Assigned at Not on file Gender Identity Not on file Sexual Orientation Not on file Last Filed Vital Signs Vital Sign Reading Time Taken Comments Blood Pressure 93/44 05/17/2023 8:27 AM CDT Pulse 70 05/17/2023 8:27 AM CDT Temperature 36.6 ??C (97.8 ??F) 05/17/2023 8:27 AM CD T Respiratory Rate 18 05/17/2023 8:27 AM CDT Oxygen Saturation 93% 05/17/2023 8:27 AM CDT Inhaled Oxygen Concentration - - Weight 105.6 kg (232 lb 12.8 oz) 05/17/2023 6:08 AM CDT Height 152.4 cm (5') 04/11/2022 1:00 PM [employer] Body Mass Index 45.47 04/11/2022 1:00 PM [employer] SITE [employer]INE[employer] Plan of Treatment Health Maintenance Due Date Last Done Comments Pneumococcal series for age 65+ (1 of 2 - PCV) 1960 Tdap 1965 BMI (ht and wt on same day) for age 18+ 1972 Hepatitis C screening for ag e 18-79 1972 Tetanus booster 1974 Colonoscopy through age 75 05/20/1999 Lipids for age 45-75 05/20/1999 Mammogram for age 45-75 05/20/1999 Zoster (shingles) series for age 50+ (1 of 2) 2004 DEXA/DXA scan for age 65+ 05/20/2019 Depression screening for age 12+ 09/27/2023 09/27/19, 04/11/2022 Influenza for age 65+ 10/12/2023 COVID-19 vaccine series Completed 11/22/19, 12/06/2021, 07/24/2021, Additional history exists Procedures The patient is currently admitted. The information in this section might not be complete until the patient is discharged. Procedure Name Priority Date/Time Associated Diagnosis Comments CREATININE Early AM 05/17/2023 7:44 AM CDT WHITE BLOOD COUNT Early AM 05/17/2023 7:4 4 AM CDT XR CHEST 1 VIEW PORTABLE Timed 05/17/2023 4:59 AM CDT BASIC METABOLIC PANEL Early AM 05/16/2023 8:59 AM CDT CBC W PLT NO DIFF Early AM 05/16/2023 8:5 9 AM CDT ARTERIAL BLOOD GAS STAT 05/16/2023 4: 28 AM CDT XR CHEST 1 VIEW PORTABLE STAT 05/16/2023 3:34 AM CDT from Last 3 Months Results * (ABNORMAL) WBC AM (05/17/2023 7:44 AM CDT) WHITE BLOOD COUNT 12.8(H) 4.5 - 11.0 thou/cu mm 05/17/2023 8:07 AM CDT [facility] NRBC 0.0 % 05/17/2023 8:07 AM CDT [facility] ABS NRBC 0.0 thou /cu mm 05/17/2023 8:07 AM CDT [facility] Blood BLOOD SPECIMEN / Unknown Venipuncture / Unknown 05/17/2023 7:44 AM CDT 05/17/2023 7:52 AM CDT Katie Diaz MD HEMATOLOGY Performing Organization Address [facility] Co de Phone Number [facility] [address] [place] [id number], [place] * (ABNORMAL) Creatinine AM (05/17/2023 7:44 AM CDT) eGFR 35(L) >90 mL/min/1.7 3m2 05/17/2023 8:27 AM CDT [facility] Comment:As of 2021, eG FR is calculated by the CKD-EPI creatinine equation without race adjustment. ??eGFR can be influenced by muscle mass, exercise, and diet. ??The reported eGFR is an estimation only and is only applicable if the renal function is stable. CREATININE 1.60(H) 0.50 - 0.90 mg/dL 05/17/2023 8:27 AM CDT [facility] Blood BLOOD SPECIMEN / Unknown Venipuncture / Unknown 05/17/2023 7:44 AM CDT 05/17/2023 7:52 AM CDT Katie Diaz MD CHEMISTRY Performing Organization Address [facility]/ZIP Co de Phone Number [facility] [address] [place] [phone], [place] * XR CHEST 1 VIEW PORTABLE (05/17/2023 4:59 AM CDT) Only the most recent of2 resultswithin the time period is included. Anatomical Region Laterality Modality HEART, THORAX, CHEST Digital Rad iography 05/17/2023 7:26 AM CDT Narrative 05/17/2023 7:26 AM CDT For Patients: ??As a result of the Cures Act, medical imaging exams and procedure reports are released immediately into your electronic medical record. ??You may view this report before your referring provider. ??If you have questions, please contact your health care provider. INDICATION: Follow-up TECHNIQUE: Single-view chest Comparison 05/16/2023 FINDINGS: Low lung volumes. Enlarged cardiac silhouette. Right-sided chest tube unchanged diffuse subcutaneous emphysema along the right chest wall decreased. Basilar atelectasis no pneumothorax is seen. Dictated by Alysia Hartmann MD @ May ??2023 ??7:26AM (Electronically Signed) [email or web address] Procedure Note Alysia Hartmann MD - 05/17/2023 For Patients: As a result of the Cures Act, medical imagingexams and procedure reports are released immediately into your electronicmedical record. You may view this report before your referring provider.If you have questions, please contact your health care provider. INDICATION: Follow-up TECHNIQUE: Single-view chest Comparison 05/16/2023 FINDINGS: Low lung volumes. Enlarged cardiac silhouette. Right-sided chest tubeunchanged diffuse subcutaneous emphysema along the right chest walldecreased. Basilar atelectasis no pneumothorax is seen. Dictated by Alysia Hartmann MD @ May 17 2023 7:26AM (Electronically Signed) [email or web address] [facility] * (ABNORMAL) CBC W PLT NO DIFF (05/16/2023 8:59 AM CDT) WHITE BLOOD COUNT 19.0(H) 4.5 - 11.0 thou/cu mm 05/16/2023 9:55 AM CDT [facility] RED BLOOD COUNT 4.74 4.00 - 5.20 mil/cu mm 05/16/2023 9:55 AM CDT [facility] [employer] HEMOGLOBIN 12.7 12.0 - 16.0 g/dL 05/16/2023 9:55 AM CDT [facility] HEMATOCRIT 41.5 33.0 - 51.0 % 05/16/2023 9:55 AM CDT [facility] MCV 88 80 - 100 fL 05/16/2023 9:55 AM CDT [facility] MCH 26.8 26.0 - 34.0 pg 05/16/2023 9:55 AM CDT [facility] MCHC 30.6(L) 32.0 - 36.0 g/dL 05/16/2023 9:55 AM CDT [facility] RDW 17.4(H) 11.5 - 15.5 % 05/16/2023 9:55 AM CDT [facility] PLATELET COUNT 373 140 - 440 thou/cu mm 05/16/2023 9:55 AM CDT [facility] MPV 11.8(H) 6.5 - 11.0 fL 05/16/2023 9:55 AM CDT [facility] NRBC 0.0 % 05/16/2023 9:55 AM CDT [facility] ABS NRBC 0.0 thou /cu mm 05/16/2023 9:55 AM CDT [facility] Blood BLOOD SPECIMEN / Unknown Butterfly / Unknown 05/16/2023 8:59 AM CDT 05/16/2023 9:39 AM CDT Martha Buckley MD HEMATOLOGY [facility] [address] [place] [address], * (ABNORMAL) BASIC METABOLIC PANEL (05/16/2023 8:59 AM CDT) SODIUM 138 136 - 145 mmol/L 05/16/2023 10:12 AM CDT [facility] POTASSIUM 4.5 3.5 - 5.1 mmol/L 05/16/2023 10:12 AM CDT [facility] CHLORIDE 100 98 - 107 mmol/L 05/16/2023 10:12 AM CDT [facility] CO2,TOTAL 27 22 - 29 mmol/L 05/16/2023 10:12 AM CDT [facility] ANION GAP 11 5 - 18 05/16/2023 10:12 AM T [facility] GLUCOSE 126(H) 70 - 99 mg/dL 05/16/2023 10:12 AM CDT [facility] CALCIUM 9.8 8.8 - 10.2 mg/dL 05/16/2023 10:12 AM T [facility] BUN 31(H) 8 - 23 mg/dL 05/16/2023 10:12 AM T [facility] CREATININE 1.19(H) 0.50 - 0.90 mg/dL 05/16/2023 10:12 AM T [facility] BUN/CREAT RATIO 26(H) 10 - 20 10:12 AM T [facility] eGFR 50(L) >90 mL/min/1.7 3m2 05/16/2023 10:12 AM T [facility] Comment:As of 2021, eG FR is calculated by the CKD-EPI creatinine equation without race adjustment. ??eGFR can be influenced by muscle mass, exercise, and diet. ??The reported eGFR is an estimation only and is only applicable if the renal function is stable. Blood BLOOD SPECIMEN / Unknown Butterfly / Unknown 05/16/2023 8:59 AM CDT 05/16/2023 9:39 AM CDT Martha Buckley MD [facility] [address] [place] [address], [place] * (ABNORMAL) ARTERIAL BLOOD GAS (05/16/2023 4:28 AM CDT) PH, ARTERIAL 7.40 7.35 - 7.45 05/16/2023 4:39 AM CDT [facility] PCO2, ARTERIAL 45 32 - 45 mmHg 05/16/19 4:39 AM CDT [facility] PO2, ARTERIAL 108 83 - 108 mmHg 05/16/2023 4:39 AM CDT [facility] HCO3, ARTERIAL 28 21 - 28 mmol/L 05/16/2023 4:39 AM CDT [facility] BASE EXCESS, ARTERIAL 2.5 -2.0 - 3.0 05/16/2023 4:39 AM CDT [facility] O2 SATURATION, ARTERIAL 99(H) 94 - 98 % 05/16/2023 4:39 AM CDT [facility] INSPIRED O2 100 05/16/2023 4:39 AM T [facility] Comment:Unit of Measure: Lit ers (L) if <=20; Percent (%) if >20 PATIENT TEMPERATURE 37.0 Degrees C 05/16/2023 4:39 AM CDT [facility] Blood ARTERIAL BLOOD SPECIMEN / Unknown Arterial / Unknown 05/16/2023 4:28 AM CDT 05/16/2023 4:36 AM CDT Omi Nur MD CHEMISTRY [facility] [address] [place] [phone], from Last 3 Months Advance Directives * Full Code (Latest Code Status on File) Date Activated Date Inactivated Comments 05/15/2023 7:34 PM Question Answer Comments Code Status Discussion: Reviewed Preferences Care Teams Program Evaluation Consultant Relationship Specialty Start Date End Date Ciara Jon MD [address] [place], [place] [id number] PCP - General Internal Medicine 01/01/22
== END 2023-05-14 10:16 | disposition home or self-care (01) ==
LOC: AMB 05-17 08:44
PROVIDERS: PCP Internal Medicine; Visit Provider Family Medicine
DX: R06.09 Other forms of dyspnea (principal)
CPT/HCPCS: A0425; A0427

== ENCOUNTER 2023-05-14 10:52 | Inpatient (IN) | payer MEDICARE, SELFPAY ==
[2023-05-14] VITALS (53 sets, daily range): BP systolic 124–143; BP diastolic 58–75; PULSE 96–115; RESP 7–32; TEMP 36.4–36.6; O2SAT 81–91; BMI 86.1; BMI 47.5
--- NOTE | 2023-05-14 11:23 | XR_ITS ---
Patient: KADE STRICKLAND Facility:?[facility] Patient ID:?[id number] Site Patient ID:?[id number]. Site :?[id number] Study:?XRay-Chest PORTABLE-05/14/2023 11:53:12 AM Ordering Physician:HERNAN Final Report: Indication: COPD, hypoxia. Technique: One view(s) of the chest. Comparison: CT and radiographs 12/15/2022. Findings: There is a new large right pneumothorax with mild depression of the right diaphragm and asymmetric widening of the right ribs spaces compared to the left concerning for tension. There may be slight leftward mediastinal shift; however, the patient is rotated to the right which makes evaluation for mediastinal shift challenging. Near complete collapse of the right lung. Left lung is well inflated without focal consolidation, pleural effusion or pneumothorax. Bones and soft tissues are unchanged with posttraumatic deformity of the left 6th rib. Impression: Large right pneumothorax with findings concerning for tension. Findings were discussed via telephone with Dr. Reyes on 05/14/2023 at 12:11 p.m. Dictated by Tiny Tabor MD @ 05/14/2023 12:13:35 PM Signed by:?Tiny Tabor MD @05/14/2023 12:13:35 PM (Electronic Signature)
--- NOTE | 2023-05-14 11:25 | ED.SOB ---
HPI - SOB/Dyspnea General Chief Complaint: Shortness of Breath/Dyspnea Stated Complaint: shortness of breath Time Seen by Provider: 05/14/23 10:59 History of Present Illness HPI Narrative: This 67-year-old female comes in by ambulance because of shortness of breath. She has a history of COPD and a long history of tobacco abuse. She has quit smoking. She does use albuterol and preventative inhalers and nebulizer treatments. She began to feel more short of breath last night. She has been taking her medications as prescribed. She does not report any fever or symptoms of infection. She was noted by EMS to have oximetry around 80% on room air. She does have oxygen at home to be used as needed at around 2 liters/minute. She states that her typical oximetry is around 88-90% with her COPD history. She is currently on 4 L nasal cannula oxygen and saturating at 88%. She does have some tachycardia currently. Related Data Home Medications Medication Instructions Recorded Confirmed tiotropium bromide 18 mcg capsule 1 cap inhalation DAILY 12/16/22 05/14/23 with inhalation device (Spiriva with HandiHaler) apixaban 5 mg tablet (Eliquis) 5 mg PO BID 05/14/23 05/14/23 Previous Rx's Medication Instructions Recorded albuterol sulfate 2.5 mg/3 mL 2.5 mg (3 mL) inhalation Q6H PRN 02/07/22 (0.083 %) solution for nebulization bronchospasm #75 mL fluticasone 250 mcg-salmeterol 50 1 inh inhalation BID #60 ea 11/21/22 mcg/dose blistr powdr for inhalation (Advair Diskus) levothyroxine 150 mcg tablet 150 mcg PO DAILY #90 tabs 12/30/22 lisinopril 20 2 tab PO HS #180 tabs 12/30/22 mg-hydrochlorothiazide 25 mg tablet nicotine (polacrilex) 4 mg gum 4 mg buccal Q4-8H PRN nicotine 12/30/22 cravings #100 ea albuterol sulfate 90 mcg/actuation 2 - 4 puff inhalation Q2-4H PRN 01/30/23 aerosol inhaler (Proventil HFA) shortness of breath or wheezing #8.5 grams ipratropium 0.5 mg-albuterol 3 mg 3 ml inhalation QID PRN for 01/30/23 (2.5 mg base)/3 mL nebulization dyspnea #180 mL soln azithromycin 250 mg tablet 250 mg PO 3XW #36 tabs 03/05/23 Allergies Allergy/AdvReac Type Severity Reaction Status Date / Time No Known Drug Allergies Allergy Verified 12/30/22 08:32 Review of Systems Status of ROS: Reports: 10 or more systems reviewed and unremarkable except as noted in History and below Narrative: Constitutional: No fevers, no weight gain or loss. Eyes: No discharge. No vision changes. HENT: No congestion, no sore throat, no ear pain. Cardiovascular: No chest pain, no palpitations. Respiratory: Shortness of breath as described above. Gastrointestinal: No abdominal pain, no vomiting, no diarrhea. Genitourinary: No dysuria, no hematuria. Musculoskeletal: Normal range of motion. Skin: No rashes, no pruritis. Neurological: No dizziness, weakness, sensory change, speech change. Endo/Heme/Allergies: No bruising or bleeding. No polydipsia. Pysch: no suicidality, no anxiety, no insomnia. All other systems reviewed and are negative. PFSH PFSH Surgical History History of tubal ligation (03/23/12) ?Z98.51 - Tubal ligation status (ICD-10) Family History Son Healthy adult Daughter Healthy adult Social History (Updated 11/21/22 @ 15:50 by Eloise Foy ~ [facility]) Narrative: Does not know family history because she was adopted. Living on the main level in a home with her daughter. Has been cutting down smoking over the past two months, now down to 1/2 ppd. Rarely drinks alcohol. Occassional use of marajuana gummies at night. No other recreational drugs. FULL CODE What is your current living situation?: I presently have a place to live Problems where you live: no known problems Problems where you live details: none In the past 12 months, utilities in danger of being shut off: no In past 12 months, lack of transportation kept you from medical appts, meetings, work, or getting things needed for daily living: no In the past 12 mos, have been you worried that your food would run out before you had money to buy more?: never true In the past 12 mos, the food you bought just didn't last and you didn't have money to buy more?: never true Smoking Status: Former smoker What tobacco products do you use: cigarettes Smoking packs per day: 0.5 Smoking cigarettes per day: 10.0 Years smoked: 50 Smoking pack-years: 25.00 Smoking quit date/years: <= 15 years ago Do you use any of these nicotine containing products: None Second hand tobacco smoke exposure: Yes How often do you have a drink containing alcohol: monthly or less Alcohol type: hard liquor Alcohol type details: will have the occasional drink with dinner sometimes How often do you have six or more drinks on one occasion: Never AUDIT-C Alcohol total score: 1 Non-prescribed substance use: denies use Caffeine: Yes (coffee, soda, energy drinks) How often does anyone, including family, friends and others, physically hurt you: never How often does anyone, including family, friends and others, insult or talk down to you: never How often does anyone, including family, friends and others, threaten you with harm: never How often does anyone, including family, friends and others, scream or curse at you: never Little interest or pleasure in doing things: not at all Feeling down, depressed, or hopeless: not at all service: No Exam Narrative: Exam Narrative: Constitutional: Well-developed, well-nourished, no acute distress. HEENT: Normocephalic, atraumatic. Neck: Normal range of motion. Nontender. Supple. Heart: Regular. No murmurs. Tachycardia. Intact distal pulses. Lungs: Clear to auscultation. Decreased air movement. No chest discomfort. Use of accessory muscles for breathing. Abdomen: Normal bowel sounds. Nontender. No rebound tenderness. Genitalia: Deferred. Back: No midline tenderness. Normal range of motion. Extremities: Normal range of motion. No injury. Skin: Intact. No rash. Warm. No erythema or pallor. Neurologic: No altered sensation. No weakness. Alert and oriented. Psychiatric: No suicidality. No anxiety or depression. No insomnia. Nursing notes and vitals signs are reviewed. Const: Vital Signs, click to edit/add: Vital Signs - 24 hr 05/14/23 10:54 Temperature 97.6 F Pulse Rate [Pulse Oximeter] 115 H Respiratory Rate 32 H Blood Pressure [Ri ght Upper Arm] 143/75 H Pulse Oximetry 88 Oxygen Delivery Me thod Nasal Cannula Course Vital Signs Vital signs: Initial Vital Signs Temperature 97.6 F 05/14/23 10:54 Temperature Source Temporal Artery Scan 05/14/23 10:54 Pulse Rate 115 H 05/14/23 10:54 Respiratory Rate 32 H 05/14/23 10:54 Respiratory Effort Labored, Short of Breath, Pursed Lip, Tripoding, Shortness of Breath at Re 05/14/23 10:54 Respiratory Depth Deep 05/14/23 10:54 Respiratory Pattern Tachypnea 05/14/23 10:54 Blood Pressure 143/75 H 05/14/23 10:54 Blood Pressure Mean 97 05/14/23 10:54 Blood Pressure Position Sitting 05/14/23 10:54 Pulse Oximetry 88 05/14/23 10:54 Oxygen Delivery Method Nasal Cannula 05/14/23 10:54 Vital Signs Temperature 97.6 F 05/14/23 10:54 Pulse Rate 115 H 05/14/23 10:54 Respiratory Rate 32 H 05/14/23 10:54 Blood Pressure 143/75 H 05/14/23 10:54 Pulse Oximetry 88 05/14/23 10:54 Oxygen Delivery Method Nasal Cannula 05/14/23 10:54 Temperature 97.6 F 05/14/23 10:54 Pulse Rate 115 H 05/14/23 10:54 Respiratory Rate 32 H 05/14/23 10:54 Blood Pressure 143/75 H 05/14/23 10:54 Pulse Oximetry 88 05/14/23 10:54 Oxygen Delivery Method Nasal Cannula 05/14/23 10:54 Medications Administered Medications: Discontinued Medications Generic Name Dose Route Start Last Admin Trade Name Freq PRN Reason Stop Dose Admin Albuterol/Ipratropium 1 neb 05/14/23 11:23 05/14/23 11:35 Iprat-Albut 0.5-2.5 Mg/3 Ml Neb IH 05/14/23 11:24 1 neb ONCE ONE Administration Hydromorphone HCl 0.5 mg 05/14/23 14:53 05/14/23 15:01 Hydromorphone 0.5 Mg/0.5 Ml Inj IVP 05/14/23 14:54 0.5 mg ONCE ONE Administration Methylprednisolone Sodium Succinate 125 mg 05/14/23 11:23 05/14/23 11:35 Methylprednisolone Sod Succ 62.5 Mg/Ml (125) IVP 05/14/23 11:24 125 mg ONCE ONE Administration Propofol 200 mg 05/14/23 12:57 05/14/23 14:52 Propofol 10 Mg/Ml Inj IVP 05/14/23 12:58 Not Given ONCE ONE MDM - SOB/Dyspnea MDM Narrative Medical decision making narrative: This patient has history of COPD and states that she denies using tobacco but respiratory therapist states that she still does smoke but does not admit to it. She comes in with onset of hypoxia occurring last night. She has used inhalers without much relief. She arrives with oximetry at around 80% on room air. With oxygen by nasal cannula at 4 L she returned to her baseline of 88-90% oximetry. The patient did receive an IV dose of dexamethasone 125 mg. I did order a chest x-ray and labs. Chest x-ray returns with obvious large pneumothorax on the right with borderline tension pneumothorax. Patient does not show any external signs of trachea deviation or acute respiratory distress but her lung on the right side is almost completely collapsed. I contacted the surgeon on-call, Dr. Gomez, who made arrangements for placement of a chest tube. Anesthesiology was involved also. The patient did receive sedation administered by Anesthesia. A chest tube was placed the lung did re-expand. Chest tube is placed properly as seen on repeat x-ray. I spoke with the hospitalist owner consulting engineer, Dr. Hahn, who arranged for admission into the hospital. Surgeon on-call follow with this patient also. Lab Data Labs: Lab Results 05/14/23 05/14/23 Range/Units 11:26 11:35 WBC 13.83 H (4.50-11.00) K/uL RBC 5.04 (4.00-5.20) m/uL Hgb 13.6 (12.0-16.0) gm/dL Hct 44.4 (33.0-51.0) % MCV 88 (80-100) fL MCH 27 (26-34) pg MCHC 31 L (32-36) gm/dL RDW Coeff of Rick 17.3 H (11.5-15.5) % Plt Count 435 (140-440) K/uL Neut % (Auto) 76.2 H (42.0-72.0) % Lymph % (Auto) 15.7 L (20-44) % Buchanan % (Auto) 6.4 (0.0-11.0) % Eos % (Auto) 1.2 (0.0-7.0) % Baso % (Auto) 0.4 (0.0-3.0) % Neut # (Auto) 10.50 H (1.7-7.0) K/uL Lymph # (Auto) 2.20 (0.90-2.90) K/uL Buchanan # (Auto) 0.90 (0.00-0.90) K/UL Eos # (Auto) 0.20 (0.00-0.50) K/uL Baso # (Auto) 0.10 (0.00-0.30) K/uL Abs Immat Gran (auto) 0.00 (0.00-0.30) K/uL Imm/Tot Granulo (auto) 0.1 % Sodium 142 (135-149) mmol/L Potassium 4.1 (3.6-5.1) mmol/L Chloride 106 (96-114) mmol/L Carbon Dioxide 29 (20-32) mmol/L Anion Gap 7 (7-15) mEq/L BUN 23 (7-30) mg/dL Creatinine 1.1 (0.5-1.5) mg/dL Estimated Creat Clear 35.16 Estimated GFR 55 ml/min Glucose 147 H (60-115) mg/dL Calcium 10.0 (8.4-10.6) mg/dL SARS-CoV-2 (PCR) Negative SARS-CoV-2 (Negative) Influenza Type A (PCR) Negative PCR FLU A (Negative) Influenza Type B (PCR) Negative PCR FLU B (Negative) RSV (PCR) Negative PCR RSV (Negative) Imaging Data Chest x-ray: Radiologist's impression: Large right pneumothorax with findings concerning for tension. ECG Data Attestation: I personally reviewed and interpreted this ECG as follows: Interpretation: Sinus tachycardia. Rate is 114 beats per minute. There are no specific ST or T-wave abnormalities. Discharge Plan Discharge Clinical Impression: Pneumothorax Patient Disposition: Admitted As Inpatient Condition: Improved Prescriptions: No Action albuterol sulfate 2.5 mg /3 mL (0.083 %) solution for nebulization 2.5 mg inhalation Q6H PRN (Reason: bronchospasm) Qty: 75 5RF fluticasone propion-salmeterol [Advair Diskus] 250-50 mcg/dose blister with device 1 inh inhalation BID Qty: 60 11RF nicotine (polacrilex) 4 mg gum 4 mg buccal Q4-8H PRN (Reason: nicotine cravings) Qty: 100 8RF lisinopril-hydrochlorothiazide 20-25 mg tablet 2 tab PO HS Qty: 180 3RF tiotropium bromide [Spiriva with HandiHaler] 18 mcg capsule, w/inhalation device 1 cap inhalation DAILY Rx Instructions: puncture 1 cap using device; one dose = 2 inhalations Eliquis 5 mg tablet 5 mg PO BID levothyroxine 150 mcg tablet 150 mcg PO DAILY Qty: 90 3RF albuterol sulfate [Proventil HFA] 90 mcg/actuation HFA aerosol inhaler 2 - 4 puff inhalation Q2-4H PRN (Reason: shortness of breath or wheezing) Qty: 8.5 11RF ipratropium-albuterol 0.5 mg-3 mg(2.5 mg base)/3 mL solution for nebulization 3 ml inhalation QID PRN (Reason: for dyspnea) Qty: 180 10RF azithromycin 250 mg tablet 250 mg PO 3XW Qty: 36 3RF Follow Up/Referrals: Ciara Jon MD [Primary Care Provider] -
[2023-05-14] MEDS: IPRAT-ALBUT 0.5-2.5 MG/3 ML NEB 1 NEB IH ×3 (11:35→21:59)
[2023-05-14] MEDS: METHYLPREDNISOLONE SOD SUCC 62.5 MG/ML (125) 125 MG IVP (11:35)
[2023-05-14 11:45] LABS: Basophils Percent Auto 0.4 % (0.0-3.0); Eosinophils Percent Auto 1.2 % (0.0-7.0); Hematocrit 44.4 % (33.0-51.0); Hemoglobin* 13.6 gm/dL (12.0-16.0); Immature Granulocytes Pct Auto 0.1 %; Lymphocytes Percent Auto 15.7 % (20-44); Mean Corpuscular HGB Conc 31 gm/dL (32-36); Mean Corpuscular Hemoglobin 27 pg (26-34); Mean Corpuscular Volume 88 fL (80-100); Monocytes Percent Auto 6.4 % (0.0-11.0); Neutrophils Percent Auto 76.2 % (42.0-72.0); Platelet Count* 435 K/uL (140-440); RDW Coefficient of Variation % 17.3 % (11.5-15.5); Red Blood Count 5.04 m/uL (4.00-5.20); White Blood Count* 13.83 K/uL (4.50-11.00)
[2023-05-14 11:49] LABS: Slide Review Reflex No
[2023-05-14 11:55] LABS: Chloride* 106 mmol/L (96-114); Potassium* 4.1 mmol/L (3.6-5.1); Sodium* 142 mmol/L (135-149)
[2023-05-14 11:58] LABS: Creatinine* 1.1 mg/dL (0.5-1.5); Est. Creatinine Clearance* 35.16; Estimated Glomerular Filt Rate 55 ml/min
[2023-05-14 11:59] LABS: Anion Gap 7 mEq/L (7-15); Blood Urea Nitrogen* 23 mg/dL (7-30); Carbon Dioxide* 29 mmol/L (20-32); Glucose* 147 mg/dL (60-115)
[2023-05-14 12:08] LABS: PCR FLU A Negative PCR FLU A (Negative); PCR FLU B Negative PCR FLU B (Negative); PCR RSV Negative PCR RSV (Negative); SARS PCR* Negative SARS-CoV-2 (Negative)
--- NOTE | 2023-05-14 13:28 | XR_ITS ---
Patient: KADE STRICKLAND Facility:?[facility] Patient ID:?[id number] Site Patient ID:?[id number]. Site :?[id number] Study:?XRay-Chest 1V PORTABLE-05/14/2023 1:50:04 PM Ordering Physician:HERNAN Final Report: Indication: Chest tube Technique: Chest 1 view Comparison: Chest x-ray 05/14/2023 Findings/Impression: Cardiovascular and mediastinum: Normal heart size with mild aortic tortuosity. Lungs and pleural space: Interval placement of a right-sided chest tube with re- expansion of the right lung. No definite pneumothorax. Bandlike atelectasis at the level of the right midlung. Bones and soft tissues: Subcutaneous air along the right chest wall. Old left rib fracture. Dictated by Tereso Gonzalez MD @ 05/14/2023 2:01:32 PM Signed by:?Tereso Gonzalez MD @05/14/2023 2:01:32 PM (Electronic Signature)
[2023-05-14] MEDS: HYDROmorphone 0.5 mg/0.5 ml inj IVP (15:01)
--- NOTE | 2023-05-14 15:21 | PM.IMHP1 ---
Hospitalist- H&P: HPI History of Present Illness Date Seen: 05/14/23 Chief complaint: shortness of breath Narrative: Erika Mccoy is a 67 year old female with severe O2 dependent COPD, recent pulmonary embolism and pneumonia presents with acute onset of dyspnea and right-sided chest pain starting last night. Patient reports she was in her usual state of health yesterday. Then last night she had a severe coughing episode and after that felt very dyspneic. She never really recovered her shortness of breath. She is on home oxygen at 2 L per nasal cannula with O2 sats typically in the 88-90% range. She was requiring 4 L per nasal cannula to maintain her O2 sats when the paramedics arrived and found her O2 sat at 80%. She has not had a fever or recent respiratory illness. She is having right-sided chest pain that occurs when she coughs. She was hospitalized here December 2022 at that time diagnosed with right upper lobe pneumonia, possible right upper lobe mass and pulmonary emboli. She was seen to have large right upper lobe blebs in addition to her right upper lobe mass and pulmonary emboli. She remains on anticoagulation with apixaban and reports compliance with this. For her COPD she uses her Advair and Spiriva inhalers and rescue inhaler or nebulizers with albuterol. She reports her breathing has been relatively stable at baseline recently. In January she saw a pattern setter in [place] regarding her chronic lung disease and her right upper lobe mass. She is not aware that any further plans to evaluate or treat this were initiated. In the emergency department she was found to have a large right pneumothorax. Chest tube was placed. There is a persistent leak since the chest tube placement. She reports her breathing is now better but she is having a a pleuritic chest pain with deep breaths and coughing. Review of Systems Narrative: She has had no other chest pain other than her current chest tube related chest pain. She has not had fever, cold, cough, new shortness of breath. She reports no change in appetite, nausea, vomiting, abdominal pain, bowel or bladder problems. She is not aware of new swelling in her legs. [facility] Medical History (Updated 05/14/23 @ 15:47 by Ron Hahn MD) Pneumothorax ?J93.9 - Pneumothorax, unspecified (ICD-10) History of pulmonary embolism ?Z86.711 - Personal history of pulmonary embolism (ICD-10) Tobacco dependence with current use ?F17.200 - Nicotine dependence, unspecified, uncomplicated (ICD-10) Pulmonary nodules ?R91.8 - Other nonspecific abnormal finding of lung field (ICD-10) Severe chronic obstructive pulmonary disease ?J44.9 - Chronic obstructive pulmonary disease, unspecified (ICD-10) Morbid obesity with body mass index (BMI) of 40.0 or higher ?E66.01 - Morbid (severe) obesity due to excess calories (ICD-10) Osteopenia ?M85.80 - Other specified disorders of bone density and structure, unspecified site (ICD-10) Hypothyroidism (03/23/12) ?E03.9 - Hypothyroidism, unspecified (ICD-10) Essential hypertension (03/23/12) ?I10 - Essential (primary) hypertension (ICD-10) Surgical History History of tubal ligation (03/23/12) ?Z98.51 - Tubal ligation status (ICD-10) Family History Son Healthy adult Daughter Healthy adult Social History (Updated 05/14/23 @ 15:40 by Ron Hahn MD) Narrative: Does not know family history because she was adopted. She lives outside of [place]. Living on the main level in a home with her daughter. Has been cutting down smoking over the past two months, now down to occasional smoking. Rarely drinks alcohol. Occassional use of marajuana gummies at night. No other recreational drugs. Code status is DNR. Her daughter, Nicky, and her son, Norm, are healthcare power of senior trial attorney. Daughter lives with her. Son lives next door. What is your current living situation?: I presently have a place to live Problems where you live: no known problems Problems where you live details: none In the past 12 months, utilities in danger of being shut off: no In past 12 months, lack of transportation kept you from medical appts, meetings, work, or getting things needed for daily living: no In the past 12 mos, have been you worried that your food would run out before you had money to buy more?: never true In the past 12 mos, the food you bought just didn't last and you didn't have money to buy more?: never true Smoking Status: Former smoker What tobacco products do you use: cigarettes Smoking packs per day: 0.5 Smoking cigarettes per day: 10.0 Years smoked: 50 Smoking pack-years: 25.00 Smoking quit date/years: <= 15 years ago Do you use any of these nicotine containing products: None Second hand tobacco smoke exposure: Yes How often do you have a drink containing alcohol: monthly or less Alcohol type: hard liquor Alcohol type details: will have the occasional drink with dinner sometimes How often do you have six or more drinks on one occasion: Never AUDIT-C Alcohol total score: 1 Non-prescribed substance use: denies use Caffeine: Yes (coffee, soda, energy drinks) How often does anyone, including family, friends and others, physically hurt you: never How often does anyone, including family, friends and others, insult or talk down to you: never How often does anyone, including family, friends and others, threaten you with harm: never How often does anyone, including family, friends and others, scream or curse at you: never Little interest or pleasure in doing things: not at all Feeling down, depressed, or hopeless: not at all service: No Meds Home Medications and Allergies Home Medications Medication Instructions Recorded Confirmed Type tiotropium bromide 18 mcg capsule 1 cap inhalation DAILY 12/16/22 05/14/23 History with inhalation device (Spiriva with HandiHaler) apixaban 5 mg tablet (Eliquis) 5 mg PO BID 05/14/23 05/14/23 History Allergies Allergy/AdvReac Type Severity Reaction Status Date / Time No Known Drug Allergies Allergy Verified 12/30/22 08:32 Exam Narrative: Exam Narrative: She is alert and appears in mild respiratory distress. She gives her own history. She has increased work and rate of breathing. Oropharynx with small airway. Neck is supple without mass or adenopathy. Respirations with marked diminished breath sounds bilaterally. Status post chest tube placement I do not detect a definite asymmetry to breath sounds. Occasional expiratory wheezes and crackles. Cardiovascular: S1, S2, regular tachycardia. Abdomen: Bowel sounds active. Abdomen is soft without tenderness or mass. Extremities without edema. Intact pedal pulses. She moves all 4 extremities well. No rash. Const: Vital Signs, click to edit/add: Vital Signs - 24 hr 05/14/23 10:54 Temperature 97.6 F Pulse Rate [Pulse Oximeter] 115 H Respiratory Rate 32 H Blood Pressure [Ri ght Upper Arm] 143/75 H Pulse Oximetry 88 Oxygen Delivery Me thod Nasal Cannula Documenting provider has reviewed patient's vital signs: yes Hospitalist - H&P: Result Labs Labs: Short CBC 05/14/23 Range/Units 11:35 WBC 13.83 H (4.50-11.00) K/uL Hgb 13.6 (12.0-16.0) gm/dL Hct 44.4 (33.0-51.0) % Plt Count 435 (140-440) K/uL BMP 05/14/23 11:35 Sodium 142 Potassium 4.1 Chloride 106 Carbon Dioxide 29 BUN 23 Creatinine 1.1 Glucose 147 H Calcium 10.0 Assessment and Plan Assessment and plan (1) Pneumothorax: Problem comment: Most likely related to ruptured bleb from COPD. Chest tube in place. Patient is at risk for persistent leak. Dr. Gomez to assist with management. Status: Acute (2) Pulmonary nodules: Problem comment: - CT angiogram, 12/15/2022: Right upper lobe patchy consolidation. Right hilar soft tissue fullness may be related to adenopathy or possible mass. Irregular left upper lobe 1.3 x 1.7 centimeter bilobed nodule. 7 millimeter left lower lobe nodules. Findings could represent infectious etiologies however findings are worrisome for malignancy. Has seen pulmonology with unclear plan for follow-up Status: Acute (3) Tobacco dependence with current use: Problem comment: Encourage complete abstinence. Nicotine replacement. Status: Acute (4) Morbid obesity with body mass index (BMI) of 40.0 or higher: Status: Acute (5) Essential hypertension: Problem comment: Dxed around 2009, on medication lisinopril 20 mg with hydrochlorothiazide 25 mg, 2 tabs at at bedtime Status: Acute (6) History of pulmonary embolism: Problem comment: noted by CT 01/02, on apixaban/Eliquis since 01/02 Status: Acute (7) Hypothyroidism: Problem comment: on levothyroxine Status: Acute (8) Severe chronic obstructive pulmonary disease: Problem comment: Dxed officially with moderate to severe COPD by PFTs at [facility] 02/27/22, with multiple exacerbations through Winter [id number], Spiriva started 12/02. No formal Pulmonology consult, s/p pneumonia 01/02 (and PE and COPD exacerbation). Monitor for CO2 retention. Supplemental oxygen. Systemic prednisone for possible exacerbation at this time. Status: Acute (9) COPD exacerbation: Problem comment: Inhaled bronchodilators and prednisone. Monitor for infection. Status: Acute Plan Patient is admitted to the hospital for management of pneumothorax with chest tube drainage. Also management of COPD exacerbation and acute on chronic hypoxic respiratory failure. Total Time Spent Total Time Spent: Total time spent today is 75 minutes, 50 minutes in coordination of care and review of past records and discussion with patient and other providers evaluation management of pneumothorax and COPD
[2023-05-14 16:13] LABS: HCO3 VBG 27 mmol/L (21-28); PCO2 VBG 43 mmHG (40-50); PO2 VBG 36.8 mmHG (25-47); pH VBG 7.411 (7.32-7.43)
--- NOTE | 2023-05-14 17:25 | P.GSCN_ITS ---
History of Present Illness Consult details Date Seen: 05/14/23 Consult date: 05/14/23 Narrative: Patient is a 67-year-old female, with a history of severe COPD, who presented to the emergency department with evidence of a collapsed right lung. She reports that last night she had a coughing fit and worsening shortness of breath. She does intermittently use oxygen at home and has been using it since her coughing fit yesterday. She does take an inhaler every day and is currently on prednisone. She has a history of pulmonary emboli on apixaban. A CTA done several months earlier ( 12/15/2022) shows a large blood of the right upper lobe with COPD like changes. She has never required a chest tube before. She does continue to smoke and drink alcohol daily. During my initial examination patient with significant shortness of breath and lip pursing, unable to perform complete sentences. She reports some pain with deep inspiration on the right side. Review of Systems Status of ROS: Reports: unobtainable due to medical condition ( Patient in acute distress) [facility] Medical History (Updated 05/14/23 @ 15:47 by Ron Hahn MD) Pneumothorax ?J93.9 - Pneumothorax, unspecified (ICD-10) History of pulmonary embolism ?Z86.711 - Personal history of pulmonary embolism (ICD-10) Tobacco dependence with current use ?F17.200 - Nicotine dependence, unspecified, uncomplicated (ICD-10) Pulmonary nodules ?R91.8 - Other nonspecific abnormal finding of lung field (ICD-10) Severe chronic obstructive pulmonary disease ?J44.9 - Chronic obstructive pulmonary disease, unspecified (ICD-10) Morbid obesity with body mass index (BMI) of 40.0 or higher ?E66.01 - Morbid (severe) obesity due to excess calories (ICD-10) Osteopenia ?M85.80 - Other specified disorders of bone density and structure, unspecified site (ICD-10) Hypothyroidism (03/23/12) ?E03.9 - Hypothyroidism, unspecified (ICD-10) Essential hypertension (03/23/12) ?I10 - Essential (primary) hypertension (ICD-10) Surgical History History of tubal ligation (03/23/12) ?Z98.51 - Tubal ligation status (ICD-10) Family History Son Healthy adult Daughter Healthy adult Social History (Updated 05/14/23 @ 15:40 by Ron Hahn MD) Narrative: Does not know family history because she was adopted. She lives outside of [place]. Living on the main level in a home with her daughter. Has been cutting down smoking over the past two months, now down to occasional smoking. Rarely drinks alcohol. Occassional use of marajuana gummies at night. No other recreational drugs. Code status is DNR. Her daughter, Aliza noguera, and her son, Norm, are healthcare power of document review attorney. Daughter lives with her. Son lives next door. What is your current living situation?: I presently have a place to live Problems where you live: no known problems Problems where you live details: NA In the past 12 months, utilities in danger of being shut off: no In past 12 months, lack of transportation kept you from medical appts, meetings, work, or getting things needed for daily living: no In the past 12 mos, have been you worried that your food would run out before you had money to buy more?: never true In the past 12 mos, the food you bought just didn't last and you didn't have money to buy more?: never true Highest level of school completed/degree received: high school graduate Smoking Status: Former smoker What tobacco products do you use: cigarettes Smoking packs per day: 0.5 Smoking cigarettes per day: 10.0 Years smoked: 50 Smoking pack-years: 25.00 Smoking quit date/years: <= 15 years ago Do you use any of these nicotine containing products: None Second hand tobacco smoke exposure: Yes How often do you have a drink containing alcohol: monthly or less Alcohol type: hard liquor Alcohol type details: will have the occasional drink with dinner sometimes How often do you have six or more drinks on one occasion: Never AUDIT-C Alcohol total score: 1 Non-prescribed substance use: denies use Caffeine: Yes (coffee, red bull) How often does anyone, including family, friends and others, physically hurt you : never How often does anyone, including family, friends and others, insult or talk down to you: never How often does anyone, including family, friends and others, threaten you with harm: never How often does anyone, including family, friends and others, scream or curse at you: never Little interest or pleasure in doing things: not at all Feeling down, depressed, or hopeless: not at all service: No Meds Home Medications and Allergies Home Medications Medication Instructions Recorded Confirmed Type tiotropium bromide 18 mcg capsule 1 cap inhalation DAILY 12/16/22 05/14/23 History with inhalation device (Spiriva with HandiHaler) apixaban 5 mg tablet (Eliquis) 5 mg PO BID 05/14/23 05/14/23 History Allergies Allergy/AdvReac Type Severity Reaction Status Date / Time No Known Drug Allergies Allergy Verified 12/30/22 08:32 Exam Narrative: Exam Narrative: general: Alert and oriented, some acute distress respiratory: Maintained on nasal cannula, decreased breath sounds throughout right chest. Patient tachypneic, use of accessory muscles and pursing of lips. CV: Tachycardia Const: Vital Signs, click to edit/add: Vital Signs - 24 hr 05/14/23 10:54 05/14/23 12:30 05/14/23 12:32 Temperature 97.6 F Pulse Rate [Pulse Oximeter] 115 H Respiratory Rate 32 H Blood Pressure [Le ft Arm] Blood Pressure [Ri ght Upper Arm] 143/75 H Pulse Oximetry 88 91 91 Oxygen Delivery Me thod Nasal Cannula Oxygen Flow Rate 05/14/23 12:40 05/14/23 12:50 05/14/23 13:00 Temperature Pulse Rate [Pulse Oximeter] Respiratory Rate Blood Pressure [Le ft Arm] Blood Pressure [Ri ght Upper Arm] Pulse Oximetry 91 90 90 Oxygen Delivery Me thod Oxygen Flow Rate 05/14/23 13:01 05/14/23 13:10 05/14/23 13:16 Temperature Pulse Rate [Pulse Oximeter] Respiratory Rate 15 Blood Pressure [Le ft Arm] Blood Pressure [Ri ght Upper Arm] Pulse Oximetry 89 85 L 85 L Oxygen Delivery Me thod Oxygen Flow Rate 05/14/23 13:20 05/14/23 13:22 05/14/23 13:27 Temperature Pulse Rate [Pulse Oximeter] Respiratory Rate 9 L 21 Blood Pressure [Le ft Arm] Blood Pressure [Ri ght Upper Arm] Pulse Oximetry 87 L 89 89 Oxygen Delivery Me thod Oxygen Flow Rate 05/14/23 13:30 05/14/23 13:32 05/14/23 13:37 Temperature Pulse Rate [Pulse Oximeter] Respiratory Rate 13 16 19 Blood Pressure [Le ft Arm] Blood Pressure [Ri ght Upper Arm] Pulse Oximetry 86 L 84 L 86 L Oxygen Delivery Me thod Oxygen Flow Rate 05/14/23 13:40 05/14/23 13:41 05/14/23 13:47 Temperature Pulse Rate [Pulse Oximeter] Respiratory Rate 9 L 7 L 18 Blood Pressure [Le ft Arm] Blood Pressure [Ri ght Upper Arm] Pulse Oximetry 87 L 81 L 83 L Oxygen Delivery Me thod Oxygen Flow Rate 05/14/23 13:50 05/14/23 13:52 05/14/23 13:56 Temperature Pulse Rate [Pulse Oximeter] Respiratory Rate 15 8 L 21 Blood Pressure [Le ft Arm] Blood Pressure [Ri ght Upper Arm] Pulse Oximetry 84 L 87 L 89 Oxygen Delivery Me thod Oxygen Flow Rate 05/14/23 14:00 05/14/23 14:01 05/14/23 14:07 Temperature Pulse Rate [Pulse Oximeter] Respiratory Rate 15 17 19 Blood Pressure [Le ft Arm] Blood Pressure [Ri ght Upper Arm] Pulse Oximetry 88 88 88 Oxygen Delivery Me thod Oxygen Flow Rate 05/14/23 14:10 05/14/23 14:11 05/14/23 14:16 Temperature Pulse Rate [Pulse Oximeter] Respiratory Rate 18 17 17 Blood Pressure [Le ft Arm] Blood Pressure [Ri ght Upper Arm] Pulse Oximetry 88 89 89 Oxygen Delivery Me thod Oxygen Flow Rate 05/14/23 14:20 05/14/23 14:22 05/14/23 14:27 Temperature Pulse Rate [Pulse Oximeter] Respiratory Rate 18 18 18 Blood Pressure [Le ft Arm] Blood Pressure [Ri ght Upper Arm] Pulse Oximetry 88 90 89 Oxygen Delivery Me thod Oxygen Flow Rate 05/14/23 14:30 05/14/23 14:32 05/14/23 14:36 Temperature Pulse Rate [Pulse Oximeter] Respiratory Rate 17 12 18 Blood Pressure [Le ft Arm] Blood Pressure [Ri ght Upper Arm] Pulse Oximetry 89 91 91 Oxygen Delivery Me thod Oxygen Flow Rate 05/14/23 14:40 05/14/23 14:42 05/14/23 14:47 Temperature Pulse Rate [Pulse Oximeter] Respiratory Rate 10 L 24 17 Blood Pressure [Le ft Arm] Blood Pressure [Ri ght Upper Arm] Pulse Oximetry 91 89 89 Oxygen Delivery Me thod Oxygen Flow Rate 05/14/23 14:50 05/14/23 14:52 05/14/23 14:56 Temperature Pulse Rate [Pulse Oximeter] Respiratory Rate 15 14 14 Blood Pressure [Le ft Arm] Blood Pressure [Ri ght Upper Arm] Pulse Oximetry 89 89 90 Oxygen Delivery Me thod Oxygen Flow Rate 05/14/23 15:00 05/14/23 15:01 05/14/23 15:06 Temperature Pulse Rate [Pulse Oximeter] Respiratory Rate 18 15 15 Blood Pressure [Le ft Arm] Blood Pressure [Ri ght Upper Arm] Pulse Oximetry 90 90 90 Oxygen Delivery Me thod Oxygen Flow Rate 05/14/23 15:10 05/14/23 15:11 05/14/23 15:12 Temperature Pulse Rate [Pulse Oximeter] Respiratory Rate 15 14 Blood Pressure [Le ft Arm] Blood Pressure [Ri ght Upper Arm] Pulse Oximetry 89 89 89 Oxygen Delivery Me thod Oxygen Flow Rate 05/14/23 15:16 05/14/23 15:20 05/14/23 15:22 Temperature Pulse Rate [Pulse Oximeter] Respiratory Rate 14 14 13 Blood Pressure [Le ft Arm] Blood Pressure [Ri ght Upper Arm] Pulse Oximetry 90 89 90 Oxygen Delivery Me thod Oxygen Flow Rate 05/14/23 15:27 05/14/23 15:27 05/14/23 15:30 Temperature Pulse Rate [Pulse Oximeter] Respiratory Rate 16 16 14 Blood Pressure [Le ft Arm] Blood Pressure [Ri ght Upper Arm] Pulse Oximetry 90 90 90 Oxygen Delivery Me thod Oxygen Flow Rate 05/14/23 15:31 05/14/23 16:16 Temperature 97.9 F Pulse Rate [Pulse Oximeter] 96 Respiratory Rate 13 20 Blood Pressure [Le ft Arm] 128/72 Blood Pressure [Ri ght Upper Arm] Pulse Oximetry 90 89 Oxygen Delivery Me thod Nasal Cannula Oxygen Flow Rate 3 Results Labs Labs: Abnormal lab results 05/14/23 Range/Units 11:35 WBC 13.83 H (4.50-11.00) K/uL MCHC 31 L (32-36) gm/dL RDW Coeff of Rick 17.3 H (11.5-15.5) % Neut % (Auto) 76.2 H (42.0-72.0) % Lymph % (Auto) 15.7 L (20-44) % Neut # (Auto) 10.50 H (1.7-7.0) K/uL Glucose 147 H (60-115) mg/dL Diabetes panel 05/14/23 Range/Units 11:35 Sodium 142 (135-149) mmol/L Potassium 4.1 (3.6-5.1) mmol/L Chloride 106 (96-114) mmol/L Carbon Dioxide 29 (20-32) mmol/L BUN 23 (7-30) mg/dL Creatinine 1.1 (0.5-1.5) mg/dL Glucose 147 H (60-115) mg/dL Calcium 10.0 (8.4-10.6) mg/dL Calcium panel 05/14/23 Range/Units 11:35 Calcium 10.0 (8.4-10.6) mg/dL Pituitary panel 05/14/23 Range/Units 11:35 Sodium 142 (135-149) mmol/L Potassium 4.1 (3.6-5.1) mmol/L Chloride 106 (96-114) mmol/L Carbon Dioxide 29 (20-32) mmol/L BUN 23 (7-30) mg/dL Creatinine 1.1 (0.5-1.5) mg/dL Glucose 147 H (60-115) mg/dL Calcium 10.0 (8.4-10.6) mg/dL Adrenal panel 05/14/23 Range/Units 11:35 Sodium 142 (135-149) mmol/L Potassium 4.1 (3.6-5.1) mmol/L Chloride 106 (96-114) mmol/L Carbon Dioxide 29 (20-32) mmol/L BUN 23 (7-30) mg/dL Creatinine 1.1 (0.5-1.5) mg/dL Glucose 147 H (60-115) mg/dL Calcium 10.0 (8.4-10.6) mg/dL All other labs normal. Imaging Chest x-ray: report reviewed and image reviewed General Surgery Procedures Chest Tube Chest Tube 1: Chest tube location: Mid-Axillary Chest Size of tube: 24 Procedure: placement Preperation: Yes sterile drapes applied ( chlorhexidine prep) and other Tube sutured to skin: Yes Sterile dressing applied: Yes Anesthesia: 1% Lidocaine Volume anesthetic (ml): 10 Incision made with: #11 blade Post procedure: sutured to skin Christine of air heard: Yes Tube Drainage: none Post procedure CXR?: Yes Patient tolerated procedure: Yes Additional comments: MAC anesthesia performed by ENVIRONMENTAL HEALTH TECHNOLOGIST for procedure. Progress Note:A&P Assessment and plan (1) Pneumothorax: Status: Acute Assessment and Plan: patient is a 67-year-old female with severe COPD and evidence of large right- sided pneumothorax. This is most likely secondary to a ruptured bleb. On review of the patient's CTA from 12/15/2022 there is evidence of a large bleb of the right upper lung. A chest tube was placed emergently in the ER with re-ex pansion. Patient tolerated procedure well. There is a persistent air leak on examination. Since placement patient has had some improvement in her shortness of breath and is now weaning down on her oxygen needs. Given the large bulla seen on CT imaging and COPD like changes will plan to call thoracic surgery tomorrow for recommendations on whether to continue with management by chest tube vs when to consider surgical evaluation. - Continue chest tube to suction - chest x-ray for tomorrow morning, sooner with any acute clinical changes - wean off O2 as able - will hold apixaban at this time. Consider heparin drip versus Lovenox for prophylaxis given recent pulmonary emboli
[2023-05-14] MEDS: LIDOCAINE 5% PATCH 1 PATCH TRANSDERMA (19:07)
[2023-05-14] MEDS: lisinopriL 20 MG TABLET 40 MG PO (22:03)
[2023-05-14] MEDS: hydroCHLOROthiazide 25 MG TABLET 50 MG PO (22:04)
[2023-05-14] MEDS: SODIUM CHLORIDE 0.9 % (FLUSH) 10 ML SYRINGE 5 ML IVF (22:05)
[2023-05-14] MEDS: ENOXAPARIN 120 MG/0.8 ML INJ SUBCUT (23:14)
[2023-05-15 00:20] VITALS: BP 128/55; PULSE 95; RESP 16; TEMP 36.4; O2SAT 88; O2SAT 95
--- NOTE | 2023-05-15 01:25 | PC.NURSE ---
Patient arrived at 1615. Pleasant, alert and oriented. Chest tube patent. Reports pain rated 3-4/10 in right side and back. Pain increases with movement. Expiratory wheezes heard throughout. Pivot transferred to bedside commode. Tolerated regular diet. ?
[2023-05-15 04:10] VITALS: BP 109/67; PULSE 88; RESP 14; TEMP 36.2; O2SAT 89
--- NOTE | 2023-05-15 05:52 | XR_ITS ---
Patient: KADE STRICKLAND Facility:?[facility] Patient ID:?[id number] Site Patient ID:?[id number] Site :?[id number] Study:?XRay-Chest 1v portable-05/15/2023 7:03:34 AM Ordering Physician:CHARLIE Final Report: Indication: Follow up pneumothorax. Technique: 1 View(s) of the chest. Comparison: 05/14/2023 and 12/15/2022. Findings/Impression: Lines and tubes: Unchanged position of the right chest tube. No definite right pneumothorax is visualized. There is improved right lung aeration with decrease in subsegmental perihilar atelectasis. Persistent patchy airspace opacities in the right lower lung. Unchanged nodule in the left perihilar region compared to prior CT. No pleural effusion. No left pneumothorax. Small amount of right chest wall subcutaneous emphysema. Dictated by Tiny Tabor MD @ 05/15/2023 7:09:21 AM Signed by:?Tiny Tabor MD @05/15/2023 7:09:21 AM (Electronic Signature)
[2023-05-15 06:25] LABS: HCO3 VBG 32 mmol/L (21-28); PCO2 VBG 56 mmHG (40-50); PO2 VBG < 30.1 mmHG (25-47); pH VBG 7.364 (7.32-7.43)
[2023-05-15] MEDS: LEVOTHYROXINE 75 MCG TABLET 150 MCG PO (06:25)
[2023-05-15 06:30] LABS: Basophils Percent Auto 0.1 % (0.0-3.0); Hematocrit 40.5 % (33.0-51.0); Hemoglobin* 12.7 gm/dL (12.0-16.0); Immature Granulocytes Pct Auto 0.1 %; Lymphocytes Percent Auto 9.7 % (20-44); Mean Corpuscular HGB Conc 31 gm/dL (32-36); Mean Corpuscular Hemoglobin 27 pg (26-34); Mean Corpuscular Volume 87 fL (80-100); Monocytes Percent Auto 6.3 % (0.0-11.0); Neutrophils Percent Auto 83.8 % (42.0-72.0); Platelet Count* 402 K/uL (140-440); RDW Coefficient of Variation % 17.4 % (11.5-15.5); Red Blood Count 4.64 m/uL (4.00-5.20); White Blood Count* 14.27 K/uL (4.50-11.00)
[2023-05-15 06:31] LABS: Slide Review Reflex No
[2023-05-15 06:44] LABS: Chloride* 105 mmol/L (96-114); Sodium* 141 mmol/L (135-149)
[2023-05-15 06:45] LABS: Potassium* 4.8 mmol/L (3.6-5.1)
[2023-05-15 06:47] LABS: Anion Gap 3 mEq/L (7-15); Carbon Dioxide* 33 mmol/L (20-32); Creatinine* 1.2 mg/dL (0.5-1.5); Est. Creatinine Clearance* 32.23; Estimated Glomerular Filt Rate 49 ml/min
[2023-05-15 06:48] LABS: Blood Urea Nitrogen* 31 mg/dL (7-30); Calcium* 10.4 mg/dL (8.4-10.6); Glucose* 139 mg/dL (60-115)
--- NOTE | 2023-05-15 06:57 | PC.NURSE ---
End of shift note: pt A&Ox3. denies pain. chest tube to right side, patent. lidocaine patch present on right middle back. Aqua K pad utilized for back discomfort. SpO2 86-90% on 2.5L supplemental O2. Tele NSR. pt is stand pivot to BSC.
[2023-05-15 07:00] VITALS: BP 129/80; PULSE 82; PULSE 93; RESP 22; TEMP 36.2; O2SAT 88
[2023-05-15] MEDS: SENNOSIDES/DOCUSATE TABLET PO (08:22)
[2023-05-15] MEDS: OXYCODONE 5 MG TABLET PO ×2 (08:22→16:41)
[2023-05-15] MEDS: predniSONE 20 MG TABLET 40 MG PO (08:22)
[2023-05-15] MEDS: IPRAT-ALBUT 0.5-2.5 MG/3 ML NEB 1 NEB IH ×3 (08:23→16:41)
[2023-05-15] MEDS: SODIUM CHLORIDE 0.9 % (FLUSH) 10 ML SYRINGE 5 ML IVF (09:17)
--- NOTE | 2023-05-15 10:30 | PM.IMPN1 ---
Progress Note: A&P Assessment and plan (1) Pneumothorax: Problem details: Most likely related to ruptured bleb from COPD. Chest tube in place. Patient is at risk for persistent leak. Dr. Gomez to assist with management. Status: Acute (2) Severe chronic obstructive pulmonary disease: Problem details: Dxed officially with moderate to severe COPD by PFTs at [facility] 02/27/22, with multiple exacerbations through Winter 2021-2023, Spiriva started 12/02. No formal Pulmonology consult, s/p pneumonia 01/02 (and PE and COPD exacerbation). Monitor for CO2 retention. Supplemental oxygen. Systemic prednisone for possible exacerbation at this time. Status: Acute (3) COPD exacerbation: Problem details: Inhaled bronchodilators and prednisone. Monitor for infection. Status: Acute (4) Pulmonary nodules: Problem details: - CT angiogram, 12/15/2022: Right upper lobe patchy consolidation. Right hilar soft tissue fullness may be related to adenopathy or possible mass. Irregular left upper lobe 1.3 x 1.7 centimeter bilobed nodule. 7 millimeter left lower lobe nodules. Findings could represent infectious etiologies however findings are worrisome for malignancy. Has seen pulmonology with unclear plan for follow-up Status: Acute (5) Tobacco dependence with current use: Problem details: Encourage complete abstinence. Nicotine replacement. Status: Acute (6) Morbid obesity with body mass index (BMI) of 40.0 or higher: Status: Acute (7) Hypothyroidism: Problem details: on levothyroxine Status: Acute (8) Essential hypertension: Problem details: Dxed around 2009, on medication lisinopril 20 mg with hydrochlorothiazide 25 mg, 2 tabs at at bedtime Status: Acute (9) History of pulmonary embolism: Problem details: noted by CT 01/02, on apixaban/Eliquis since 01/02. For now hold apixaban and switched to therapeutic Lovenox adjusted to renal function pre Status: Acute Plan 67-year-old female admitted for large right pneumothorax status post chest tube placement. Appears to have a persistent leak this morning. COPD appears to be close to baseline for her. Mild CO2 retention. On 3 L of oxygen per nasal cannula to maintain her O2 sats in the upper 80s. Continue coordination with surgery for plan of care for chest tube management and pneumothorax management. Ongoing concerns about right upper lobe mass and other lesions in her lung seen from CT in December. At some point consider chest CT to re-evaluate. Time Spent With Patient Total time spent: Total time spent today is 55 minutes, 40 minutes in coordination of care discussing with patient and other providers ongoing management of COPD, pneumothorax, chest tube, lung masses Subjective Date Seen: 05/15/23 Interval history: Erika Mccoy is a 67 year old female with severe O2 dependent COPD, recent pulmonary embolism and pneumonia presents with acute onset of dyspnea and right-sided chest pain starting last night. Patient reports she was in her usual state of health yesterday. Then last night she had a severe coughing episode and after that felt very dyspneic. She never really recovered her shortness of breath. She is on home oxygen at 2 L per nasal cannula with O2 sats typically in the 88-90% range. She was requiring 4 L per nasal cannula to maintain her O2 sats when the paramedics arrived and found her O2 sat at 80%. She has not had a fever or recent respiratory illness. She is having right-sided chest pain that occurs when she coughs. She was hospitalized here December 2022 at that time diagnosed with right upper lobe pneumonia, possible right upper lobe mass and pulmonary emboli. She was seen to have large right upper lobe blebs in addition to her right upper lobe mass and pulmonary emboli. She remains on anticoagulation with apixaban and reports compliance with this. For her COPD she uses her Advair and Spiriva inhalers and rescue inhaler or nebulizers with albuterol. She reports her breathing has been relatively stable at baseline recently. In January she saw a film examiner in [place] regarding her chronic lung disease and her right upper lobe mass. She is not aware that any further plans to evaluate or treat this were initiated. In the emergency department she was found to have a large right pneumothorax. Chest tube was placed. There is a persistent leak since the chest tube placement. She reports her breathing is now better but she is having a a pleuritic chest pain with deep breaths and coughing. 05/15/2023: Patient reports being a little better each today than yesterday. Still having right chest pain with deep breathing and coughing. She is requiring oxygen at 3 L per nasal cannula. Venous blood gas shows pCO2 of 56 this morning. Her dyspnea is at baseline. She is comfortable at rest and quite dyspneic with any activity. She is not aware of any fever. Chest tube appears to have a persistent leak. Exam Narrative: Exam Narrative: She is alert and appears comfortable at rest. Respirations with marked decreased breath sounds. Prolonged expiratory phase. The minimal wheezing present yesterday appears to be resolved. There is still an occasional rub and crackle at her right lung base. Cardiovascular: S1, S2, regular rate and rhythm. Abdomen is soft without tenderness or mass. Extremities with 1+ edema bilaterally. Const: Vital Signs, click to edit/add: Vital Signs - 24 hr 05/14/23 10:54 05/14/23 12:30 05/14/23 12:32 Temperature 97.6 F Pulse Rate Pulse Rate [Bilate ral Radial] Pulse Rate [Pulse Oximeter] 115 H Respiratory Rate 32 H Blood Pressure [Le ft Arm] Blood Pressure [Ri ght Upper Arm] 143/75 H Pulse Oximetry 88 91 91 Oxygen Delivery Me thod Nasal Cannula Oxygen Flow Rate 05/14/23 12:40 05/14/23 12:50 05/14/23 13:00 Temperature Pulse Rate Pulse Rate [Bilate ral Radial] Pulse Rate [Pulse Oximeter] Respiratory Rate Blood Pressure [Le ft Arm] Blood Pressure [Ri ght Upper Arm] Pulse Oximetry 91 90 90 Oxygen Delivery Me thod Oxygen Flow Rate 05/14/23 13:01 05/14/23 13:10 05/14/23 13:16 Temperature Pulse Rate Pulse Rate [Bilate ral Radial] Pulse Rate [Pulse Oximeter] Respiratory Rate 15 Blood Pressure [Le ft Arm] Blood Pressure [Ri ght Upper Arm] Pulse Oximetry 89 85 L 85 L Oxygen Delivery Me thod Oxygen Flow Rate 05/14/23 13:20 05/14/23 13:22 05/14/23 13:27 Temperature Pulse Rate Pulse Rate [Bilate ral Radial] Pulse Rate [Pulse Oximeter] Respiratory Rate 9 L 21 Blood Pressure [Le ft Arm] Blood Pressure [Ri ght Upper Arm] Pulse Oximetry 87 L 89 89 Oxygen Delivery Me thod Oxygen Flow Rate 05/14/23 13:30 05/14/23 13:32 05/14/23 13:37 Temperature Pulse Rate Pulse Rate [Bilate ral Radial] Pulse Rate [Pulse Oximeter] Respiratory Rate 13 16 19 Blood Pressure [Le ft Arm] Blood Pressure [Ri ght Upper Arm] Pulse Oximetry 86 L 84 L 86 L Oxygen Delivery Me thod Oxygen Flow Rate 05/14/23 13:40 05/14/23 13:41 05/14/23 13:47 Temperature Pulse Rate Pulse Rate [Bilate ral Radial] Pulse Rate [Pulse Oximeter] Respiratory Rate 9 L 7 L 18 Blood Pressure [Le ft Arm] Blood Pressure [Ri ght Upper Arm] Pulse Oximetry 87 L 81 L 83 L Oxygen Delivery Me thod Oxygen Flow Rate 05/14/23 13:50 05/14/23 13:52 05/14/23 13:56 Temperature Pulse Rate Pulse Rate [Bilate ral Radial] Pulse Rate [Pulse Oximeter] Respiratory Rate 15 8 L 21 Blood Pressure [Le ft Arm] Blood Pressure [Ri ght Upper Arm] Pulse Oximetry 84 L 87 L 89 Oxygen Delivery Me thod Oxygen Flow Rate 05/14/23 14:00 05/14/23 14:01 05/14/23 14:07 Temperature Pulse Rate Pulse Rate [Bilate ral Radial] Pulse Rate [Pulse Oximeter] Respiratory Rate 15 17 19 Blood Pressure [Le ft Arm] Blood Pressure [Ri ght Upper Arm] Pulse Oximetry 88 88 88 Oxygen Delivery Me thod Oxygen Flow Rate 05/14/23 14:10 05/14/23 14:11 05/14/23 14:16 Temperature Pulse Rate Pulse Rate [Bilate ral Radial] Pulse Rate [Pulse Oximeter] Respiratory Rate 18 17 17 Blood Pressure [Le ft Arm] Blood Pressure [Ri ght Upper Arm] Pulse Oximetry 88 89 89 Oxygen Delivery Me thod Oxygen Flow Rate 05/14/23 14:20 05/14/23 14:22 05/14/23 14:27 Temperature Pulse Rate Pulse Rate [Bilate ral Radial] Pulse Rate [Pulse Oximeter] Respiratory Rate 18 18 18 Blood Pressure [Le ft Arm] Blood Pressure [Ri ght Upper Arm] Pulse Oximetry 88 90 89 Oxygen Delivery Me thod Oxygen Flow Rate 05/14/23 14:30 05/14/23 14:32 05/14/23 14:36 Temperature Pulse Rate Pulse Rate [Bilate ral Radial] Pulse Rate [Pulse Oximeter] Respiratory Rate 17 12 18 Blood Pressure [Le ft Arm] Blood Pressure [Ri ght Upper Arm] Pulse Oximetry 89 91 91 Oxygen Delivery Me thod Oxygen Flow Rate 05/14/23 14:40 05/14/23 14:42 05/14/23 14:47 Temperature Pulse Rate Pulse Rate [Bilate ral Radial] Pulse Rate [Pulse Oximeter] Respiratory Rate 10 L 24 17 Blood Pressure [Le ft Arm] Blood Pressure [Ri ght Upper Arm] Pulse Oximetry 91 89 89 Oxygen Delivery Me thod Oxygen Flow Rate 05/14/23 14:50 05/14/23 14:52 05/14/23 14:56 Temperature Pulse Rate Pulse Rate [Bilate ral Radial] Pulse Rate [Pulse Oximeter] Respiratory Rate 15 14 14 Blood Pressure [Le ft Arm] Blood Pressure [Ri ght Upper Arm] Pulse Oximetry 89 89 90 Oxygen Delivery Me thod Oxygen Flow Rate 05/14/23 15:00 05/14/23 15:01 05/14/23 15:06 Temperature Pulse Rate Pulse Rate [Bilate ral Radial] Pulse Rate [Pulse Oximeter] Respiratory Rate 18 15 15 Blood Pressure [Le ft Arm] Blood Pressure [Ri ght Upper Arm] Pulse Oximetry 90 90 90 Oxygen Delivery Me thod Oxygen Flow Rate 05/14/23 15:10 05/14/23 15:11 05/14/23 15:12 Temperature Pulse Rate Pulse Rate [Bilate ral Radial] Pulse Rate [Pulse Oximeter] Respiratory Rate 15 14 Blood Pressure [Le ft Arm] Blood Pressure [Ri ght Upper Arm] Pulse Oximetry 89 89 89 Oxygen Delivery Me thod Oxygen Flow Rate 05/14/23 15:16 05/14/23 15:20 05/14/23 15:22 Temperature Pulse Rate Pulse Rate [Bilate ral Radial] Pulse Rate [Pulse Oximeter] Respiratory Rate 14 14 13 Blood Pressure [Le ft Arm] Blood Pressure [Ri ght Upper Arm] Pulse Oximetry 90 89 90 Oxygen Delivery Me thod Oxygen Flow Rate 05/14/23 15:27 05/14/23 15:27 05/14/23 15:30 Temperature Pulse Rate Pulse Rate [Bilate ral Radial] Pulse Rate [Pulse Oximeter] Respiratory Rate 16 16 14 Blood Pressure [Le ft Arm] Blood Pressure [Ri ght Upper Arm] Pulse Oximetry 90 90 90 Oxygen Delivery Me thod Oxygen Flow Rate 05/14/23 15:31 05/14/23 16:16 05/14/23 16:16 Temperature 97.9 F Pulse Rate Pulse Rate [Bilate ral Radial] Pulse Rate [Pulse Oximeter] 96 Respiratory Rate 13 20 Blood Pressure [Le ft Arm] 128/72 Blood Pressure [Ri ght Upper Arm] Pulse Oximetry 90 89 Oxygen Delivery Me thod Nasal Cannula Nasal Cannula Oxygen Flow Rate 3 3 05/14/23 18:31 05/15/23 00:20 05/15/23 00:20 Temperature 97.5 F L Pulse Rate 95 Pulse Rate [Bilate ral Radial] Pulse Rate [Pulse Oximeter] 97 Respiratory Rate 17 Blood Pressure [Le ft Arm] 124/58 L Blood Pressure [Ri ght Upper Arm] Pulse Oximetry 88 95 Oxygen Delivery Me thod Nasal Cannula Oxygen Flow Rate 2.5 05/15/23 00:20 05/15/23 00:20 05/15/23 04:10 Temperature 97.5 F L 97.1 F L Pulse Rate Pulse Rate [Bilate ral Radial] Pulse Rate [Pulse Oximeter] 95 95 88 Respiratory Rate 16 16 14 Blood Pressure [Le ft Arm] 128/55 L 109/67 Blood Pressure [Ri ght Upper Arm] Pulse Oximetry 88 89 Oxygen Delivery Me thod Nasal Cannula Nasal Cannula Oxygen Flow Rate 2.5 2.5 05/15/23 07:00 05/15/23 07:00 05/15/23 07:00 Temperature 97.2 F L Pulse Rate Pulse Rate [Bilate ral Radial] 93 Pulse Rate [Pulse Oximeter] Respiratory Rate 22 22 Blood Pressure [Le ft Arm] 129/80 Blood Pressure [Ri ght Upper Arm] Pulse Oximetry 88 88 Oxygen Delivery Me thod Nasal Cannula Oxygen Flow Rate 2.5 Documenting provider has reviewed patient's vital signs: yes Labs Labs: Laboratory Results - last 24 hr 05/14/23 05/14/23 05/14/23 11:26 11:35 16:08 WBC 13.83 H RBC 5.04 Hgb 13.6 Hct 44.4 MCV 88 MCH 27 MCHC 31 L RDW Coeff of Rick 17.3 H Plt Count 435 Neut % (Auto) 76.2 H Lymph % (Auto) 15.7 L [place] % (Auto) 6.4 Eos % (Auto) 1.2 Baso % (Auto) 0.4 Neut # (Auto) 10.50 H Lymph # (Auto) 2.20 [place] # (Auto) 0.90 Eos # (Auto) 0.20 Baso # (Auto) 0.10 Abs Immat Gran (auto) 0.00 Imm/Tot Granulo (auto) 0.1 VBG pH 7.411 VBG pCO2 43 VBG pO2 36.8 VBG HCO3 27 Sodium 142 Potassium 4.1 Chloride 106 Carbon Dioxide 29 Anion Gap 7 BUN 23 Creatinine 1.1 Estimated Creat Clear 35.16 Estimated GFR 55 Glucose 147 H Calcium 10.0 SARS-CoV-2 (PCR) Negative SARS-CoV-2 Influenza Type A (PCR) Negative PCR FLU A Influenza Type B (PCR) Negative PCR FLU B RSV (PCR) Negative PCR RSV 05/15/23 06:15 WBC 14.27 H RBC 4.64 Hgb 12.7 Hct 40.5 MCV 87 MCH 27 MCHC 31 L RDW Coeff of Rick 17.4 H Plt Count 402 Neut % (Auto) 83.8 H Lymph % (Auto) 9.7 L [place] % (Auto) 6.3 Eos % (Auto) 0.0 Baso % (Auto) 0.1 Neut # (Auto) 12.00 H Lymph # (Auto) 1.40 [place] # (Auto) 0.90 Eos # (Auto) 0.00 Baso # (Auto) 0.00 Abs Immat Gran (auto) 0.00 Imm/Tot Granulo (auto) 0.1 VBG pH 7.364 VBG pCO2 56 H VBG pO2 < 30.1 VBG HCO3 32 H Sodium 141 Potassium 4.8 Chloride 105 Carbon Dioxide 33 H Anion Gap 3 L BUN 31 H Creatinine 1.2 Estimated Creat Clear 32.23 Estimated GFR 49 Glucose 139 H Calcium 10.4 SARS-CoV-2 (PCR) Influenza Type A (PCR) Influenza Type B (PCR) RSV (PCR)
[2023-05-15 11:00] VITALS: BP 124/63; PULSE 88; RESP 22; TEMP 36.7; O2SAT 88
[2023-05-15] MEDS: ENOXAPARIN 80 MG/0.8 ML INJ SUBCUT (11:10)
--- NOTE | 2023-05-15 12:57 | CT_ITS ---
Patient: KADE STRICKLAND Facility:?[facility] Patient ID:?[id number] Site Patient ID:?[id number]. Site :?[id number] Study:?CT-Chest W/ ISOVUE 370-05/15/2023 1:55:03 PM Ordering Physician:LESTER Final Report: Indication: Lung mass, pneumothorax Technique: Volumetric multidetector CT images of the chest were obtained after the administration of IV contrast. 75 cc Isovue 370 low osmolar intravenous contrast Comparison: Single-view chest May 15, [address] chest December 15, 2022 Findings: The thoracic inlet and thyroid gland are unremarkable. The thoracic aorta is nonaneurysmal. There is no central filling defect to suggest pulmonary embolism. There is no mediastinal, hilar or axillary adenopathy. There is mild central bronchial thickening. There is demonstration of a right-sided thoracostomy tube seen within the superior aspect of the major fissure with mild right-sided pneumothorax. There is mild right apical pleural thickening with consolidation in the right lower lobe likely representing atelectasis, an underlying infiltrate or mass is difficult to exclude. Moderate subcutaneous emphysema along the right chest wall is seen. Demonstration of a pulmonary mass lesion within the left upper lobe measuring 1.3 x 1.2 centimeters in greatest dimension on series 2, image 36. The partially visualized upper abdomen demonstrates a hypodense mass lesion within the inferior right liver measuring up to 8.6 x 4.9 centimeters in greatest dimension. The thoracic vertebral body heights remain intact alignment without significant degenerative change or acute osseous abnormality. Impression: Demonstration of right-sided thoracostomy tube within the major fissure. Small right-sided pneumothorax without evidence of tension. Right lower lobe atelectasis with apical pleural thickening and parenchymal scar. Demonstration of a 1.3 centimeter mass in the central left upper lobe, slightly decreased in size and conspicuity from remote comparison previously measuring up to 1.7 centimeters. Incidental note made of an 8.6 centimeter hypodense mass within the liver somewhat increased in conspicuity from a remote comparison which may represent metastatic changes. Please note that all CT scans at this facility use dose modulation, iterative reconstruction, and/or weight-based dosing when appropriate to reduce radiation dose to as low as reasonably achievable. Dictated by Ziyad Yanes MD @ 05/15/2023 2:07:45 PM Signed by:?Ziyad Yanes MD @05/15/2023 2:07:45 PM (Electronic Signature)
--- NOTE | 2023-05-15 13:00 | PM.GSPN ---
Subjective Subjective Date Seen: 05/15/23 Interval history: Patient is doing okay this morning. Her shortness of breath has improved. She continues on oxygen. Her biggest complaint yesterday evening was back pain, this was helped with a lidocaine patch and hot pack. No other concerns. Exam Narrative: Exam Narrative: General: Alert and oriented, no acute distress Respiratory: Maintained on nasal cannula. Right chest tube in place. This remains to suction. Evidence of an air leak during expiration and consistently while talking. CV: Regular rhythm and rate Const: Vital Signs, click to edit/add: Vital Signs - 24 hr 05/14/23 13:01 05/14/23 13:10 05/14/23 13:16 Temperature Pulse Rate Pulse Rate [Bilate ral Radial] Pulse Rate [Pulse Oximeter] Respiratory Rate 15 Blood Pressure [Le ft Arm] Pulse Oximetry 89 85 L 85 L Oxygen Delivery Me thod Oxygen Flow Rate 05/14/23 13:20 05/14/23 13:22 05/14/23 13:27 Temperature Pulse Rate Pulse Rate [Bilate ral Radial] Pulse Rate [Pulse Oximeter] Respiratory Rate 9 L 21 Blood Pressure [Le ft Arm] Pulse Oximetry 87 L 89 89 Oxygen Delivery Me thod Oxygen Flow Rate 05/14/23 13:30 05/14/23 13:32 05/14/23 13:37 Temperature Pulse Rate Pulse Rate [Bilate ral Radial] Pulse Rate [Pulse Oximeter] Respiratory Rate 13 16 19 Blood Pressure [Le ft Arm] Pulse Oximetry 86 L 84 L 86 L Oxygen Delivery Me thod Oxygen Flow Rate 05/14/23 13:40 05/14/23 13:41 05/14/23 13:47 Temperature Pulse Rate Pulse Rate [Bilate ral Radial] Pulse Rate [Pulse Oximeter] Respiratory Rate 9 L 7 L 18 Blood Pressure [Le ft Arm] Pulse Oximetry 87 L 81 L 83 L Oxygen Delivery Me thod Oxygen Flow Rate 05/14/23 13:50 05/14/23 13:52 05/14/23 13:56 Temperature Pulse Rate Pulse Rate [Bilate ral Radial] Pulse Rate [Pulse Oximeter] Respiratory Rate 15 8 L 21 Blood Pressure [Le ft Arm] Pulse Oximetry 84 L 87 L 89 Oxygen Delivery Me thod Oxygen Flow Rate 05/14/23 14:00 05/14/23 14:01 05/14/23 14:07 Temperature Pulse Rate Pulse Rate [Bilate ral Radial] Pulse Rate [Pulse Oximeter] Respiratory Rate 15 17 19 Blood Pressure [Le ft Arm] Pulse Oximetry 88 88 88 Oxygen Delivery Me thod Oxygen Flow Rate 05/14/23 14:10 05/14/23 14:11 05/14/23 14:16 Temperature Pulse Rate Pulse Rate [Bilate ral Radial] Pulse Rate [Pulse Oximeter] Respiratory Rate 18 17 17 Blood Pressure [Le ft Arm] Pulse Oximetry 88 89 89 Oxygen Delivery Me thod Oxygen Flow Rate 05/14/23 14:20 05/14/23 14:22 05/14/23 14:27 Temperature Pulse Rate Pulse Rate [Bilate ral Radial] Pulse Rate [Pulse Oximeter] Respiratory Rate 18 18 18 Blood Pressure [Le ft Arm] Pulse Oximetry 88 90 89 Oxygen Delivery Me thod Oxygen Flow Rate 05/14/23 14:30 05/14/23 14:32 05/14/23 14:36 Temperature Pulse Rate Pulse Rate [Bilate ral Radial] Pulse Rate [Pulse Oximeter] Respiratory Rate 17 12 18 Blood Pressure [Le ft Arm] Pulse Oximetry 89 91 91 Oxygen Delivery Me thod Oxygen Flow Rate 05/14/23 14:40 05/14/23 14:42 05/14/23 14:47 Temperature Pulse Rate Pulse Rate [Bilate ral Radial] Pulse Rate [Pulse Oximeter] Respiratory Rate 10 L 24 17 Blood Pressure [Le ft Arm] Pulse Oximetry 91 89 89 Oxygen Delivery Me thod Oxygen Flow Rate 05/14/23 14:50 05/14/23 14:52 05/14/23 14:56 Temperature Pulse Rate Pulse Rate [Bilate ral Radial] Pulse Rate [Pulse Oximeter] Respiratory Rate 15 14 14 Blood Pressure [Le ft Arm] Pulse Oximetry 89 89 90 Oxygen Delivery Me thod Oxygen Flow Rate 05/14/23 15:00 05/14/23 15:01 05/14/23 15:06 Temperature Pulse Rate Pulse Rate [Bilate ral Radial] Pulse Rate [Pulse Oximeter] Respiratory Rate 18 15 15 Blood Pressure [Le ft Arm] Pulse Oximetry 90 90 90 Oxygen Delivery Me thod Oxygen Flow Rate 05/14/23 15:10 05/14/23 15:11 05/14/23 15:12 Temperature Pulse Rate Pulse Rate [Bilate ral Radial] Pulse Rate [Pulse Oximeter] Respiratory Rate 15 14 Blood Pressure [Le ft Arm] Pulse Oximetry 89 89 89 Oxygen Delivery Me thod Oxygen Flow Rate 05/14/23 15:16 05/14/23 15:20 05/14/23 15:22 Temperature Pulse Rate Pulse Rate [Bilate ral Radial] Pulse Rate [Pulse Oximeter] Respiratory Rate 14 14 13 Blood Pressure [Le ft Arm] Pulse Oximetry 90 89 90 Oxygen Delivery Me thod Oxygen Flow Rate 05/14/23 15:27 05/14/23 15:27 05/14/23 15:30 Temperature Pulse Rate Pulse Rate [Bilate ral Radial] Pulse Rate [Pulse Oximeter] Respiratory Rate 16 16 14 Blood Pressure [Le ft Arm] Pulse Oximetry 90 90 90 Oxygen Delivery Me thod Oxygen Flow Rate 05/14/23 15:31 05/14/23 16:16 05/14/23 16:16 Temperature 97.9 F Pulse Rate Pulse Rate [Bilate ral Radial] Pulse Rate [Pulse Oximeter] 96 Respiratory Rate 13 20 Blood Pressure [Le ft Arm] 128/72 Pulse Oximetry 90 89 Oxygen Delivery Me thod Nasal Cannula Nasal Cannula Oxygen Flow Rate 3 3 05/14/23 18:31 05/15/23 00:20 05/15/23 00:20 Temperature 97.5 F L Pulse Rate 95 Pulse Rate [Bilate ral Radial] Pulse Rate [Pulse Oximeter] 97 Respiratory Rate 17 Blood Pressure [Le ft Arm] 124/58 L Pulse Oximetry 88 95 Oxygen Delivery Me thod Nasal Cannula Oxygen Flow Rate 2.5 05/15/23 00:20 05/15/23 00:20 05/15/23 04:10 Temperature 97.5 F L 97.1 F L Pulse Rate Pulse Rate [Bilate ral Radial] Pulse Rate [Pulse Oximeter] 95 95 88 Respiratory Rate 16 16 14 Blood Pressure [Le ft Arm] 128/55 L 109/67 Pulse Oximetry 88 89 Oxygen Delivery Me thod Nasal Cannula Nasal Cannula Oxygen Flow Rate 2.5 2.5 05/15/23 07:00 05/15/23 07:00 05/15/23 07:00 Temperature 97.2 F L Pulse Rate Pulse Rate [Bilate ral Radial] 93 Pulse Rate [Pulse Oximeter] Respiratory Rate 22 22 Blood Pressure [Le ft Arm] 129/80 Pulse Oximetry 88 88 Oxygen Delivery Me thod Nasal Cannula Oxygen Flow Rate 2.5 05/15/23 07:00 05/15/23 11:00 Temperature 98.1 F Pulse Rate 82 Pulse Rate [Bilate ral Radial] Pulse Rate [Pulse Oximeter] 88 Respiratory Rate 22 Blood Pressure [Le ft Arm] 124/63 Pulse Oximetry 88 Oxygen Delivery Me thod Nasal Cannula Oxygen Flow Rate 3 Labs/Imaging Imaging Imaging: Chest x-ray this morning demonstrates lung is reinflated, no evidence of pneumothorax reaccumulation. Chest tube remains in place. A small amount of subcutaneous air is present within the right axilla. Progress Note:A&P Assessment and plan (1) Pneumothorax: Status: Acute Assessment and Plan: Patient with a right-sided pneumothorax secondary to a ruptured bleb. She does have a history of severe COPD, O2 dependent in current tobacco user. A 24 [place] chest tube has been placed on the right side, with reinflation of the lung. It remains to suction this morning. On examination an air leak is demonstrated during expiration and continuously while talking. I spoke with thoracic surgery at [facility]. Given patient's diseased lung, evidence of large bleb on CTA imaging from 12/2022 and moderate size leak, this does have a higher likelihood of failing conservative management with a chest tube and requiring surgical intervention. Recommend transfer for thoracic surgery and Interventional Pulmonology evaluation. Patient is currently on the wait list at [facility]. - continue with chest tube to suction, ok to waterseal for ambulation. - CT chest this afternoon to re-evaluate lungs - anticoagulation being managed by hospitalist, at this time
--- NOTE | 2023-05-15 14:28 | PC.NURSE ---
End of Shift Note: Patient is alert and orientated. O2 sat has been 88-92% on 3L. Does complain of shortness of breath with activity. Has really not eaten much today does not have much of an appetite. Did have chest tube to water suction and went to radiology for a Cat scan of her chest. Did complain of pain at the start of my shift received oxycodone see [place]. Stated that it helped her sleep a little as she did not get much sleep last night. Will continue to monitor until next shift arrives.
[2023-05-15 15:00] VITALS: RESP 22; O2SAT 88
--- NOTE | 2023-05-15 17:15 | P.EN_ITS ---
Chart Event Note Time Seen by Provider: 16:05 Chart Event Note: I received a call from the [facility] staff, then spoke with Dr. Steward, hospitalist, [facility], updating him about the patient's presentation and evolving condition with our intervention and efforts, who accepted the patient in transfer. Nursing will coordinate patient transfer with [facility] staff.
--- NOTE | 2023-05-15 17:28 | PC.NURSE ---
Pt. transferred to [facility] at 1728 via [facility]. [id number] report given to Nurse Lindsey at [facility].
== END 2023-05-15 17:28 | disposition short-term general hospital (02) | DRG 200 ==
LOC: ED 15:22 → MEDSURG 15:27
PROVIDERS: Admitting Provider Family Medicine; Emergency Provider Emergency Medicine Emergency Medical Services; PCP Internal Medicine; Visit Provider Family Medicine
DX: J93.83 Other pneumothorax (principal); J44.1 Chronic obstructive pulmonary disease with (acute) exacerbation; Z68.42 Body mass index [BMI] 45.0-49.9, adult; J98.11 Atelectasis; J43.9 Emphysema, unspecified; Z99.81 Dependence on supplemental oxygen; F17.200 Nicotine dependence, unspecified, uncomplicated; Z86.711 Personal history of pulmonary embolism; I10 Essential (primary) hypertension; M85.80 Other specified disorders of bone density and structure, unspecified site; E66.01 Morbid (severe) obesity due to excess calories; R91.8 Other nonspecific abnormal finding of lung field; E03.9 Hypothyroidism, unspecified; R16.0 Hepatomegaly, not elsewhere classified
CPT/HCPCS: 32551; 36415; 71045; 71260; 80048; 82803; 85025; 87631; 93005; 94640; 94761; 99284; 99285; 99291; A9270; J1170; J1650; J2250; J2919; J3010; J3490; J7512; Q9967

== ENCOUNTER 2023-05-15 17:13 | Outpatient (CLI) | payer MEDICARE, SELFPAY ==
--- OUTSIDE RECORDS SUMMARY | 2023-05-21 17:28 | XMS_ITS | Clinical Summary ---
Author Name Unknown Organization [employer] [facility] Address [place], [place] [address] Care Team Providers Care Child Welfare Counselor Name Role Phone Ciara Jon MD Primary Care Provider [phone]- [phone] Allergies No known active allergies Medications Medication Sig Dispensed Refills Start Date End Date Status albuterol HFA (PRO-AIR; VENTOLIN; PROVENTIL) 90 mcg/actuation inhaler Inhale 2 Puffs by mouth every 4 hours if needed. Active fluticasone propion-salmeter oL (Advair Diskus) 250-50 mcg/Dose diskus inhaler Inhale 1 Puff by mouth two times daily. Active levothyroxine (Synthroid) 150 mcg tablet Take 150 mcg by mouth at bedtime. Active albuterol-ipratr opium (DUONEB) (2.5-0.5 mg) in 3 mL NEBULIZATION solution Inhale 1 Neb via a nebulizer 4 times daily if needed. NEBULIZE CONTENTS OF 1 VIAL FOUR TIMES A DAY NEEDED FOR DYSPNEA Active tiotropium (SPIRIVA HANDIHALER) 18 mcg inhalation capsule Inhale 18 mcg by mouth once daily in the afternoon. Using a SPRIVA HANDIHALER schulz the capsule, then by mouth breathe in the powder. Inhale twice from the same capsule for full dose. Active lisinopril-hydro chlorothiazide, 20-25 mg, (PRINZIDE, ZESTORETIC) 20-25 mg per tablet Take 2 Tablets by mouth at bedtime. Active azithromycin (Zithromax) 250 mg tablet Take 250 mg by mouth every Friday, Friday and Friday. TAKE ONE TABLET BY MOUTH THREE TIMES WEEKLY (takes at HS) Active acetaminophen (TYLENOL) 325 mg tabletIndication s:Pain Take 2 Tablets (650 mg) by mouth every 6 hours if needed for Pain (For mild pain.). Max acetaminophen dose: 4000mg in 24 hrs. 30 Tablet 4 Active lidocaine 4 % topical patchIndications :Pain Apply to intact skin to cover most painful area for max 12hr per 24hr period. Only uses as needed. 30 Patch 4 Active oxyCODONE (ROXICODONE) 5 mg immediate release tabletIndication s:Pain Take 0.5 Tablets (2.5 mg) by mouth every 4 hours if needed for Pain (For moderate to severe pain.). 10 Tablet 4 Active apixaban (Eliquis) 5 mg tabletIndication s:History of pulmonary embolism Take 1 Tablet (5 mg) by mouth two times daily. Restart 05/20 evening. Take by mouth two times daily. 4 Active LISINOPRIL-HYDRO CHLOROTHIAZIDE ORAL Take by mouth. 05/15/19 24 Discontinued(Ph armacist change per medication history (E-cancel not sent)) levothyroxine (SYNTHROID) 50 mcg tablet Take 150 mcg by mouth before breakfast. 05/15/19 24 Discontinued(Ph armacist change per medication history (E-cancel not sent)) apixaban (Eliquis) 5 mg tablet Take 5 mg by mouth two times daily. 05/20/19 24 Discontinued Active Problems Problem Noted Date Diagnosed Date COPD with exacerbation 05/15/2023 Severe chronic obstructive pulmonary disease 05/2023 Morbid obesity with body mass index (BMI) of 40. 0 or higher 05/15/2023 Osteopenia 05/15/2023 Primary spontaneous pneumothorax 05/15/2023 Essential hypertension 03/23/2012 Hypothyroidism 03/23/2012 Nicotine dependence 03/23/2012 Encounters Date Type Department Care Team Description 05/20/2023 Travel 05/15/2023 6:20 PM CDT - 05/20/2023 6:16 PM CDT Hospital Encounter [facility] [address] [place] [address] [facility], w Hospitalists Of Omi Nur MD Pensa, MD Les Wang, Santiago Park MD Pain (Primary Dx); Primary spontaneous pneumothorax; History of pulmonary embolism Discharge Disposition: Home Health from Last 3 Months Social History Tobacco Use Types Packs/Day Years Used Date Smoking Tobacco: Some Days Cigarettes Passive Smoke Exposure: Past Smokeless Tobacco: Former Chew Tobacco Cessation:Ready to Q uit: Yes; Counseling Given: Not Answered Alcohol Use Standard Drinks/Week Comments Not Currently 0 (1 standard drink = 0.6 oz pur e alcohol) PHQ-2 Answer Date Recorded PHQ-2 TOTAL SCORE 0 10/03/2022 Social Connections Answer Date Recorded Frequency of Communication with Friends and Fami ly 0 05/20/2023 Financial Resource Strain Answer Date R ecorded Difficulty of Paying Living Expenses 3 05/20/2023 Difficulty of Paying Living Expenses Not on file 05/20/2023 Food Insecurity Answer Date Recorded Worried About Running Out of Food in the Last Ye ar 1 05/20/2023 Transportation Needs Answer Date Record ed Lack of Transportation (Medical) 1 05/20/2023 Housing Stability Answer Date Recorded Unable to Pay for Housing in the Last Year 1 05/20/2023 Sex and Gender Information Value Date Recorded Sex Assigned at Not on file Gender Identity Not on file Sexual Orientation Not on file Obstetrics History Last Filed Vital Signs Vital Sign Reading Time Taken Comments Blood Pressure 141/64 05/20/2023 4:49 PM CDT Pulse 83 05/20/2023 4:49 PM CDT Temperature 36.3 ??C (97.4 ??F) 05/20/2023 4:49 PM CD T Respiratory Rate 15 05/20/2023 4:49 PM CDT Oxygen Saturation 90% 05/20/2023 4:49 PM CDT Inhaled Oxygen Concentration - - Weight 105 kg (231 lb 8 oz) 05/20/2023 6:02 AM C DT Height 152.4 cm (5') 04/11/2022 1:00 PM REGRIND MILL OPERATOR Body Mass Index 45.21 04/11/2022 1:00 PM REGRIND MILL OPERATOR Plan of Treatment Health Maintenance Due Date [...] 11/22/19, 12/06/2021, 07/24/2021, Additional history exists Procedures Procedure Name Priority Date/Time Associated Diagnosis Comments XR CHEST 1 VIEW PORTABLE Timed 05/20/2023 1:08 PM CDT XR CHEST 1 VIEW PORTABLE Timed 05/20/2023 4:29 AM CDT SCAN CORRESP-EKG RESULTS 2023 8:21 AM CDT SCAN CORRESP-LABORATORY RESULTS 2023 8:21 AM CDT SCAN CORRESP-IMAGING 2023 8:21 AM CDT WHITE BLOOD COUNT Early AM 2023 6:3 9 AM CDT CREATININE Early AM 2023 6:39 AM CDT XR CHEST 1 VIEW PORTABLE Timed 2023 5:10 AM CDT PRO-BNP VEGA 05/18/2023 6:04 AM CDT WHITE BLOOD COUNT Early AM 05/18/2023 6:0 4 AM CDT POTASSIUM Early AM 05/18/2023 6:04 AM CDT SODIUM Early AM 05/18/2023 6:04 AM CDT CREATININE Early AM 05/18/2023 6:04 AM CDT XR CHEST 1 VIEW PORTABLE Timed 05/18/2023 4:41 AM CDT CREATININE Early AM 05/17/2023 7:44 AM CDT [...] CDT from Last 3 Months Results * XR CHEST 1 VIEW PORTABLE (05/20/2023 1:08 PM CDT) Only the most recent of6 resultswithin the time period is included. Anatomical Region Laterality Modality HEART, THORAX, CHEST Digital Rad iography Narrative 05/20/2023 1:28 PM CDT Indication: Chest tube clamping trial. ??Evaluate for pneumothorax. Technique: AP portable chest. Comparison: May 20, 2023 performed earlier on the same date. Findings: Single right-sided chest tube in good position. ??No visible pneumothorax. ??Slight eventration of the right hemidiaphragm. ??Minor right basilar atelectasis. ??Clear left lung. ??Overall heart size is normal. Impression: No pneumothorax status post chest tube clamping. [facility] * SCAN CORRESP-LABORATORY RESULTS (2023 8:21 AM CDT) Narrative 2023 8:21 AM CDT Ordered by an unspecified provider. Other Clinical Staff OTHER * SCAN CORRESP-EKG RESULTS (2023 8:21 AM CDT) Narrative 2023 8:21 AM CDT Ordered by an unspecified provider. Other Clinical Staff OTHER * SCAN CORRESP-IMAGING (2023 8:21 AM CDT) Anatomical Region Laterality Modality Other Narrative 2023 8:21 AM CDT Ordered by an unspecified provider. Other Clinical Staff OTHER * WBC AM (2023 6:39 AM CDT) Only the most recent of3 resultswithin the time period is included. WHITE BLOOD COUNT 10.7 4.5 - 11.0 thou/cu mm 2023 7:14 AM CDT [facility] NRBC 0.0 % 2023 7:14 AM CDT [facility] ABS NRBC 0.0 thou /cu mm 2023 7:14 AM CDT [facility] Blood BLOOD SPECIMEN / Unknown Venipuncture / Unknown 2023 6:39 AM CDT 2023 7:04 AM CDT Katie Diaz MD HEMATOLOGY [facility] [address] [place] [id number], * (ABNORMAL) Creatinine AM (2023 6:39 AM CDT) Only the most recent of3 resultswithin the time period is included. eGFR 59(L) >90 mL/min/1.7 3m2 2023 7:[address] [facility] Comment:As of 2021, eG FR is calculated by the CKD-EPI creatinine equation without race adjustment. ??eGFR can be influenced by muscle mass, exercise, and diet. ??The reported eGFR is an estimation only and is only applicable if the renal function is stable. CREATININE 1.04(H) 0.50 - 0.90 mg/dL 2023 7:[address] [facility] Blood BLOOD SPECIMEN / Unknown Venipuncture / Unknown 2023 6:39 AM CDT 2023 7:04 AM CDT Katie Diaz MD CHEMISTRY Performing Organization Address City/[facility] Co de Phone Number [facility] [address] [place] [address], [place] * Sodium AM (05/18/2023 6:04 AM CDT) SODIUM 140 136 - 145 mmol/L 05/18/2023 6:46 AM CDT [facility] Blood BLOOD SPECIMEN / Unknown Butterfly / Unknown 05/18/2023 6:04 AM CDT 05/18/2023 6:12 AM CDT Santiago Saldana MD CHEMISTRY Performing Organization Address [facility] Co de Phone Number [facility] [address] [place] [address], [place] * Potassium AM (05/18/2023 6:04 AM CDT) POTASSIUM 3.9 3.5 - 5.1 mmol/L 05/18/2023 6:46 AM CDT [facility] Blood BLOOD SPECIMEN / Unknown Butterfly / Unknown 05/18/2023 6:04 AM CDT 05/18/2023 6:12 AM CDT Santiago Saldana MD CHEMISTRY Performing Organization Address [facility] Co de Phone Number [facility] [address] [place] [address], [place] * (ABNORMAL) PRO-BNP (05/18/2023 6:04 AM CDT) PRO-BNP 148(H) <125 pg/mL 05/18/2023 8:36 AM CDT [facility] Blood BLOOD SPECIMEN / Unknown Butterfly / Unknown 05/18/2023 6:04 AM CDT 05/18/2023 6:12 AM CDT Narrative [facility] - 05/18/2023 8:36 AM CDT The following cut-points have been suggested for the use of proBNP for the diagnostic evaluation of heart failure (HF) in patient with acute dyspnea. Patients with eGFR >= 60 Diagnosis (rule in CHF) ? <50 Years Old ?450 pg/mL 50 - 75 Years Old ?900 pg/mL >75 Years Old ? 1800 pg/mL Exclusion (rule out CHF) Age Independent ?300 pg/mL A cutoff of 1200 pg/mL for patients with an eGFR <60 yields a diagnostic sensitivity of 89% and specificity of 72% for acute congestive heart failure. ? Katie Diaz MD SEND OUTS [facility] [address] [place] [address], * (ABNORMAL) CBC W PLT NO DIFF (05/16/2023 8:59 AM CDT) WHITE BLOOD COUNT 19.0(H) 4.5 - 11.0 thou/cu mm 05/16/2023 9:55 AM CDT [facility] RED BLOOD COUNT 4.74 4.00 - 5.20 mil/cu mm 05/16/2023 9:[address] [facility] HEMOGLOBIN 12.7 12.0 - 16.0 g/dL 05/16/2023 9:[address] [facility] HEMATOCRIT 41.5 33.0 - 51.0 % 05/16/2023 9:[address] [facility] MCV 88 80 - 100 fL 05/16/2023 9:[address] [facility] MCH 26.8 26.0 - 34.0 pg 05/16/2023 9:[address] [facility] MCHC 30.6(L) 32.0 - 36.0 g/dL 05/16/2023 9:[address] [facility] RDW 17.4(H) 11.5 - 15.5 % 05/16/2023 9:[address] [facility] PLATELET COUNT 373 140 - 440 thou/cu mm 05/16/2023 9:[address] [facility] MPV 11.8(H) 6.5 - 11.0 fL 05/16/2023 9:[address] [facility] NRBC 0.0 % 05/16/2023 9:[address] [facility] ABS NRBC 0.0 thou /cu mm 05/16/2023 9:[address] [facility] Blood BLOOD SPECIMEN / Unknown Butterfly / Unknown 05/16/2023 8:59 AM CDT 05/16/2023 9:39 AM CDT Martha Buckley MD HEMATOLOGY [facility] [address] [place] [address], * (ABNORMAL) BASIC METABOLIC PANEL (05/16/2023 8:59 AM CDT) SODIUM 138 136 - 145 mmol/L 05/16/2023 10:[address] [facility] POTASSIUM 4.5 3.5 - 5.1 mmol/L 05/16/2023 10:[address] [facility] CHLORIDE 100 98 - 107 mmol/L 05/16/2023 10:[address] [facility] CO2,TOTAL 27 22 - 29 mmol/L 05/16/2023 10:[address] [facility] ANION GAP 11 5 - 18 05/16/2023 10:[address] [facility] GLUCOSE 126(H) 70 - 99 mg/dL 05/16/2023 10:[address] [facility] CALCIUM 9.8 8.8 - 10.2 mg/dL 05/16/2023 10:12 AM [facility] BUN 31(H) 8 - 23 mg/dL 05/16/2023 10:12 AM [facility] CREATININE 1.19(H) 0.50 - 0.90 mg/dL 05/16/2023 10:[address] [facility] BUN/CREAT RATIO 26(H) 10 - 20 10:12 AM [facility] eGFR 50(L) >90 mL/min/1.7 3m2 05/16/2023 10:12 AM [facility] Comment:As of 2021, eG FR [...] 9:39 AM CDT Martha Buckley MD CHEMISTRY [facility] [address] [place] [address], * (ABNORMAL) ARTERIAL BLOOD GAS (05/16/2023 4:28 AM CDT) PH, ARTERIAL 7.40 7.35 - 7.45 05/16/2023 4:[address] [facility] PCO2, ARTERIAL 45 32 - 45 mmHg 05/16/19 4:[address] [facility] PO2, ARTERIAL 108 83 - 108 mmHg 05/16/2023 4:[address] [facility] HCO3, ARTERIAL 28 21 - 28 mmol/L 05/16/2023 4:[address] [facility] BASE EXCESS, ARTERIAL 2.5 -2.0 - 3.0 05/16/2023 4:[address] [facility] O2 SATURATION, ARTERIAL 99(H) 94 - 98 % 05/16/2023 4:[address] [facility] INSPIRED O2 100 05/16/2023 4:[address] [facility] Comment:Unit of Measure: Lit ers (L) if <=20; Percent (%) if >20 PATIENT TEMPERATURE 37.0 Degrees C 05/16/2023 4:[address] [facility] Blood ARTERIAL BLOOD SPECIMEN / Unknown Arterial / Unknown 05/16/2023 4:28 AM CDT 05/16/2023 4:36 AM CDT Omi Nur MD CHEMISTRY [facility] [address] [place] [id number], from Last 3 Months Advance Directives * Full Code (Latest Code Status on File) Date Activated Date Inactivated Comments 05/15/2023 7:34 PM 05/20/2023 8:16 PM Question Answer Comments Code Status Discussion: Reviewed Preferences Care Teams Child Welfare Counselor Relationship Specialty Start Date End Date Ciara Jon MD [address] [place] [id number] PCP - General Internal Medicine 01/01/22
== END 2023-05-15 17:14 | disposition home or self-care (01) ==
LOC: AMB 05-21 17:27
PROVIDERS: PCP Internal Medicine; Visit Provider Emergency Medicine
DX: J93.9 Pneumothorax, unspecified (principal)
CPT/HCPCS: A0425; A0427

== ENCOUNTER 2023-06-10 12:43 | Outpatient (CLI) | payer MEDICARE, SELFPAY ==
--- OUTSIDE RECORDS SUMMARY | 2023-06-10 12:47 | XMS_ITS | Clinical Summary ---
Author Name Unknown Organization [employer] [facility] Address [place], [place] [address] Care Team Providers Care Spray Rig Operator Name Role Phone Ciara Jon MD Primary Care Provider +1- [phone] Allergies No known active allergies Medications Medication [...] - 05/20/2023 6:16 PM CDT Hospital Encounter [facility] [address] [place] [address] [facility], w Hospitalists Of Omi Nur MD Pensa, [...] Height 152.4 cm (5') 04/11/2022 1:00 PM THREAD WEAVER Body Mass Index 45.21 04/11/2022 1:00 PM THREAD WEAVER Plan of Treatment Health Maintenance Due Date [...] 11.0 thou/cu mm 2023 7:14 AM CDT [facility] NRBC 0.0 % 2023 7:14 AM CDT [facility] ABS NRBC 0.0 thou /cu mm 2023 7:14 AM CDT [facility] Blood BLOOD SPECIMEN / Unknown Venipuncture / Unknown 2023 6:39 AM CDT 2023 7:04 AM CDT Katie Diaz MD HEMATOLOGY [facility] [address] [place] [id number], * (ABNORMAL) Creatinine AM (2023 6:39 AM CDT) Only the most recent of3 resultswithin the time period is included. eGFR 59(L) >90 mL/min/1.7 3m2 2023 7:38 AM CDT [facility] Comment:As of 2021, eG FR is calculated by the CKD-EPI creatinine equation without race adjustment. ??eGFR can be influenced by muscle mass, exercise, and diet. ??The reported eGFR is an estimation only and is only applicable if the renal function is stable. CREATININE 1.04(H) 0.50 - 0.90 mg/dL 2023 7:38 AM CDT [facility] Blood BLOOD SPECIMEN / Unknown Venipuncture / Unknown 2023 6:39 AM CDT 2023 7:04 AM CDT Katie Diaz MD CHEMISTRY Performing Organization Address City/[facility] Co de Phone Number [facility] [address] [place] [address], [place] * Sodium AM (05/18/2023 6:04 AM CDT) SODIUM 140 136 - 145 mmol/L 05/18/2023 6:46 AM CDT [facility] Blood BLOOD SPECIMEN / Unknown Butterfly / Unknown 05/18/2023 6:04 AM CDT 05/18/2023 6:12 AM CDT Santiago Saldana MD CHEMISTRY Performing Organization Address [facility] Co de Phone Number [facility] [address] [place] [address], [place] * Potassium AM (05/18/2023 6:04 AM CDT) POTASSIUM 3.9 3.5 - 5.1 mmol/L 05/18/2023 6:46 AM CDT [facility] Blood BLOOD SPECIMEN / Unknown Butterfly / Unknown 05/18/2023 6:04 AM CDT 05/18/2023 6:12 AM CDT Santiago Saldana MD CHEMISTRY Performing Organization Address [facility] Co de Phone Number [facility] [address] [place] [address], [place] * (ABNORMAL) PRO-BNP (05/18/2023 6:04 AM CDT) PRO-BNP 148(H) <125 pg/mL 05/18/2023 8:36 AM CDT [facility] Blood BLOOD SPECIMEN / Unknown Butterfly / Unknown 05/18/2023 6:04 AM CDT 05/18/2023 6:12 AM CDT Narrative [facility] - 05/18/2023 8:36 AM CDT The [...] failure. ? Katie Diaz MD SEND OUTS [facility] [address] [place] [address], * (ABNORMAL) CBC W PLT NO DIFF (05/16/2023 8:59 AM CDT) WHITE BLOOD COUNT 19.0(H) 4.5 - 11.0 thou/cu mm 05/16/2023 9:55 AM CDT [facility] RED BLOOD COUNT 4.74 4.00 - 5.20 mil/cu mm 05/16/2023 9:55 AM CDT [facility] HEMOGLOBIN 12.7 12.0 - 16.0 g/dL 05/16/2023 9:55 AM CDT [facility] HEMATOCRIT 41.5 33.0 - 51.0 % 05/16/2023 9:55 AM CDT [facility] MCV 88 80 - 100 fL 05/16/2023 9:55 AM CDT [facility] MCH 26.8 26.0 - 34.0 pg 05/16/2023 9:55 AM CDT [facility] MCHC 30.6(L) 32.0 - 36.0 g/dL 05/16/2023 9:55 AM CDT [facility] RDW 17.4(H) 11.5 - 15.5 % 05/16/2023 9:55 AM CDT [facility] PLATELET COUNT 373 140 - 440 thou/cu mm 05/16/2023 9:55 AM CDT [facility] MPV 11.8(H) 6.5 - 11.0 fL 05/16/2023 9:55 AM CDT [facility] NRBC 0.0 % 05/16/2023 9:55 AM CDT [facility] ABS NRBC 0.0 thou /cu mm 05/16/2023 9:55 AM CDT [facility] Blood BLOOD SPECIMEN / Unknown Butterfly / Unknown 05/16/2023 8:59 AM CDT 05/16/2023 9:39 AM CDT Martha Buckley MD HEMATOLOGY [facility] [address] [place] [address], * (ABNORMAL) BASIC METABOLIC PANEL (05/16/2023 8:59 AM CDT) SODIUM 138 136 - 145 mmol/L 05/16/2023 10:12 AM CDT [facility] POTASSIUM 4.5 3.5 - 5.1 mmol/L 05/16/2023 10:12 AM T [facility] CHLORIDE 100 98 - 107 mmol/L 05/16/2023 10:12 AM T [facility] CO2,TOTAL 27 22 - 29 mmol/L 05/16/2023 10:12 AM T [facility] ANION GAP 11 5 - 18 05/16/2023 10:12 AM T [facility] GLUCOSE 126(H) 70 - 99 mg/dL 05/16/2023 10:12 AM T [facility] CALCIUM 9.8 8.8 - 10.2 mg/dL 05/16/2023 10:[address] [facility] BUN 31(H) 8 - 23 mg/dL 05/16/2023 10:[address] [facility] CREATININE 1.19(H) 0.50 - 0.90 mg/dL 05/16/2023 10:12 AM T [facility] BUN/CREAT RATIO 26(H) 10 - 20 10:[address] [facility] eGFR 50(L) >90 mL/min/1.7 3m2 05/16/2023 10:[address] [facility] Comment:As of 2021, eG [...] 9:39 AM CDT Martha Buckley MD CHEMISTRY [facility] [address] [place] [address], * (ABNORMAL) ARTERIAL BLOOD GAS (05/16/2023 4:28 AM CDT) PH, ARTERIAL 7.40 7.35 - 7.45 05/16/2023 4:39 AM CDT [facility] PCO2, ARTERIAL 45 32 - 45 mmHg 05/16/19 4:39 AM CDT [facility] PO2, ARTERIAL 108 83 - 108 mmHg 05/16/2023 4:39 AM CDT [facility] HCO3, ARTERIAL 28 21 - 28 mmol/L 05/16/2023 4:39 AM CDT [facility] BASE EXCESS, ARTERIAL 2.5 -2.0 - 3.0 05/16/2023 4:39 AM CDT [facility] O2 SATURATION, ARTERIAL 99(H) 94 - 98 % 05/16/2023 4:39 AM CDT [facility] INSPIRED O2 100 05/16/2023 4:39 AM CDT [facility] Comment:Unit of Measure: Lit ers (L) if <=20; Percent (%) if >20 PATIENT TEMPERATURE 37.0 Degrees C 05/16/2023 4:39 AM CDT [facility] Blood ARTERIAL BLOOD SPECIMEN / Unknown Arterial / Unknown 05/16/2023 4:28 AM CDT 05/16/2023 4:36 AM CDT Omi Nur MD CHEMISTRY [facility] [address] [place] [id number], from Last 3 Months Advance Directives * Full Code (Latest Code Status on File) Date Activated Date Inactivated Comments 05/15/2023 7:34 PM 05/20/2023 8:16 PM Question Answer Comments Code Status Discussion: Reviewed Preferences Care Teams Spray Rig Operator Relationship Specialty Start Date End Date Ciara Jon MD [address] [place] [id number] PCP - General Internal Medicine 01/01/22
--- NOTE | 2023-06-10 13:00 | MR_ITS ---
Patient: KADE STRICKLAND Facility:?[facility] RIS Patient ID:?[id number] Site Patient ID:?[id number]. Site :?[id number] Study:?MRI-Abdomen W/ and W/O Cont 20 CC DOATERM LIVER-06/10/2023 2:06:01 PM Ordering Physician:GILBERT FENG Final Report: INDICATION: Hepatomegaly; evaluation liver lesion. Comparison: CT chest with intravenous contrast May 15, 2023 and 12/15/2022. TECHNIQUE: Precontrast T1 and T2 weighted imaging; T2 haste imaging; diffusion-weighted imaging; in- and out of phase imaging; postcontrast imaging including subtraction; 20 cc clariscan Contrast was injected. FINDINGS: The liver is normal in size measuring 12.9 cm in the maximum vertical dimension in the mid axillary line. A 7.6 x 5.6 cm septated complex lesion with enhancement of the septae and nodularity involving segment 6 of the liver. Possible hemorrhagic products within this lesion. No other focal hepatic or splenic pathology. No pancreatic pathology. Gallstones. No adrenal pathology. Kidneys are unremarkable. No retroperitoneal lymphadenopathy. No evidence of abdominal ascites. IMPRESSION: 1. A 7.6 x 5.6 cm septated complex cystic/solid lesion segment 6 of the liver with enhancing septated and internal complexity and possibly hemorrhagic products; metastatic disease cannot be ruled out; image guided aspiration/biopsy suggested for further assessment. 2. Gallstones Dictated by Roge Rivera MD @ 06/11/2023 1:05:39 PM Signed by:?Roge Rivera MD @06/11/2023 1:05:39 PM (Electronic Signature)
== END 2023-06-10 12:44 | disposition home or self-care (01) ==
LOC: MRI 12:43
PROVIDERS: PCP Internal Medicine; Visit Provider Internal Medicine
DX: R16.0 Hepatomegaly, not elsewhere classified (principal); K76.89 Other specified diseases of liver; K80.20 Calculus of gallbladder without cholecystitis without obstruction
CPT/HCPCS: 74183; A9575

== ENCOUNTER 2023-10-13 08:00 | Emergency (ER) | payer MEDICARE, SELFPAY ==
[2023-10-13] VITALS (13 sets, daily range): BP systolic 119; BP diastolic 62; PULSE 70–97; RESP 28; TEMP 36.4; O2SAT 86–95; BMI 36.6
--- NOTE | 2023-10-13 09:05 | CRLHL7_ITS ---
For Patients: As a result of the Century Cures Act, medical imaging exams and procedure reports are released immediately into your electronic medical record. You may view this report before your referring provider. If you have questions, please contact your health care provider. Indication: Shortness of breath. Technique: Chest 2 views. Comparison: May 27, 2023. February 19, 2022. Findings/Impression: Cardiovascular and mediastinum: Heart size and vasculature are normal in caliber and appearance. Lungs and pleural spaces: There is a 2 cm nodule in the left mid lung zone. This was very faint on the prior study from 5 months ago and not present on the prior study from February 2022. This is suspicious for neoplasm and warrants further evaluation with CT. Right lateral mid lung pleural thickening is new and nonspecific. Remainder of the lungs and pleural spaces are clear. No pneumothorax. No other findings to explain shortness of breath. Bones and soft tissues: No significant findings. Dictated by Jose Maria Nguyen MD @ 10/13/2023 9:45:00 AM (Electronically Signed)
--- OUTSIDE RECORDS SUMMARY | 2023-10-13 09:44 | XMS_ITS | Clinical Summary ---
Author Organization [facility] [facility] Address [place], [place] [address] Care Team Providers Care Rn Heart Name Role Phone Ciara Jon MD Primary Care Provider [phone]- [phone] Allergies No known active allergies Medications Medication Sig Dispensed Refills Start Date End Date Status albuterol HFA (PRO-AIR; VENTOLIN; PROVENTIL) 90 mcg/actuation inhaler Inhale 2 Puffs by mouth every 4 hours if needed. Active fluticasone propion-salmeteroL (Advair Diskus) 250-50 mcg/Dose diskus inhaler Inhale 1 Puff by mouth two times daily. Active levothyroxine (Synthroid) 150 mcg tablet Take 150 mcg by mouth at bedtime. Active albuterol-ipratropi um (DUONEB) (2.5-0.5 mg) in 3 mL NEBULIZATION [...] the same capsule for full dose. Active lisinopril-hydrochl orothiazide, 20-25 mg, (PRINZIDE, ZESTORETIC) 20-25 mg per tablet Take 2 Tablets by mouth at bedtime. Active azithromycin (Zithromax) 250 mg tablet Take 250 mg by mouth every Friday, Friday and Friday. TAKE ONE TABLET BY MOUTH THREE TIMES WEEKLY (takes at HS) Active acetaminophen (TYLENOL) 325 mg tabletIndications:P ain Take 2 Tablets (650 mg) by mouth every 6 hours if needed for Pain (For mild pain.). Max acetaminophen dose: 4000mg in 24 hrs. 30 Tablet 05/20/2023 Active lidocaine 4 % topical patchIndications:Pa in Apply to intact skin to cover most painful area for max 12hr per 24hr period. Only uses as needed. 30 Patch 05/20/2023 Active oxyCODONE (ROXICODONE) 5 mg immediate release tabletIndications:P ain Take 0.5 Tablets (2.5 mg) by mouth every 4 hours if needed for Pain (For moderate to severe pain.). 10 Tablet 05/20/2023 Active apixaban (Eliquis) 5 mg tabletIndications:H istory of pulmonary embolism Take 1 Tablet (5 mg) by mouth two times daily. Restart 05/20 evening. Take by mouth two times daily. 05/21/2023 Active Active Problems Problem Noted Date Diagnosed Date COPD with exacerbation 05/15/2023 Severe chronic obstructive pulmonary disease 05/2023 Morbid obesity with body mass index (BMI) of 40. 0 or higher 05/15/2023 Osteopenia 05/15/2023 Primary spontaneous pneumothorax 05/15/2023 Essential hypertension 03/23/2012 Hypothyroidism 03/23/2012 Nicotine dependence 03/23/2012 Social History Tobacco Use Types Packs/Day Years [...] Sign Reading Time Taken Comments Blood Pressure 113/72 06/23/2023 12:30 PM CDT Pulse 80 06/23/2023 12:30 PM CDT Temperature 36.7 ??C (98.1 ??F) 06/23/2023 9:05 AM CD T Respiratory Rate 16 06/23/2023 12:30 PM CDT Oxygen Saturation 95% 06/23/2023 12:30 PM CDT Inhaled Oxygen Concentration - - Weight 104.8 kg (231 lb) 06/23/2023 9:05 AM CDT Height 152.4 cm (5') 06/23/2023 9:05 AM CDT Body Mass Index 45.11 06/23/2023 9:05 AM CDT Plan of Treatment Health Maintenance Due Date [...] 2004 DEXA/DXA scan for age 65+ 05/20/2019 COVID-19 vaccine series (2022-24 season) 2023 11/21/2022, 12/06/2021, 07/24/2021, Additional history exists Depression screening for age 12+ 09/27/2023 09/27/19 23, 04/11/2022 Influenza for age 65+ 10/12/2023 Advance Directives * Full Code (Latest Code Status on File) Date Activated Date Inactivated Comments 05/15/2023 7:34 PM 05/20/2023 8:16 PM Question Answer Comments Code Status Discussion: Reviewed Preferences Care Teams Rn Heart Relationship Specialty Start Date End Date Ciara Jon MD [address] [place] [address] PCP - General Internal Medicine 01/01/22
[2023-10-13 10:20] LABS: Creatinine, Point-of-Care* 1.3 mg/dl (0.6-1.3)
--- NOTE | 2023-10-13 10:31 | CRLHL7_ITS ---
For Patients: As a result of the Century Cures Act, medical imaging exams and procedure reports are released immediately into your electronic medical record. You may view this report before your referring provider. If you have questions, please contact your health care provider. INDICATION: Shortness of breath TECHNIQUE: CT chest PE was acquired with 95 cc Isovue 370 IV contrast. COMPARISON: Same day chest radiograph FINDINGS: Supraclavicular: Unremarkable. Heart and vasculature: Contrast opacification of the pulmonary arterial tree is adequate. No sign of pulmonary embolism. Heart size is normal. Thoracic aorta and pulmonary artery are normal in caliber. Lungs and pleura: There is a left upper lobe 1.7 x 1.7 centimeter solid pulmonary nodule (4/70). There is an adjacent 0.3 centimeter nodule (5/60). Scattered areas of atelectasis/scarring in the right upper lobe. Upper lobe predominant mild centrilobular emphysema. No pleural effusions, pleural thickening, or pneumothorax. Lymph nodes/mediastinum: No mediastinal, hilar, or axillary adenopathy. Chest wall: No masses. Upper abdomen: There is a hypodense mass centered in segment 5 of the liver measuring 9 x 5.6 centimeters (4/190). Left hemorrhagic renal cyst. Bones: Right 6th rib fracture appears acute, and right 7th rib with sclerosis appears subacute to chronic. There is a soft tissue nodularity in the region of the right 6th rib measuring 1.9 centimeters (4/74). Adjacent old left rib fracture. IMPRESSION: There is a left upper lobe pulmonary nodule, which is suspicious for malignancy. There is an adjacent 3 millimeter nodule, concerning for satellite nodule. Consider FDG/PET and/or biopsy. Right 6th rib fracture, which may be pathologic considering soft tissue nodularity surrounding this region, though this may represent a small hematoma surrounding the rib. There is a hypodense lesion centered in segment 5 of the liver measuring up to 9 centimeters, which is incompletely evaluated on this exam. Consider CT of the abdomen for further evaluation. Right upper lobe atelectasis/scarring. Please note that all CT scans at this facility use dose modulation, iterative reconstruction, and/or weight-based dosing when appropriate to reduce radiation dose to as low as reasonably achievable. Dictated by Monalisa Nicole MD @ 10/13/2023 11:19:59 AM (Electronically Signed)
--- NOTE | 2023-10-13 10:38 | RESP.RT ---
Patient is a current smoker. She states that she was prescribed PRN O2 and she can use it as she feels. She states that she usually wears the 2L NC at night when she sleeps. She denies ever having a sleep study and got irritated when asked if she ever had one, going into how she would never wear a CPAP mask as she already has way to many things attached to her head at night. It was unclear what the other things were, but she was not wanting to talk about it any further. We talked about taking her inhalers correctly and nebs at the appropriately scheduled times, and when to take her prn medications with a spacer. She did say multiple times that she takes her medications when she feels like she needs them.
--- NOTE | 2023-10-13 11:29 | ED.SOB ---
HPI - SOB/Dyspnea General Chief Complaint: Shortness of Breath/Dyspnea Stated Complaint: COPD difficulty breathing Time Seen by Provider: 10/13/23 08:07 History of Present Illness HPI Narrative: Patient is a 68-year-old woman with longstanding COPD who has worsening of her chronic symptoms. She is normally on oxygen and has only been using it as needed. She has had no productive cough. Patient continues to smoke. She has had no signs of infection such as fevers chills no chest pain. No nausea no vomiting. I did visit with the respiratory therapist who knows the patient well who states that the patient is likely near her baseline currently. Chest x-ray done shows a suspicious nodule. I did proceed with a CT of her chest and she does have what looks like a new malignancy with bony and questionable liver metastases. Related Data Home Medications ?Medication ?Instructions ?Recorded ?Confirmed tiotropium bromide 18 mcg capsule 1 cap inhalation DAILY 12/16/22 05/27/23 with inhalation device (Spiriva with HandiHaler) Previous Rx's ?Medication ?Instructions ?Recorded albuterol sulfate 2.5 mg/3 mL 2.5 mg (3 mL) inhalation Q6H PRN 02/07/22 (0.083 %) solution for nebulization bronchospasm #75 mL fluticasone 250 mcg-salmeterol 50 1 inh inhalation BID #60 ea 11/21/22 mcg/dose blistr powdr for inhalation (Advair Diskus) levothyroxine 150 mcg tablet 150 mcg PO DAILY #90 tabs 12/30/22 lisinopril 20 2 tab PO HS #180 tabs 12/30/22 mg-hydrochlorothiazide 25 mg tablet nicotine (polacrilex) 4 mg gum 4 mg buccal Q4-8H PRN nicotine 12/30/22 cravings #100 ea albuterol sulfate 90 mcg/actuation 2 - 4 puff inhalation Q2-4H PRN 01/30/23 aerosol inhaler (Proventil HFA) shortness of breath or wheezing #8.5 grams azithromycin 250 mg tablet 250 mg PO 3XW #36 tabs 03/05/23 prednisone 20 mg tablet 10 - 40 mg (0.5 - 2 x 20 mg) PO 05/27/23 DAILY #18 tabs ipratropium 0.5 mg-albuterol 3 mg 3 ml inhalation QID PRN for 07/15/23 (2.5 mg base)/3 mL nebulization dyspnea #180 mL soln apixaban 5 mg tablet (Eliquis) 5 mg PO BID #180 tabs 08/07/23 Allergies Allergy/AdvReac Type Severity Reaction Status Date / Time No Known Drug Allergies Allergy Verified 10/13/23 10:50 Review of Systems Status of ROS: Reports: 10 or more systems reviewed and unremarkable except as noted in History and below PFSH PFS Medical History History of pulmonary embolism ?Z86.711 - Personal history of pulmonary embolism (ICD-10) Surgical History History of tubal ligation (03/23/12) ?Z98.51 - Tubal ligation status (ICD-10) Family History Son Healthy adult Daughter Healthy adult Social History Narrative: Does not know family history because she was adopted. She lives outside of [place]. Living on the main level in a home with her daughter. Has been cutting down smoking over the past two months, now down to occasional smoking. Rarely drinks alcohol. Occassional use of marajuana gummies at night. No other recreational drugs. Code status is DNR. Her daughter, Nicky, and her son, Norm, are healthcare power of attorney law clerk. Daughter lives with her. Son lives next door. What is your current living situation?: I presently have a place to live Problems where you live: no known problems Problems where you live details: NA In the past 12 months, utilities in danger of being shut off: no In past 12 months, lack of transportation kept you from medical appts, meetings, work, or getting things needed for daily living: no In the past 12 mos, have been you worried that your food would run out before you had money to buy more?: never true In the past 12 mos, the food you bought just didn't last and you didn't have money to buy more?: never true Highest level of school completed/degree received: high school graduate Smoking Status: Former smoker What tobacco products do you use: cigarettes Smoking packs per day: 0.5 Smoking cigarettes per day: 10.0 Years smoked: 50 Smoking pack-years: 25.00 Smoking quit date/years: <= 15 years ago Do you use any of these nicotine containing products: None Second hand tobacco smoke exposure: Yes How often do you have a drink containing alcohol: monthly or less Alcohol type: hard liquor Alcohol type details: will have the occasional drink with dinner sometimes How often do you have six or more drinks on one occasion: Never AUDIT-C Alcohol total score: 1 Non-prescribed substance use: denies use Caffeine: Yes (coffee, red bull) How often does anyone, including family, friends and others, physically hurt you: never How often does anyone, including family, friends and others, insult or talk down to you: never How often does anyone, including family, friends and others, threaten you with harm: never How often does anyone, including family, friends and others, scream or curse at you: never Little interest or pleasure in doing things: not at all Feeling down, depressed, or hopeless: not at all service: No Exam Narrative: Exam Narrative: EXAM GENERAL: Patient appears chronically ill breathing oxygen via nasal cannula. EYES: No scleral icterus. LYMPH: No supraclavicular or cervical lymphadenopathy. SKIN: Visible skin seen during exam normal or with benign process only. EXT: No dependent lower extremity pedal edema. HEART: Decreased breath sounds bilaterally. LUNGS: Clear to auscultation bilaterally with no crackles or wheezes. ABD: Soft, non tender, non distended. PSYCH: Good eye contact, speech is not pressured. Const: Vital Signs, click to edit/add: Vital Signs - 24 hr 10/13/23 08:14 10/13/23 08:24 10/13/23 08:24 Temperature 97.6 F Pulse Rate [Pulse Oximeter] 97 Respiratory Rate 28 H Blood Pressure [Ri ght Upper Arm] 119/62 Pulse Oximetry 86 L 91 91 Oxygen Delivery Me thod Room Air Nasal Cannula Oxygen Flow Rate 2 Course Course ED Course: Patient seen and examined. Checks x-ray CT reviewed Vital Signs Vital signs: Initial Vital Signs Temperature 97.6 F 10/13/23 08:14 Temperature Source Temporal Artery Scan 10/13/23 08:14 Pulse Rate 97 10/13/23 08:14 Respiratory Rate 28 H 10/13/23 08:14 Blood Pressure 119/62 10/13/23 08:14 Blood Pressure Mean 81 10/13/23 08:14 Blood Pressure Position Sitting 10/13/23 08:14 Pulse Oximetry 86 L 10/13/23 08:14 Oxygen Delivery Method Room Air 10/13/23 08:14 Vital Signs Temperature 97.6 F 10/13/23 08:14 Pulse Rate 97 10/13/23 08:14 Respiratory Rate 28 H 10/13/23 08:14 Blood Pressure 119/62 10/13/23 08:14 Pulse Oximetry 86 L 10/13/23 08:14 Oxygen Delivery Method Room Air 10/13/23 08:14 Temperature 97.6 F 10/13/23 08:14 Pulse Rate 97 10/13/23 08:14 Respiratory Rate 28 H 10/13/23 08:14 Blood Pressure 119/62 10/13/23 08:14 Pulse Oximetry 91 10/13/23 08:24 Oxygen Delivery Method Nasal Cannula 10/13/23 08:24 Oxygen Flow Rate 2 10/13/23 08:24 MDM - SOB/Dyspnea MDM Narrative Medical decision making narrative: Patient presents with COPD exacerbation. She has what appears to be new lung malignancy upon evaluation. I did not do labs I do think this is strictly a respiratory exacerbation. I did do a CT of her chest due to her history of pulmonary embolism and she does have what appears to be in new lung malignancy of the needs further evaluation. Will treat her COPD exacerbation with Zithromax and prednisone with continued oxygen and nebulizer treatments. Patient is at baseline per respiratory therapy. We will arrange for outpatient follow-up with her primary physician. Lab Data Labs: Lab Results 10/13/23 Range/Units 10:12 POC Creatinine 1.3 (0.6-1.3) mg/dl Discharge Plan Discharge Clinical Impression: Severe chronic obstructive pulmonary disease Patient Disposition: Home, Self-Care Condition: Stable Instructions: COPD (Chronic Obstructive Pulmonary Disease) (ED) Additional Instructions: Zithromax as directed Prednisone as directed Continue outpatient treatment Follow-up with your doctor this week to discuss CT findings. Stop smoking Activity Level: No Restrictions Discharge Diet: Regular Prescriptions: No Action albuterol sulfate 2.5 mg /3 mL (0.083 %) solution for nebulization 2.5 mg inhalation Q6H PRN (Reason: bronchospasm) Qty: 75 5RF fluticasone propion-salmeterol [Advair Diskus] 250-50 mcg/dose blister with device 1 inh inhalation BID Qty: 60 11RF prednisone 20 mg tablet 10 - 40 mg PO DAILY Qty: 18 4RF Rx Instructions: 40 MG PO DAILY FOR 5 DAYS, THEN 20 MG PO DAILY FOR 5 DAYS, THEN 10 MG PO DAILY FOR 5 DAYS. nicotine (polacrilex) 4 mg gum 4 mg buccal Q4-8H PRN (Reason: nicotine cravings) Qty: 100 8RF lisinopril-hydrochlorothiazide 20-25 mg tablet 2 tab PO HS Qty: 180 3RF tiotropium bromide [Spiriva with HandiHaler] 18 mcg capsule, w/inhalation device 1 cap inhalation DAILY Rx Instructions: puncture 1 cap using device; one dose = 2 inhalations levothyroxine 150 mcg tablet 150 mcg PO DAILY Qty: 90 3RF albuterol sulfate [Proventil HFA] 90 mcg/actuation HFA aerosol inhaler 2 - 4 puff inhalation Q2-4H PRN (Reason: shortness of breath or wheezing) Qty: 8.5 11RF azithromycin 250 mg tablet 250 mg PO 3XW Qty: 36 3RF ipratropium-albuterol 0.5 mg-3 mg(2.5 mg base)/3 mL solution for nebulization 3 ml inhalation QID PRN (Reason: for dyspnea) Qty: 180 5RF Eliquis 5 mg tablet 5 mg PO BID Qty: 180 3RF Follow Up/Referrals: Ciara Jon MD [Primary Care Provider] - Stand Alone Forms: [facility] Info Instructions
== END 2023-10-13 11:48 | disposition home or self-care (01) ==
PROVIDERS: Emergency Provider Internal Medicine; PCP Internal Medicine
DX: J44.9 Chronic obstructive pulmonary disease, unspecified (principal)
CPT/HCPCS: 71046; 71275; 82565; 94761; 99283; 99284; 99285; Q9967

== ENCOUNTER 2023-11-17 10:59 | Outpatient (CLI) | payer MEDICARE, SELFPAY ==
--- OUTSIDE RECORDS SUMMARY | 2023-11-21 04:27 | XMS_ITS | Clinical Summary ---
Author Organization [employer] [facility] [employer] Address [place], [place] [address] Care Team Providers Care Health Program Specialist Name Role Phone Ciara Jon MD Primary Care Provider +1- [phone] Allergies No known active allergies Medications Medication [...] Encounters Date Type Department Care Team Description 10/17/2023 Telephone [facility] [place] [address] [facility] [address] [place] [address] Tomás De Jesus MD Appointment Request from Last 3 Months Social History Tobacco [...] 06/23/2023 9:05 AM CDT Plan of Treatment Upcoming Encounters Date Type Department Care Team (Late st Contact Info) Description 01/19/2024 11:20 AM [employer]ICE [employer]OR Office Visit [facility] [place] [address] [address] [place] [phone] Bc Leon MD [address] [facility] [address] [place], [place] [id number] Health Maintenance Due Date Last Done Comments [...] 05/20/2019 Depression screening for age 12+ 09/27/2023 09/27/19 23, 04/11/2022 COVID-19 vaccine series ( season) 2023 11/21/2022, 12/06/2021, 07/24/2021, Additional history exists Influenza for age 65+ 10/12/2023 Advance Directives * Full Code (Latest Code Status on File) Date Activated Date Inactivated Comments 05/15/2023 7:34 PM 05/20/2023 8:16 PM Question Answer Comments Code Status Discussion: Reviewed Preferences Care Teams Health Program Specialist Relationship Specialty Start Date End Date Ciara Jon MD [address] [place] [address] PCP - General Internal Medicine 01/01/22
== END 2023-11-17 11:00 | disposition home or self-care (01) ==
LOC: NFLDREF 11-21 04:25
PROVIDERS: PCP Internal Medicine; Referring Provider Internal Medicine; Visit Provider Internal Medicine
DX: E03.9 Hypothyroidism, unspecified (principal); M85.80 Other specified disorders of bone density and structure, unspecified site; I10 Essential (primary) hypertension; Z13.220 Encounter for screening for lipoid disorders
CPT/HCPCS: 80048; 80061; 82306; 84443

== ENCOUNTER 2023-12-18 16:40 | Outpatient (CLI) | payer MEDICARE, SELFPAY ==
--- OUTSIDE RECORDS SUMMARY | 2023-12-18 16:45 | XMS_ITS | Clinical Summary ---
Author Organization [facility] Address [address], [place] [address] Care Team Providers Care Tipple Boss Name Role Phone Ciara Jon MD Primary Care Provider +1- [phone] Source Comments You are receiving this document as you are listed as the primary care provider,follow-up provider, or the patient has been referred to you for consultation.This is in compliance with the Medicare and[facility] EHR Incentive Program,which states Providers who transition their patient to another setting of careor provider of care or refers their patient to another provider of care shouldprovide summary care record for each transition of care or referral. [facility] Allergies No known active allergies Medications Medication Sig Dispensed Refills Start Date End Date Status varenicline (CHANTIX) 1 MG tablet Take 1 Tablet (1 mg) by mouth two times a day. 11/25/2023 Active ALBUterol sulfate HFA 108 (90 Base) MCG/ACT inhaler SMARTSI-4 Puff(s) By Mouth Every 2-4 Hours PRN Active ELIQUIS 5 MG tablet Take 1 Tablet (5 mg) by mouth two times a day. 12/02/2023 Active azithromycin (ZITHROMAX) 250 MG tablet Take 1 Tablet (250 mg) by mouth three times a week. Active Vitamin D, Ergocalciferol, 1.25 MG (33193 UT) CAPS Take 1 Capsule (50,000 Units) by mouth once every week. 11/25/2023 Active fluticasone-salmeterol (ADVAIR) 250-50 MCG/ACT diskus inhaler 1 Puff two times a day. Active guaiFENesin-codeine (ROBITUSSINAC) 100-10 MG/5ML solution Take 10 mL by mouth. 11/25/2023 Active tiotropium (SPIRIVA RESPIMAT) 2.5 MCG/ACT inhaler Inhale 2 Puffs daily. 1 Each 11 12/09/2023 Active Active Problems Problem Noted Date Diagnosed Date Tobacco abuse 12/10/2023 Lung mass 12/10/2023 Pulmonary emphysema 12/10/2023 COPD, severe 12/10/2023 Oxygen dependent 12/10/2023 Encounters Date Type Department Care Team Description 12/09/2023 10:00 AM CDT Office Visit [facility] [address] [place] [address] Boaz Loco MD Other emphysema (HRC) (Primary Dx); COPD, severe (HRC); Oxygen dependent (HRC); Pulmonary emphysema, unspecified emphysema type (HRC); Lung mass; Tobacco abuse (HRC) 12/09/2023 8:14 AM CDT - 12/09/2023 11:59 PM CDT Hospital Encounter [facility] [address] [place] [address] Other emphysema (HRC) (Primary Dx) Discharge Disposition: Home 12/09/2023 Orders Only HIM DEPARTMENT Provider, MD Gil 12/03/2023 Telephone [facility] [address] [facility] [address] [place] [address] Boaz Loco MD Appt. Scheduled (Pt is scheduled for 12/09/23 ) 12/03/2023 Telephone [facility] [address] [facility] [address] [place] [address] Unknown, Physician 10/13/2023 12:05 AM CDT Ancillary Procedure Radiology PACS [address] [place] [address] Provider, Foreign Images 10/13/2023 Ancillary Procedure Radiology PACS [address] [place] [address] Provider, Foreign Images from Last 3 Months Social History Tobacco Use Types Packs/Day Years Used Date Smoking Tobacco: Some Days Cigarettes 0.3 54.6 Started: 1970 Tobacco Cessation:Ready to Q uit: Not Asked; Counseling Given: Not Answered Alcohol Use Standard Drinks/Week Comments Yes 0 (1 standard drink = 0.6 oz pur e alcohol) occ when out to dinner Sex and Gender Information Value Date Recorded Sex Assigned at Not on file Gender Identity Not on file Sexual Orientation Not on file Last Filed Vital Signs Vital Sign Reading Time Taken Comments Blood Pressure - - Pulse 102 12/09/2023 9:53 AM CDT Temperature - - Respiratory Rate - - Oxygen Saturation 84% 12/09/2023 9:53 AM CDT Inhaled Oxygen Concentration - - Weight 110.7 kg (244 lb) 12/09/2023 9:53 AM CDT Height 152.4 cm (5') 12/09/2023 9:53 AM CDT Body Mass Index 47.65 12/09/2023 9:53 AM CDT Plan of Treatment Upcoming Encounters Date Type Department Care Team (Late st Contact Info) Description 12/23/2023 3:30 PM CAN DRYER Office Visit Specialty Center 3931 Pulmonary Medicine [address] [facility] [place] [facility] [address] [place], [place] [address] Boaz Loco MD [address] [facility] [address] [place] [address] Health Maintenance Due Date Last Done Comments Colon Cancer Screening Plan Due 1955 Diabetes Screening- (based on age and BMI) 1955 Hep C Screening (Preventive Services) 1955 Medicare Welcome Visit 1955 Mammogram 1955 Cholesterol 05/20/1999 RSV (1 - Risk 60-74 years 1-dose series) 2014 Zoster/Shingles (2 of 3) 01/04/2016 11/09/2015 Dexa 05/20/2019 Pneumococcal 65+ Yrs (3 - PPSV23 or PCV20) 11/01/2020 11/02/2019, 05/24/2013 DTaP/Tdap/Td (2 - Tdap) 03/16/2022 03/16/2012 COVID-19 Vaccine ( season) 2023 11/21/2022, 12/06/2021, 07/24/2021, Additional history exists Influenza (#1) 2023 11/21/2022, 11/10, 11/13/2020 HepA Aged Out No longer eligi ble based on patient's age to complete this topic HepB Aged Out No longer eligi ble based on patient's age to complete this topic Hib Aged Out No longer eligi ble based on patient's age to complete this topic IPV (Polio) Aged Out No longer eligi ble based on patient's age to complete this topic Infant RSV Aged Out No longer eligi ble based on patient's age to complete this topic MCV4 Aged Out No longer eligi ble based on patient's age to complete this topic Procedures Procedure Name Priority Date/Time Associated Diagnosis Comments PULMONARY TEST MD 12/09/2023 COMPLETE PULMONARY FUNCTION TEST Routine 12/08/2023 8:54 AM CDT FOREIGN IMAGE(S) XR CHEST Routine 10/13/2023 12:05 AM CDT FOREIGN IMAGE(S) CT ANGIO CHEST Routine 10/13/2023 12:00 AM CDT from Last 3 Months Results * PULMONARY TEST MD (12/09/2023) Interface Provider DUMMY/OTHER/AR * Pulmonary Function Test - Complete (12/08/2023 8:54 AM CDT) 12/08/2023 8:54 AM CDT Boaz Loco MD PN PFT ORDERABLES Performing Organization Address City/[facility]/ZIP Co de Phone Number PN BERENICE * Foreign Image(S) XR Chest (10/13/2023 12:05 AM CDT) Narrative POCT - 12/09/2023 11:07 AM CDT These outside images have been uploaded into PACS. If the results were provided, they will be located in the patient's chart under the Media or Imaging tab. Foreign Images Provider RAD NON-REPORTAB LES POCT * Foreign Image(s) CT Angio Chest (10/13/2023 12:00 AM CDT) Narrative POCT - 12/09/2023 11:05 AM CDT These outside images have been uploaded into PACS. If the results were provided, they will be located in the patient's chart under the Media or Imaging tab. Foreign Images Provider RAD NON-REPORTAB LES POCT from Last 3 Months Care Teams Tipple Boss Relationship Specialty Start Date End Date Ciara Jon MD [address] [place] [address] PCP - General Internal Medicine 12/09/23
--- OUTSIDE RECORDS SUMMARY | 2023-12-18 16:45 | XMS_ITS | Encounter Summary ---
Author Organization [facility] Address [address], [place] [address] Care Team Providers Care Hull Grinder Name Role Phone Ciara Jon MD Primary Care Provider [phone]- [phone] Reason for Referral * (Routine) - New Request Specialty Diagnoses / Procedures Referred By Contac t Referred To Contact Procedures Pulmonary Function Test - Complete Boaz Loco MD [address] [facility] [address] [place] [address] Referral ID Status Reason Start Date Expiration Date V isits Requested Visits Authorized [id number] New Request 12/08/2023 03/08/2025 1 1 Encounter Details Date Type Department Care Team (Latest Contact Info) Description 12/09/2023 8:14 AM CDT - 12/09/2023 11:59 PM CDT Hospital Encounter [facility] 39[address] Pulmonary Lab [address] [place], [place] [address] Other emphysema (HRC) (Primary Dx) Discharge Disposition: Home Social History Tobacco Use Types Packs/Day Years Used Date Smoking Tobacco: Some Days Cigarettes 0.3 54.6 Started: 1970 Alcohol Use Standard Drinks/Week Comments Yes 0 (1 standard drink = 0.6 oz pur e alcohol) occ when out to dinner Sex and Gender Information Value Date Recorded Sex Assigned at Not on file Gender Identity Not on file Sexual Orientation Not on file documented as of this encounter Medications at Time of Discharge Medication Sig Dispensed Refills Start Date End Date ALBUterol sulfate HFA 108 (90 Base) MCG/ACT inhaler SMARTSI-4 Puff(s) By Mouth Every 2-4 Hours PRN azithromycin (ZITHROMAX) 250 MG tablet Take 1 Tablet (250 mg) by mouth three times a week. ELIQUIS 5 MG tablet Take 1 Tablet (5 mg) by mouth two times a day. 12/02/2023 fluticasone-salmeterol (ADVAIR) 250-50 MCG/ACT diskus inhaler 1 Puff two times a day. guaiFENesin-codeine (ROBITUSSINAC) 100-10 MG/5ML solution Take 10 mL by mouth. 11/25/2023 tiotropium (SPIRIVA RESPIMAT) 2.5 MCG/ACT inhaler Inhale 2 Puffs daily. 1 Each 11 12/09/2023 varenicline (CHANTIX) 1 MG tablet Take 1 Tablet (1 mg) by mouth two times a day. 11/25/2023 Vitamin D, Ergocalciferol, 1.25 MG (88644 UT) CAPS Take 1 Capsule (50,000 Units) by mouth once every week. 11/25/2023 documented as of this encounter Plan of Treatment Upcoming Encounters Date Type Department Care Team (Late st Contact Info) Description 12/23/2023 3:30 PM STUD MASTER/MISTRESS Office Visit [facility]ty Center 39[address] Pulmonary Medicine [address] [place] [address] Boaz Loco MD [address] [facility] [address] [place] [address] documented as of this encounter Procedures Procedure Name Priority Date/Time Associated Diagnosis Comments COMPLETE PULMONARY FUNCTION TEST Routine 12/08/2023 8:54 AM CDT documented in this encounter Results * Pulmonary Function Test - Complete (12/08/2023 8:54 AM CDT) 12/08/2023 8:54 AM CDT Boaz Loco MD PN PFT ORDERABLES IGNACIO BERENICE documented in this encounter Visit Diagnoses Diagnosis Other emphysema (HRC)- Primary Other emphysema documented in this encounter Care Teams Hull Grinder Relationship Specialty Start Date End Date Ciara Jon MD [address] [place] [address] PCP - General Internal Medicine 12/09/23 documented as of this encounter
--- OUTSIDE RECORDS SUMMARY | 2023-12-18 16:45 | XMS_ITS | Encounter Summary ---
[facility] Address [address] [address] Care Team Providers Care Payable Processor Name Role Phone Ciara Jon MD Primary Care Provider +1- [phone] Encounter Details Date Type Department Care Team (Latest Contact Info) Description 12/09/2023 Orders Only HIM DEPARTMENT ProviderGil [place] [address] Social History Tobacco Use Types Packs/Day Years [...] on file documented as of this encounter Plan of Treatment Upcoming Encounters Date Type Department Care Team (Late st Contact Info) Description 12/23/2023 3:30 PM DETECTIVE CAPTAIN Office Visit Specialty Center 3931 Pulmonary Medicine [address] [facility] [place] [address] Boaz Loco MD [address] [facility] [address] [place] [address] documented as of this encounter Procedures Procedure Name Priority Date/Time Associated Diagnosis Comments PULMONARY TEST SC 12/09/2023 documented in this encounter Results * PULMONARY TEST SC (12/09/2023) Interface Provider MD DUMMY/OTHER/AR documented in this encounter Visit Diagnoses Not on filedocumented in this encounter Care Teams Payable Processor Relationship Specialty Start Date End Date Ciara Jon MD [address] [place] [address] PCP - General Internal Medicine 12/09/23 documented as of this encounter
--- OUTSIDE RECORDS SUMMARY | 2023-12-18 16:45 | XMS_ITS | Encounter Summary ---
Author Organization [facility] Address [address], [place] [address] Care Team Providers Care Motel Operator Name Role Phone Unassigned, Provider Primary Care Provider Unava ilable Encounter Details Date Type Department Care Team (Late st Contact Info) Description 10/13/2023 Ancillary Procedure [facility] Radiology PACS [address] [place] [address] Provider, Foreign Images [address] [place] [address] Social History Tobacco Use Types Packs/Day Years Used Date Smoking Tobacco: Never Assessed Sex and Gender Information Value Date Recorded Sex Assigned at Not on file Gender Identity Not on file Sexual Orientation Not on file documented as of this encounter Plan of Treatment Upcoming Encounters Date Type Department Care Team (Late st Contact Info) Description 12/23/2023 3:30 PM CIRCUIT BOARD INSPECTOR Office Visit Specialty Center 3931 Pulmonary Medicine [address] [facility] [place] [address] Boaz Loco MD [address] [facility] [address] [place] [address] documented as of this encounter Procedures Procedure Name Priority Date/Time Associated Diagnosis Comments FOREIGN IMAGE(S) CT ANGIO CHEST Routine 10/13/2023 12:00 AM CDT documented in this encounter Results * Foreign Image(s) CT Angio Chest (10/13/2023 12:00 AM CDT) Narrative POCT - 12/09/2023 11:05 AM CDT These outside images have been uploaded into PACS. If the results were provided, they will be located in the patient's chart under the Media or Imaging tab. Foreign Images Provider RAD NON-REPORTAB LES POCT documented in this encounter Visit Diagnoses Not on filedocumented in this encounter Care Teams Motel Operator Relationship Specialty Start Date End Date Unassigned, Provider [address] [place] [address] PCP - General 01/20/00 12/08/23 documented as of this encounter
--- OUTSIDE RECORDS SUMMARY | 2023-12-18 16:45 | XMS_ITS | Encounter Summary ---
Author Organization [facility] Address [address], [place] [address] Care Team Providers Care Pcb Design Engineer Name Role Phone Ciara Quiñones MD Primary Care Provider +1- [phone] Reason for Referral * Procedure/Equipment (Routine) - Incomplete Specialty Diagnoses / Procedures Referred By Contac t Referred To Contact Diagnoses Other emphysema (HRC) COPD, severe (HRC) Oxygen dependent (HRC) Pulmonary emphysema, unspecified emphysema type (HRC) Lung mass Procedures NM PET/CT Skull Base To Mid Thigh Boaz Loco MD [address] [facility] [address] [place] [address] Referral ID Status Reason Start Date Expiration Date V isits Requested Visits Authorized [id number] Incomplete 12/10/2023 03/10/2025 6 6 Reason for Visit * Reason Comments CONSULT Encounter Details Date Type Department Care Team (Late st Contact Info) Description 12/09/2023 10:00 AM CDT Office Visit Specialty Center 3931 Pulmonary Medicine [address] [place], [place] [phone] Boaz Loco MD [address] [facility] [address] [place] [address] Other emphysema (HRC) (Primary Dx); COPD, severe (HRC); Oxygen dependent (HRC); Pulmonary emphysema, unspecified emphysema type (HRC); Lung mass; Tobacco abuse (HRC) Social History Tobacco Use Types Packs/Day Years [...] on file documented as of this encounter Last Filed Vital Signs Vital Sign Reading [...] Mass Index 47.65 12/09/2023 9:53 AM CDT documented in this encounter Patient Instructions * Patient Instructions* Boaz Loco MD - 12/09/2023 10:00 AM CDT Images from the original note were not included. Stay on the advair 1 puff twice a day. Take the neb 4-5 times a day as you are. Take two puffs of the spiriva daily. Oxygen is 3 lpm around the clock. Stop smoking now, never start again. Start the chantix starter and then go to full dose. documented in this encounter Progress Notes * Boaz Loco MD - 12/09/2023 12:00 AM CDT NAME: KADE [facility]: [id number] CLINIC NOTE DATE OF SERVICE: 12/09/2023 : 1955 SUBJECTIVE: Kade is referred for evaluation of pulmonary density. She has a long history of smoking. She has a 53 pack-year smoking history. She has never really stopped smoking. She quit for 2 months at 1 time. She is smoking about 1 pack per day. She had a pulmonary embolism in 2022 and is on anticoagulation in the form of Eliquis for that. She also had what it was probably a tension pneumothorax on the right side of chest in 05/2023. She was ultimately transferred from [facility] to [facility] for possible surgery. However, her air leak resolved without surgery and the chest tube was ultimately removed and she was discharged. She also had a liver lesion that was of concern and had a liver biopsy that was apparently benign. Currently, she is referred for evaluation ofa pulmonary nodule. She retired in 2017. She does have a pet dog and cat, but no hot tub. She has no recent travel. She had pneumonia about 5 years ago. She is on Advair for 3 to 5 years. She has been on chronic oxygen. She naps 4 to 5 times a day and takes Advair 250 once a day. She has tried Chantix patches and gum. She has a daily productive cough, so chronic obstructive bronchitis of mostly nonpurulent sputum. She has been short of breath for over 3 years. She has less than 1 block dyspnea on exertion on 1 flight stairs. She gets short of breath with ADLs. She had a CT pulmonary angiogramdated 10/12 in [place]. The report of that shows no evidence of pulmonary embolism. There is a left upper lobe 1.7 x 1.7 cm solid pulmonary nodule and adjacent 0.3 cm nodule scattered areas of atelectasis and scarring in the right upper lobe with predominant mild central lobular emphysema noted.There was no mediastinal lymph nodes noted. No masses in the chest wall noted. The hypodense mass in the liver apparently previously biopsies was reported as well. There is also a right rib fracture that appears acute and sclerosis in the seventh rib that is subacute to chronic and a soft tissue nodularity in the region of the right sixth rib measuring 1.9 cm and an adjacent old left rib fracture. The impression says left upper lobe pulmonary nodule suspicious for malignancy and right rib fracture that may be pathologic considering the soft tissue nodularity around this, although it could represent a small hematoma, but tumor is not ruled out I believe. There is the hypodense lesion in the liver. REVIEW OF SYSTEMS: Otherwise negative. PHYSICAL EXAMINATION: GENERAL: Pleasant woman, in no acute distress. VITAL SIGNS: Noted. HEENT: Shows TMs clear. Nasopharynx normal. Oropharynx shows no lesions. There is no thyromegaly oradenopathy. CHEST: Clear to auscultation and percussion with decreased breath sounds, prolonged expiratory phase. CARDIAC: Shows regular rate and rhythm without gallops, rubs, or murmurs. ABDOMEN: Soft. EXTREMITIES: Show DJD. NECK: Normal. BACK: Normal. NEUROLOGIC: Normal strength, gait, and station. LABORATORY EVALUATION: Includes pulmonary function test showing FEV1/FVC of 0.81/1.95 (42%/81%). There is a 9% bronchodilator response at which time her FEV1 is 0.99 (51%). Total lung capacity is 128%, DLCO markedly decreased at 57%, FeNO was 25, resting room air is 84, on 3 L she is 92, and dropped to 88 with walking. She is recommended to have 3 L continuous oxygen and a #[address] scan outside images are reviewed. CT pulmonary angiogram from October 12 and there is some right upper lobe atelectasis appears potentially chronic, but again the left mid lung field nodule about thelevel of the main sophia is noted. ASSESSMENT: 1.Chronic obstructive pulmonary disease. We talked about this in detail for counseling time. We will make sure she is on triple therapy. 2.Hypoxemia. Recommended oxygen as per our tests and PFT lab. 3.Pulmonary nodule. This is extremely likely to be a primary lung malignancy. We will plan on doinga PET scan and then consider a CT-guided needle biopsy. In terms of her tobacco cessation. She has a prescription for Chantix, and we told her how to take that and she is on Advair 250, and we will add Spiriva Respimat to that prior to the. DICTATION ENDS HERE. MD ENRIQUE MCGOWAN/DAYAN /[id number] cc:CIARA QUIÑONES MD [address] [place] [phone] documented in this encounter Plan of Treatment Upcoming Encounters Date Type Department Care Team (Late st Contact Info) Description 12/23/2023 3:30 PM SPRINKLING SYSTEM INSTALLER Office Visit Specialty Center 39[address] Pulmonary Medicine [address] [facility] [place] [address] Boaz Loco MD [address] [facility] [address] [place] [address] Scheduled Orders Name Type Priority Associated Diagnoses Orde r Schedule NM PET/CT Skull Base To Mid Thigh Imaging New STAT Other emphysema (HRC) COPD, severe (HRC) Oxygen dependent (HRC) Pulmonary emphysema, unspecified emphysema type (HRC) Lung mass Expected: 12/10/2023 (Approximate), Expires: 12/09/2024 documented as of this encounter Visit Diagnoses Diagnosis Pulmonary emphysema, unspecified emphysema type (HRC) COPD, severe (HRC) Chronic airway obstruction, not elsewhere classified Oxygen dependent (HRC) Dependence on supplemental oxygen Lung mass Swelling, mass, or lump in chest Tobacco abuse (HRC) Tobacco use disorder documented in this encounter Care Teams Pcb Design Engineer Relationship Specialty Start Date End Date Ciara Quiñones MD [address] [place] [address] PCP - General Internal Medicine 12/09/23 documented as of this encounter
--- OUTSIDE RECORDS SUMMARY | 2023-12-18 16:45 | XMS_ITS | Encounter Summary ---
Author Organization [facility] Address [address] [place] [address] Care Team Providers Care Surgeon Assistant Name Role Phone Unassigned, Provider Primary Care Provider Unava ilable Reason for Visit * Reason Comments Appt. Scheduled Pt is scheduled for 12/09/23 Encounter Details Date Type Department Care Team (Late Contact Info) Description 12/03/2023 Telephone Specialty Center 3931 Pulmonary Medicine [address] [facility] [address] [place], [place] [address] Boaz Loco MD [address] [facility] [address] [place], [place] [address] Appt. Scheduled (Pt is scheduled for 12/09/23 ) Social History Tobacco Use Types Packs/Day Years Used Date Smoking Tobacco: Never Assessed Sex and Gender Information Value Date Recorded Sex Assigned at Not on file Gender Identity Not on file Sexual Orientation Not on file documented as of this encounter Nursing Notes * Tolu Lee - 12/03/2023 10:44 AM CDT Lm for pt inregards to a pulmonary consult scheduled for her on 12/09/23 at [facility] the breathingtest is at [address] Loco appt is at 1000am and to please call us back at [phone] option 1 documented in this encounter Plan of Treatment Upcoming Encounters Date Type Department Care Team (Late Contact Info) Description 12/23/2023 3:30 PM INTEGRITY DIRECTOR Office Visit Specialty Center 3931 Pulmonary Medicine [address] [facility] [place] [address] Boaz Loco MD [address] [facility] [address] [place] [address] documented as of this encounter Visit Diagnoses Not on filedocumented in this encounter Care Teams Surgeon Assistant Relationship Specialty Start Date End Date Unassigned, Provider [address] [place] [address] PCP - General 01/20/00 12/08/23 documented as of this encounter
--- OUTSIDE RECORDS SUMMARY | 2023-12-18 16:45 | XMS_ITS | Encounter Summary ---
Author Organization [facility] Address [address] [place] [id number] Care Team Providers Care Acid Cleaner Name Role Phone Unassigned, Provider Primary Care Provider Unava ilable Encounter Details Date Type Department Care Team (Late st Contact Info) Description 12/03/2023 Telephone [facility] [address] [place], [place] [address] Unknown, Physician [address] [place] [id number] Social History Tobacco Use Types Packs/Day Years Used Date Smoking Tobacco: Never Assessed Sex and Gender Information Value Date Recorded Sex Assigned at Not on file Gender Identity Not on file Sexual Orientation Not on file documented as of this encounter Nursing Notes * Lauren Espinosa RN - 12/03/2023 9:39 AM CDT Imaging dept called to stated they are unable to pull any imaging. They will send request for CD, may take up to 2 weeks. * Lauren Espinosa RN - 12/03/2023 9:15 AM CDT Urgent referral received. Ent Physician will be calling. Imaging push request sent. documented in this encounter Plan of Treatment Upcoming Encounters Date Type Department Care Team (Late st Contact Info) Description 12/23/2023 3:30 PM TABLE CUT OFF SAW OPERATOR Office Visit [facility] Pulmonary Medicine [address] [facility] [place] [address] Boaz Loco MD [address] [facility] [address] [place] [address] documented as of this encounter Visit Diagnoses Not on filedocumented in this encounter Care Teams Acid Cleaner Relationship Specialty Start Date End Date Unassigned, Provider [address] [place] [address] PCP - General 01/20/00 12/08/23 documented as of this encounter
--- OUTSIDE RECORDS SUMMARY | 2023-12-18 16:45 | XMS_ITS | Encounter Summary ---
Author Organization [facility] Address [address], [place] [address] Care Team Providers Care Porcelain Enameling Supervisor Name Role Phone Unassigned, Provider Primary Care Provider Unava ilable Encounter Details Date Type Department Care Team (Late st Contact Info) Description 10/13/2023 12:05 AM CDT Ancillary Procedure [facility] [address] [place] [address] Provider, Foreign Images [address] [place] [address] Social History Tobacco Use Types Packs/Day Years Used Date Smoking Tobacco: Never Assessed Sex and Gender Information Value Date Recorded Sex Assigned at Not on file Gender Identity Not on file Sexual Orientation Not on file documented as of this encounter Plan of Treatment Upcoming Encounters Date Type Department Care Team (Late st Contact Info) Description 12/23/2023 3:30 PM BLOCK GREASER Office Visit [facility] Pulmonary Medicine [address] [facility] [place] [address] Boaz Loco MD [address] [facility] [address] [place] [address] documented as of this encounter Procedures Procedure Name Priority Date/Time Associated Diagnosis Comments FOREIGN IMAGE(S) XR CHEST Routine 10/13/2023 12:05 AM CDT documented in this encounter Results * Foreign Image(S) XR Chest (10/13/2023 12:05 [...] on filedocumented in this encounter Care Teams Porcelain Enameling Supervisor Relationship Specialty Start Date End Date Unassigned, Provider [address] [place] [address] PCP - General 01/20/00 12/08/23 documented as of this encounter
--- OUTSIDE RECORDS SUMMARY | 2023-12-18 16:45 | XMS_ITS | Clinical Summary ---
Author Organization [facility] Address [place], [place] [address] Care Team Providers Care [place] Attorney Name Role Phone Ciara Jon MD Primary Care Provider [phone] Allergies No known active allergies Medications Medication [...] Type Department Care Team Description 10/17/2023 Telephone [facility] [place] [address] [facility] [address] [place] [address] Tomás De Jesus MD Appointment [...] 0 10/03/2022 Social Connections Answer Date Recorded Do you often feel lonely or isolated from those around you? 0 05/20/2023 Financial Resource Strain Answer Date R ecorded Difficulty of Paying Living Expenses 3 05/20/2023 Difficulty of Paying Living Expenses Not on file 05/20/2023 Food Insecurity Answer Date Recorded Do you worry your food will run out before you are able to buy more? 1 05/20/2023 Transportation Needs Answer Date Record ed Does lack of transportation keep you from medica l appointments? 1 05/20/2023 Does lack of transportation keep you from work, meetings or getting things that you need? 1 05/20/2023 Housing Stability Answer Date Recorded What is your housing situation today? 1 05/20/2023 Sex and Gender Information Value [...] st Contact Info) Description 01/19/2024 11:20 AM DIPLOMA MEDICAL ASSISTANT Office Visit [facility] [place] [address] [address] [place] [id number] Bc Leon MD [address] [facility] [address] [place] [address] Health Maintenance Due Date Last Done Comments [...] 2004 DEXA/DXA scan for age 65+ 05/20/2019 Medicare Wellness for age 65+ 05/20/2019 Depression screening for age 12+ 09/27/2023 09/27/19 23, 04/11/2022 COVID-19 vaccine series ( season) 2023 11/21/2022, 12/06/2021, 07/24/2021, Additional history exists Influenza for age 65+ 10/12/2023 Advance Directives * Full Code (Latest Code Status on File) Date Activated Date Inactivated Comments 05/15/2023 7:34 PM 05/20/2023 8:16 PM Question Answer Comments Code Status Discussion: Reviewed Preferences Care Teams [place] Attorney Relationship Specialty Start Date End Date Ciara Jon MD [address] [place] [address] PCP - General Internal Medicine 01/01/22
--- NOTE | 2023-12-18 17:00 | PE_ITS ---
[facility] [address] [facility] [address] Phone:?[phone] Fax:?[phone] Referring Physician Information: Ciara Jon M.D. [address] [facility] [address] Phone:?[phone] Fax:?[phone] Patient:Dion Mccoy D.O.B:?1955 Sex:?Female Phone:?[phone] [facility] MRN:?[id number] Exam Date:?12/18/2023 EXAM:?PET/CT EYES TO THIGHS, CANCER INITIAL STAGING CLINICAL INFORMATION: Evaluate lung nodule TECHNICAL INFORMATION: Helical acquisition of data was obtained from the orbits to the upper thighs with reconstruction of 3.75 mm thick images at 3.[address] data was used for attenuation correction. PET scanning was performed through the same anatomic range 60 minutes following administration of 13.85 mCi of 18-FDG delivered intravenously. The patient's glucose at the time of the injection was 129 mg/dL. PET, CT and PET/CT fusion images are interpreted using a computer viewing workstation. PET, CT and PET/CT fusion images were archived and saved in the patient's permanent medical record. COMPARISON: CT chest 10/13/2023 INTERPRETATION: Mediastinal mediastinal blood pool activity: 4.62 Background liver parenchymal uptake: 4.95 Head and Neck: There are no abnormal hypermetabolic foci within the head or neck. There is physiologic uptake in the intracranial soft tissues. Chest: Redemonstrated nodule in the left upper lobe measuring 1.4 x 1.3 cm, similar to slightly decreased in size from the previous exam when it measured 1.6 x 1.6 cm (series 202 image 98). Low-level radiotracer avidity with an SUV max of 4.94. No new lung nodules. Subsegmental atelectasis in the right upper and lower lobes. No pleural effusion or pneumothorax. Abdomen and Pelvis: Complex cystic lesion along the inferior right hepatic lobe measures 9.0 x 5.9 cm, measuring approximately 5.4 x 3.8 cm on the comparison exam from 12/15/2022. Low-level FDG avidity along the superomedial aspect with an SUV max of 8.04. There is physiologic excretion of radiotracer in the urine and bowel. A 1.2 cm hemorrhagic/proteinaceous cyst in the upper pole of the left kidney. No hydronephrosis. Aortoiliac atherosclerosis. Colonic diverticulosis. Skeleton, Musculature, and Integument: No marcial osteoblastic or osteolytic disease. Several old fractures right lateral ribs with mild FDG avidity. A rounded cystic lesion in the left gluteal region measures 3.1 x 2.8 cm (series 202 image 241). CONCLUSION: * Similar to slightly decreased size of a 1.4 cm nodule in the left upper lobe with low level FDG avidity. This nodule remains indeterminate but has not significantly changed dating back to the exam from 12/15/2022. Recommend continued surveillance with follow-up CT chest in 3-6 months. * A nonspecific complex cystic lesion along the inferior right hepatic lobe. There is a small focus of mild FDG avidity along the superomedial aspect which is nonspecific. The lesion has not significantly changed from the most recent comparison exams but has increased in size from the comparison CT from 12/15/2022. Its possible there was hemorrhage within the lesion related to interval trauma. Recommend short interval follow-up MRI abdomen without and with contrast in 3 months. Electronically signed on 12/22/2023 3:59:00 PM by Fredo Fierro D.O
== END 2023-12-18 16:41 | disposition home or self-care (01) ==
PROVIDERS: PCP Internal Medicine; Visit Provider Internal Medicine
DX: R91.1 Solitary pulmonary nodule (principal); K76.89 Other specified diseases of liver
CPT/HCPCS: 78815; A9552

== ENCOUNTER 2024-05-18 11:09 | Outpatient (CLI) | payer MEDICARE, SELFPAY ==
--- NOTE | 2024-05-18 11:30 | CRLHL7_ITS ---
For Patients: As a result of the Cures Act, medical imaging exams and procedure reports are released immediately into your electronic medical record. You may view this report before your referring provider. If you have questions, please contact your health care provider. BILATERAL SCREENING MAMMOGRAM WITH COMPUTER-AIDED DETECTION AND TOMOSYNTHESIS TECHNIQUE: CC and MLO views were obtained. These mammographic images have been obtained using full-field digital technique. These mammographic images were interpreted with the benefit of computer-aided detection. Breast Tomosynthesis was used in this interpretation. COMPARISON FILM: 12/17/21, 11/16/20, 11/11/19. FINDINGS: There are scattered areas of fibroglandular density IMPRESSION: There is no radiographic evidence for malignancy. ASSESSMENT: BI-RADS Category 2: Benign RECOMMENDATION: Routine screening mammogram in 1 year. A lay language report of this examination will be provided to the patient. Mark August M.D. Diagnostic Radiologist [email or web address] Transcribed: 4:29 [email or web address] [email or web address]/Dictated by: Mark August MD @ 05/18/2024 1:37:00 PM (Electronically Signed)
== END 2024-05-18 11:10 | disposition home or self-care (01) ==
LOC: MAMMO 11:09
PROVIDERS: PCP Internal Medicine; Visit Provider Internal Medicine
DX: Z12.31 Encounter for screening mammogram for malignant neoplasm of breast (principal)
CPT/HCPCS: 77063; 77067

== ENCOUNTER 2024-05-25 11:58 | Outpatient (CLI) | payer MEDICARE, SELFPAY ==
--- NOTE | 2024-05-25 14:20 | P.ANES_ITS ---
Anesthesia Charges Start Date/Time Anesthesia Start Date: 05/25/24 Anesthesia Start Time: 13:40 Stop Date/Time Anesthesia Stop Date: 05/25/24 Anesthesia Stop Time: 14:13 Summary Extremes of Age - Over 70 or under 1: AREA SUPERVISOR Coding CPT Codes CPT Codes: ANES LWR INTST NDSC NOS - 17330 ([id number]) P4 - PT W/SEV SYS DIS THREAT LIFE, QZ - AREA SUPERVISOR SVC W/O PHOTOGRAPHIC PLATEMAKER BY Additional Codes: Summary - Extremes of Age - Over 70 or under 1: AREA SUPERVISOR ([id number])
--- NOTE | 2024-05-25 14:20 | W.ANESCHARGE ---
Anesthesia Charges Start Date/Time Anesthesia Start Date: 05/25/24 Anesthesia Start Time: 13:40 Stop Date/Time Anesthesia Stop Date: 05/25/24 Anesthesia Stop Time: 14:13 Summary Extremes of Age - Over 70 or under 1: CIRCUIT BREAKER ASSEMBLER Coding CPT Codes CPT Codes: ANES LWR INTST NDSC NOS - 76888 ([id number]) P4 - PT W/SEV SYS DIS THREAT LIFE, QZ - CIRCUIT BREAKER ASSEMBLER SVC W/O FRANCHISE MANAGER BY Additional Codes: Summary - Extremes of Age - Over 70 or under 1: CIRCUIT BREAKER ASSEMBLER ([id number])
== END 2024-05-25 11:59 | disposition home or self-care (01) ==
LOC: OP CLINIC 11:58
PROVIDERS: PCP Internal Medicine; Visit Provider Surgery
DX: Z12.11 Encounter for screening for malignant neoplasm of colon (principal); D12.3 Benign neoplasm of transverse colon; K63.89 Other specified diseases of intestine; D12.0 Benign neoplasm of cecum; D12.5 Benign neoplasm of sigmoid colon
CPT/HCPCS: 00811; 45380; 45385; 88305; 99100; J2704

== ENCOUNTER 2024-11-18 09:24 | Outpatient (CLI) | payer MEDICARE, SELFPAY | END 2024-11-18 09:25 | disposition home or self-care (01) | PROVIDERS: PCP Internal Medicine; Visit Provider Internal Medicine | DX: J44.9 Chronic obstructive pulmonary disease, unspecified (principal); E66.01 Morbid (severe) obesity due to excess calories; Z68.43 Body mass index [BMI] 50.0-59.9, adult | CPT/HCPCS: 80048; 82306; 84439; 84443 ==